=== PATIENT | female | born 1925 | race Caucasian/White ===

== ENCOUNTER 2017-03-23 17:15 | Inpatient (IN) | payer OTHER, MEDICARE ==
[~2017-03-23] VITALS: Ht 152.4 cm; Wt 45.0 kg
[~2017-03-23 17:15] MED LIST: Z.0.NO CURRENT MEDS
[2017-03-23 18:03] VITALS: BP 144/66; PULSE 97; RESP 24; TEMP 98.4; O2SAT 96
--- NOTE | 2017-03-23 18:41 | PD ---
HPI Chief Complaint: General Weakness Time Seen by Provider: 18:28 Travel History International Travel<30 days: No Contact w/Intl Traveler<30days: No Traveled to known affect area: No History of Present Illness HPI 89-year-old female that presents to the ED for evaluation of generalized weakness. Patient presents here for generalized weakness and inability to ambulate because of weakness. Per patient she has "no energy". Per patient she feels "empty" inside. From I can tell she states that she's been having multiple falls. Apparently she had a transfusion about a week ago with a different facility. She states that she will likely go to an ASSISTED. She states that she has hurt her legs multiple times. She states that today she could not get up. Per patient she feels very thirsty. She also has some shortness of breath and she was found to be hypoxic initially and was given oxygen which didn 't brought back her oxygenation. She denies any pain. No fevers chills or sweats. No urinary or bowel movement issues. No allergies to medication. She states she has bruises and contusions from multiple falls. PFSH Past Medical History Arthritis: No Asthma: No Autoimmune Disease: No Blood Disorders: No Heart Rhythm Problems: No Cancer: No Cardiovascular Problems: No High Cholesterol: No Chemotherapy: No Chest Pain: No Congestive Heart Failure: No COPD: No Cerebrovascular Accident: No Diabetes: No Endocrine: No GERD: No Glaucoma: No Genitourinary: No Headaches: No Hepatitis: No Hiatal Hernia: No Hypertension: No Immune Disorder: No Kidney Stones: No Musculoskeletal: No Neurologic: No Psychiatric: No Reproductive: No Respiratory: No Migraines: No Myocardial Infarction: No Radiation Therapy: No Renal Failure: No Seizures: No Sleep Apnea: No Thyroid Disease: No Ulcer: No Past Surgical History Abdominal Surgery: Yes () AICD: No Appendectomy: No Arteriovenous Shunt: No Cardiac Surgery: No Cholecystectomy: No Ear Surgery: No Endocrine Surgery: No Eye Surgery: No Genitourinary Surgery: No Gynecologic Surgery: No Hysterectomy: Yes Insulin Pump: No Joint Replacement: No Oral Surgery: No Pacemaker: No Thoracic Surgery: No Social History Alcohol Use: No Tobacco Use: No Substance Use: No Allergies-Medications (Allergen,Severity, Reaction): Coded Allergies: No Known Allergies (Verified , 03/23/17) Reported Meds & Prescriptions Reported Meds & Active Scripts Active Reported Levoxyl (Levothyroxine Sodium) 50 Mcg Tab 50 Mcg PO DAILY Metoprolol Tartrate 50 Mg Tab 50 Mg PO BID Review of Systems ROS Limitations: Poor Historian Except as stated in HPI: all other systems reviewed are Neg Physical Exam Narrative GENERAL: SKIN: Warm and dry. HEAD: Atraumatic. Normocephalic. EYES: Pupils equal and round. No scleral icterus. No injection or drainage. ENT: No nasal bleeding or discharge. Mucous membranes pink and moist. Tongue is midline. No uvula deviation. NECK: Trachea midline. No JVD. CARDIOVASCULAR: Regular rate and rhythm. No murmurs, S3, S4. RESPIRATORY: No accessory muscle use. Clear to auscultation. Breath sounds equal bilaterally. GASTROINTESTINAL: Abdomen soft, non-tender, nondistended. Hepatic and splenic margins not palpable. MUSCULOSKELETAL: Extremities without clubbing, cyanosis, or edema. No obvious deformities. Full range of motion of the upper and lower extremities bilaterally. 2+ pulses bilaterally. She has abrasions and bruising to her frontal legs bilaterally. Worst on right. NEUROLOGICAL: Awake and alert. No obvious cranial nerve deficits. Motor grossly within normal limits. Five out of 5 muscle strength in the arms and legs. Normal speech. PSYCHIATRIC: Appropriate mood and affect; insight and judgment normal. Data Data Last Documented VS Vital Signs Date Time Temp Pulse Resp B/P (MAP) Pulse Ox O2 Delivery O2 Flow Rate FiO2 03/23/17 18:47 110 18 100 Nasal Cannula 2.00 03/23/17 18:47 135/70 (91) 03/23/17 18:03 98.4 Orders Orders Electrocardiogram (03/23/17 18:28) Complete Blood Count With Diff (03/23/17 18:28) Comprehensive Metabolic Panel (03/23/17 18:28) Ckmb (Isoenzyme) Profile (03/23/17 18:28) Troponin I (03/23/17 18:28) B-Type Natriuretic Peptide (03/23/17 18:28) Prothrombin Time / Inr (Pt) (03/23/17 18:28) Act Partial Throm Time (Ptt) (03/23/17 18:28) Blood Culture (03/23/17 18:28) Urinalysis - C+S If Indicated (03/23/17 18:28) Magnesium (Mg) (03/23/17 18:28) Thyroid Stimulating Hormone (03/23/17 18:28) Chest, Single Ap (03/23/17 18:28) Ct Brain W/O Iv Contrast(Rout) (03/23/17 18:28) Iv Access Insert/Monitor (03/23/17 18:28) Ecg Monitoring (03/23/17 18:28) Oximetry (03/23/17 18:28) Spine, Lumbar Comp W/Obliq (03/23/17 ) Type And Screen (03/23/17 18:32) Sodium Chlor 0.9% 250 Ml Inj (Ns 250 Ml (03/23/17 18:45) Tibia/Fibula (Ap/Lat) (03/23/17 18:34) Tibia/Fibula (Ap/Lat) (03/23/17 ) Sodium Chloride 0.9... W/Pantoprazole In (03/23/17 20:10) Admit Order (Ed Use Only) (03/23/17 20:33) Place In Observation (03/23/17 ) Vital Signs (Adult) Q4H (03/23/17 20:34) Activity Oob With Assistance (03/23/17 20:34) Flight Operations Manager / Telemetry .CONTINUOUS (03/23/17 20:34) Intake + Output MARIA GUADALUPE.QSHIFT (03/23/17 20:34) Diet Heart Healthy (03/24/17 Breakfast) Sodium Chloride 0.9% Flush (Ns Flush) (03/23/17 20:45) Sodium Chloride 0.9% Flush (Ns Flush) (03/23/17 21:00) Basic Metabolic Panel (Bmp) (03/24/17 06:00) Complete Blood Count With Diff (03/24/17 06:00) Pt Request For Service (03/23/17 20:34) Case Management Consult (03/23/17 20:34) Naloxone Inj (Narcan Inj) (03/23/17 20:45) Echo 2d Comp With Doppler (03/23/17 ) Hgb & Hct (03/23/17 23:55) Consult Gastroenterology (03/23/17 ) Labs Laboratory Tests Test 03/23/17 18:15 03/23/17 18:45 White Blood Count 9.0 TH/MM3 Red Blood Count 3.17 MIL/MM3 Hemoglobin 8.0 GM/DL Hematocrit 24.9 % Mean Corpuscular Volume 78.4 FL Mean Corpuscular Hemoglobin 25.1 PG Mean Corpuscular Hemoglobin Concent 32.0 % Red Cell Distribution Width 19.1 % Platelet Count 434 TH/MM3 Mean Platelet Volume 6.9 FL Neutrophils (%) (Auto) 79.1 % Lymphocytes (%) (Auto) 6.4 % Monocytes (%) (Auto) 11.0 % Eosinophils (%) (Auto) 2.6 % Basophils (%) (Auto) 0.9 % Neutrophils # (Auto) 7.1 TH/MM3 Lymphocytes # (Auto) 0.6 TH/MM3 Monocytes # (Auto) 1.0 TH/MM3 Eosinophils # (Auto) 0.2 TH/MM3 Basophils # (Auto) 0.1 TH/MM3 CBC Comment DIFF FINAL Differential Comment Prothrombin Time 12.7 SEC Prothromb Time International Ratio 1.1 RATIO Activated Partial Thromboplast Time 34.1 SEC Blood Urea Nitrogen 13 MG/DL Creatinine 0.91 MG/DL Random Glucose 96 MG/DL Total Protein 6.6 GM/DL Albumin 1.4 GM/DL Calcium Level 7.7 MG/DL Magnesium Level 2.0 MG/DL Alkaline Phosphatase 357 U/L Aspartate Amino Transf (AST/SGOT) 30 U/L Alanine Aminotransferase (ALT/SGPT) 12 U/L Total Bilirubin 0.7 MG/DL Sodium Level 131 MEQ/L Potassium Level 3.8 MEQ/L Chloride Level 94 MEQ/L Carbon Dioxide Level 27.2 MEQ/L Anion Gap 10 MEQ/L Estimat Glomerular Filtration Rate 58 ML/MIN Total Creatine Kinase 8 U/L Troponin I LESS THAN 0.02 NG/ML B-Type Natriuretic Peptide 537 PG/ML Thyroid Stimulating Hormone 3rd Gen 1.320 uIU/ML Urine Color YELLOW Urine Turbidity CLEAR Urine pH 7.0 Urine Specific [place] 1.014 Urine Protein 30 mg/dL Urine Glucose (UA) NEG mg/dL Urine Ketones NEG mg/dL Urine Occult Blood NEG Urine Nitrite NEG Urine Bilirubin NEG Urine Urobilinogen GREATER THAN 12.0 MG/DL Urine Leukocyte Esterase NEG Urine RBC 1 /hpf Urine WBC 1 /hpf Urine Squamous Epithelial Cells 1 /hpf Microscopic Urinalysis Comment CULT NOT INDICATED MDM Medical Decision Making Medical Screen Exam Complete: Yes Emergency Medical Condition: Yes Medical Record Reviewed: Yes Interpretation(s) CBC & BMP Diagram 03/23/17 18:15 Total Protein 6.6, Albumin 1.4 L, Calcium Level 7.7 L, Magnesium Level 2.0, Alkaline Phosphatase 357 H, Aspartate Amino Transf (AST/SGOT) 30, Alanine Aminotransferase (ALT/SGPT) 12, Total Bilirubin 0.7 Troponin and CKMB negative BNP in the 500s CXR shows cardiomegaly with pulmonary edema CT head shows no acute disease Differential Diagnosis Generalized weakness versus anemia versus bleeding versus lower leg weakness versus UTI versus sepsis versus dementia versus multiple falls versus fractures Narrative Course 89-year-old female that presents to the ED for evaluation of generalized weakness. Patient was properly examined and was found to have signs and symptoms consistent with generalized weakness. Labs and imaging were ordered. Labs and imaging showed what appears to be anemia with positive Hemoccult. Patient also appears to have some degree of CHF. This was discussed with the patient. I recommend admission for further workup. I spoke with my attending who recommends against blood transfusion at this time. Patient will be worked about GI for this. Case discussed with Dr. Arevalo who agrees to admission. [facility] Point of Care Internal Pos. & Neg. Controls: Passed Fecal Specimen Occult Blood: Positive Diagnosis Primary Impression: GI bleed Qualified Codes: K92.2 - Gastrointestinal hemorrhage, unspecified Additional Impressions: Generalized weakness CHF (congestive heart failure) Qualified Codes: I50.9 - Heart failure, unspecified Admitting Information Admitting Physician Requests: Observation Roman Peraza Mar 23, 2017 18:41
[2017-03-23] MEDS ORDERED: METO50TA PO (18:45)
[2017-03-23] MEDS ORDERED: SODIUM CHLOR 0.9% 250 ML INJ 250 ML IV ONE (18:45)
[2017-03-23] MEDS ORDERED: LEVO50TA4 PO (18:45)
[2017-03-23] MEDS ORDERED: LEVO50TA53 PO (18:45)
[2017-03-23 18:47] VITALS: BP 135/70; PULSE 99; RESP 16; O2SAT 99
[2017-03-23 18:49] LABS: AUTOMATED NEUTROPHIL # 7.1 TH/MM3 (1.8-7.7); BASOPHIL # 0.1 TH/MM3 (0-0.2); BASOPHIL % 0.9 % (0.0-2.0); EOSINOPHIL # 0.2 TH/MM3 (0-0.4); EOSINOPHIL % 2.6 % (0.0-4.0); HEMATOCRIT 24.9 % (35.0-46.0); HEMO FLAGS DIFF FINAL; LYMPH % 6.4 % (9.0-44.0); LYMPHOCYTE # 0.6 TH/MM3 (1.0-4.8); MEAN CELL VOLUME 78.4 FL (80.0-100.0); MEAN CORPUSCULAR HEMOGLOBIN 25.1 PG (27.0-34.0); NEUT % 79.1 % (16.0-70.0); PLATELET COUNT 434 TH/MM3 (150-450); RED BLOOD COUNT 3.17 MIL/MM3 (4.00-5.30); RED CELL DISTRIBUTION WIDTH 19.1 % (11.6-17.2)
[2017-03-23 19:01] LABS: APTT (PATIENT) 34.1 SEC (24.3-30.1); INTERNATIONAL NORMALIZED RATIO 1.1 RATIO; PROTHROMBIN TIME - PATIENT 12.7 SEC (9.8-11.6)
[2017-03-23 19:07] LABS: BLOOD, URINE NEG (NEG); COMMENT (UR) CULT NOT INDICATED; CULTURE IF INDICATED CULT NOT INDICATED; GLUCOSE,URINE NEG (NEG); KETONE, URINE NEG (NEG); NITRITE,URINE NEG (NEG); SQUAMOUS EPITHELIAL CELL URINE 1 /hpf (0-5); URINE COLOR YELLOW (YELLW/STRAW)
[2017-03-23 19:11] LABS: ALT (GPT) 12 U/L (10-53); ANION GAP 10 MEQ/L (5-15); AST (GOT) 30 U/L (15-37); BICARBONATE 27.2 MEQ/L (21.0-32.0); BLOOD UREA NITROGEN 13 MG/DL (7-18); CHLORIDE 94 MEQ/L (98-107); GLOMERULAR FILTRATION RATE 58 ML/MIN (>89); POTASSIUM 3.8 MEQ/L (3.5-5.1); SODIUM (NA) 131 MEQ/L (136-145)
[2017-03-23 19:21] LABS: ALKALINE PHOSPHATASE 357 U/L (45-117); TOTAL BILIRUBIN ADULT 0.7 MG/DL (0.2-1.0)
[2017-03-23 19:22] LABS: CREATINE KINASE 8 U/L (26-192)
--- NOTE | 2017-03-23 20:44 | RADRPT ---
EXAM DATE/TIME: 03/23/2017 19:05 [facility] COMPARISON: No previous studies available for comparison. INDICATIONS : Syncope. Patient states she kept falling today. MEDICAL HISTORY : None. SURGICAL HISTORY : section. Hysterectomy. ENCOUNTER: Initial ACUITY: 1 day PAIN SCORE: 0/10 LOCATION: Bilateral chest FINDINGS: The heart size is mildly enlarged. The lungs demonstrate diffuse prominence in the interstitial jake ings. No alveolar consolidation is seen. No effusion is seen. The bony structures are grossly intac t. CONCLUSION: Cardiomegaly with prominence of the interstitial markings diffusely representing pulm onary venous hypertension or mild edema. Anand Cook MD on March 23, 2017 at 20:34 Board Certified Radiologist. This report was verified electronically.
[2017-03-23] MEDS ORDERED: SODIUM CHLORIDE 0.9% FLUSH 10 ML FLUSH IV FLUSH PRN (20:45)
[2017-03-23] MEDS ORDERED: NALOXONE HCL 0.4 MG/ML AMP IV PRN (20:45)
--- NOTE | 2017-03-23 20:47 | RADRPT ---
EXAM DATE/TIME: 03/23/2017 19:09 [facility] COMPARISON: No previous studies available for comparison. INDICATIONS : Lower back pain after fall today. MEDICAL HISTORY : None. SURGICAL HISTORY : Hysterectomy. section. ENCOUNTER: Initial ACUITY: 1 day PAIN SCORE: 5/10 LOCATION: Bilateral lower back. FINDINGS: The lumbar vertebral bodies are normal in height. The lumbar vertebral bodies are normally aligned i n the sagittal plane. There is a minimal levocurvature of the lumbar spine seen in the AP projection. The disc spaces are grossly preserved. Minimal marginal osteophytes are seen. There is facet hype rtrophy at the L2-L3 through L5-S1 levels. Vascular calcifications are seen. Clips are seen in the right upper quadrant. CONCLUSION: Mild degenerative change. Anand Cook MD on March 23, 2017 at 20:34 Board Certified Radiologist. This report was verified electronically.
--- NOTE | 2017-03-23 20:49 | RADRPT ---
EXAM DATE/TIME: 03/23/2017 19:16 [facility] COMPARISON: No previous studies available for comparison. INDICATIONS : Left lower leg pain after fall today. MEDICAL HISTORY : None. SURGICAL HISTORY : Hysterectomy. section. ENCOUNTER: Initial ACUITY: 1 day PAIN SCORE: 2/10 LOCATION: Left lower leg. FINDINGS: No fracture is seen. The knee and ankle joints appear aligned. There is minimal spurring at the media l knee joint. The bones are osteopenic. No foreign body is seen. CONCLUSION: No acute disease. Anand Cook MD on March 23, 2017 at 20:47 Board Certified Radiologist. This report was verified electronically.
--- NOTE | 2017-03-23 20:50 | RADRPT ---
EXAM DATE/TIME: 03/23/2017 19:18 [facility] COMPARISON: No previous studies available for comparison. INDICATIONS : Generalized weakness following a fall. RADIATION DOSE: 56.39 CTDIvol (mGy) MEDICAL HISTORY : None SURGICAL HISTORY : Hysterectomy. ENCOUNTER: Initial ACUITY: 1 day PAIN SCALE: 6/10 LOCATION: cranial TECHNIQUE: Multiple contiguous axial images were obtained of the head. Using automated exposure control and adj ustment of the mA and/or kV according to patient size, radiation dose was kept as low as reasonably a chievable to obtain optimal diagnostic quality images. DICOM format image data is available electro nically for review and comparison. FINDINGS: CEREBRUM: The ventricles and cortical sulci are widened. There is decreased density in the cerebral white ren er likely from small vessel ischemic demyelination. No evidence of midline shift, mass lesion, hemorr cachorro or acute infarction. No extra-axial fluid collections are seen. POSTERIOR FOSSA: The cerebellum and brainstem are intact. The 4th ventricle is midline. The cerebellopontine angle i s unremarkable. EXTRACRANIAL: The visualized portion of the orbits is intact. SKULL: The calvaria is intact. No evidence of skull fracture. CONCLUSION: 1. No acute abnormality is seen. 2. Atrophy. Anand Cook MD on March 23, 2017 at 20:48 Board Certified Radiologist. This report was verified electronically.
--- NOTE | 2017-03-23 20:53 | RADRPT ---
EXAM DATE/TIME: 03/23/2017 19:14 [facility] COMPARISON: No previous studies available for comparison. INDICATIONS : Right lower leg pain after fall today. MEDICAL HISTORY : None. SURGICAL HISTORY : Hysterectomy. section. ENCOUNTER: Initial ACUITY: 1 day PAIN SCORE: 2/10 LOCATION: Right lower leg. FINDINGS: An acute fracture is not clearly identified. The knee and ankle joints are grossly norm ally aligned. The bones appear osteopenic. There does appear to be some osteophyte formation seen at the medial aspect of the knee joint. There is also some osteophytes at the patellofemoral region. No foreign bodies are seen. CONCLUSION: No acute abnormality is seen. Anand Cook MD on March 23, 2017 at 20:46 Board Certified Radiologist. This report was verified electronically.
[2017-03-23] MEDS ORDERED: FUROSEMIDE 20 MG/2 ML VIAL IV PUSH ONE (22:00)
[2017-03-23] MEDS: PANTOPRAZOLE INJ 80 MG in SODIUM CHLORIDE 0.9% INJ 100 ML IV SCH (22:14)
[2017-03-23] MEDS: SODIUM CHLORIDE 0.9% FLUSH 10 ML FLUSH IV FLUSH SCH (22:15)
--- NOTE | 2017-03-23 23:17 | HHI.HP ---
[facility] Unknown Admission Diagnosis GI bleed, generalized weakness, CHF Diagnoses: Chief Complaint: weakness and fatigue Travel History International Travel<30 Days: No Contact w/Intl Traveler <30 Da: No Traveled to Known Affected Are: No History of Present Illness Written by CARIE Barillas acting as scribe for [Irina] on 03/23/17 at 23: 16. 89 y/o female with a history of hypothyroid, HTN, anemia, and questionable dementia presented to the ED with complaints of weakness. Patient states she has been very fatigued, and having increased weakness which is causing her to fall. She states yesterday she was falling all day intermittently. She denies any LOC or hitting her head. She denies any chest pain, sob, fever, chills, or dizziness. Also denies any blood in stool or urine. She states 2 weeks ago she [facility] for [facility], and was told her blood count was low. She denies ever having a colonoscopy or EGD in the past, but she is unable to remember the surgeries she has had in the past. She states for the last 3 years she has lost 50 lbs, and has no appetite. Her weight loss began when she was taking care of her who 3 years ago. PCP is [facility] Dr. Margaret Echeverria Review of Systems Except as stated in HPI: all other systems reviewed are Neg Past Family Social History Past Medical History Hypothyroid HTN Anemia Past Surgical History C Section Reported Medications Reported Meds & Active Scripts Active Reported Levoxyl (Levothyroxine Sodium) 50 Mcg Tab 50 Mcg PO DAILY Metoprolol Tartrate 50 Mg Tab 50 Mg PO BID Allergies: Coded Allergies: No Known Allergies (Verified , 03/23/17) Active Ordered Medications Current Medications Medications (Trade) Dose Ordered Sig/Jennifer Route Start Time Stop Time Status Last Admin Sodium Chloride 250 ml @ 15 mls/hr ONCE ONCE IV 03/23/17 18:45 03/24/17 11:24 Pantoprazole Sodium 80 mg/ Sodium Chloride 100 ml @ 10 mls/hr Q10H IV 03/23/17 20:10 03/23/17 22:14 (NS Flush) 2 ml UNSCH PRN IV FLUSH 03/23/17 20:45 (NS Flush) 2 ml BID IV FLUSH 03/23/17 21:00 03/23/17 22:15 (Narcan Inj) 0.4 mg UNSCH PRN IV 03/23/17 20:45 (Synthroid) 50 mcg DAILY@0600 PO 03/24/17 06:00 (Lopressor) 50 mg BID PO 03/24/17 09:00 (Pneumovax-23 Inj) 25 mcg ONCE ONCE IM 03/25/17 10:00 03/25/17 10:01 Family History Mom: at age 95 after a hip fx Patient denies any heart disease or cancer in family. Social History Tobacco use: Denies Alcohol use: Occasionally Illicit drug use: Denies Physical Exam Vital Signs Vital Signs Date Time Temp Pulse Resp B/P (MAP) Pulse Ox O2 Delivery O2 Flow Rate FiO2 03/23/17 18:47 110 18 100 Nasal Cannula 2.00 03/23/17 18:47 99 16 135/70 (91) 99 Nasal Cannula 2.00 03/23/17 18:03 98.4 97 24 144/66 (92) 96 Physical Exam GENERAL: This is a well-nourished, well-developed patient, in no apparent distress. SKIN: Multiple scattered ecchymotic areas HEAD: Atraumatic. Normocephalic. EYES: Pupils equal round and reactive. Extraocular motions intact. ENT: Nose without bleeding, purulent drainage or septal hematoma. Airway patent. NECK: Trachea midline. No JVD CARDIOVASCULAR: Regular rate and rhythm without murmurs, gallops, or rubs. RESPIRATORY: Clear to auscultation. Breath sounds equal bilaterally. No wheezes , rales, or rhonchi. GASTROINTESTINAL: Abdomen soft, non-tender, nondistended. No hepato-splenomegaly , or palpable masses. No guarding. MUSCULOSKELETAL: Extremities without clubbing, cyanosis, or edema. No joint tenderness, effusion, or edema noted. No calf tenderness. NEUROLOGICAL: Awake and alert. Motor and sensory grossly within normal limits. Normal speech. Laboratory Laboratory Tests Test 03/23/17 18:15 03/23/17 18:45 White Blood Count 9.0 Red Blood Count 3.17 Hemoglobin 8.0 Hematocrit 24.9 Mean Corpuscular Volume 78.4 Mean Corpuscular Hemoglobin 25.1 Mean Corpuscular Hemoglobin Concent 32.0 Red Cell Distribution Width 19.1 Platelet Count 434 Mean Platelet Volume 6.9 Neutrophils (%) (Auto) 79.1 Lymphocytes (%) (Auto) 6.4 Monocytes (%) (Auto) 11.0 Eosinophils (%) (Auto) 2.6 Basophils (%) (Auto) 0.9 Neutrophils # (Auto) 7.1 Lymphocytes # (Auto) 0.6 Monocytes # (Auto) 1.0 Eosinophils # (Auto) 0.2 Basophils # (Auto) 0.1 CBC Comment DIFF FINAL Differential Comment Prothrombin Time 12.7 Prothromb Time International Ratio 1.1 Activated Partial Thromboplast Time 34.1 Blood Urea Nitrogen 13 Creatinine 0.91 Random Glucose 96 Total Protein 6.6 Albumin 1.4 Calcium Level 7.7 Magnesium Level 2.0 Alkaline Phosphatase 357 Aspartate Amino Transf (AST/SGOT) 30 Alanine Aminotransferase (ALT/SGPT) 12 Total Bilirubin 0.7 Sodium Level 131 Potassium Level 3.8 Chloride Level 94 Carbon Dioxide Level 27.2 Anion Gap 10 Estimat Glomerular Filtration Rate 58 Total Creatine Kinase 8 Troponin I LESS THAN 0.02 B-Type Natriuretic Peptide 537 Thyroid Stimulating Hormone 3rd Gen 1.320 Urine Color YELLOW Urine Turbidity CLEAR Urine pH 7.0 Urine Specific [place] 1.014 Urine Protein 30 Urine Glucose (UA) NEG Urine Ketones NEG Urine Occult Blood NEG Urine Nitrite NEG Urine Bilirubin NEG Urine Urobilinogen GREATER THAN 12.0 Urine Leukocyte Esterase NEG Urine RBC 1 Urine WBC 1 Urine Squamous Epithelial Cells 1 Microscopic Urinalysis Comment CULT NOT INDICATED Date/Time Source Procedure Growth Status 03/23/17 18:40 Blood Peripheral Aerobic Blood Culture Pending Received 03/23/17 18:40 Blood Peripheral Anaerobic Blood Culture Pending Received Result Diagram: 03/23/17181403/23/171814 Caprini VTE Risk Assessment Caprini VTE Risk Assessment: Mod/High Risk (score >= 2) VTE Pharm Contraindication: Hemorrhage Caprini Risk Assessment Model Point Value = 1 Point Value = 2 Point Value = 3 Point Value = 5 Age 41-60 Minor surgery BMI > 25 kg/m2 Swollen legs Varicose veins or History of unexplained or recurrent spontaneous Oral contraceptives or hormone replacement Sepsis (< 1 month) Serious lung disease, including pneumonia (< 1 month) Abnormal pulmonary function Acute myocardial infarction Congestive heart failure (< 1 month) History of inflammatory bowel disease Medical patient at bed rest Age 61-74 Arthroscopic surgery Major open surgery (> 45 min) Laparoscopic surgery (> 45 min) Malignancy Confined to bed (> 72 hours) Immobilizing plaster cast Central venous access Age >= 75 History of VTE Family history of VTE Factor V Leiden Prothrombin [id number] Lupus anticoagulant Anticardiolipin antibodies Elevated serum homocysteine Heparin-induced thrombocytopenia Other congenital or acquired thrombophilia Stroke (< 1 month) Elective arthroplasty Hip, pelvis, or leg fracture Acute spinal cord injury (< 1 month) Prophylaxis Regimen Total Risk Factor Score Risk Level Prophylaxis Regimen 0-1 Low Early ambulation 2 Moderate Order ONE of the following: *Sequential Compression Device (SCD) *Heparin 5000 units SQ BID 3-4 Higher Order ONE of the following medications: *Heparin 5000 units SQ TID *Enoxaparin/Lovenox 40 mg SQ daily (WT < 150 kg, CrCl > 30 mL/min) *Enoxaparin/Lovenox 30 mg SQ daily (WT < 150 kg, CrCl > 10-29 mL/min) *Enoxaparin/Lovenox 30 mg SQ BID (WT < 150 kg, CrCl > 30 mL/min) AND/OR *Sequential Compression Device (SCD) 5 or more Highest Order ONE of the following medications: *Heparin 5000 units SQ TID (Preferred with Epidurals) *Enoxaparin/Lovenox 40 mg SQ daily (WT < 150 kg, CrCl > 30 mL/min) *Enoxaparin/Lovenox 30 mg SQ daily (WT < 150 kg, CrCl > 10-29 mL/min) *Enoxaparin/Lovenox 30 mg SQ BID (WT < 150 kg, CrCl > 30 mL/min) AND *Sequential Compression Device (SCD) Assessment and Plan Problem List: (1) GI bleed ICD Code: K92.2 - Gastrointestinal hemorrhage, unspecified Status: Acute (2) CHF (congestive heart failure) ICD Code: I50.9 - Heart failure, unspecified Status: Acute (3) Generalized weakness ICD Code: R53.1 - Weakness Status: Acute Assessment and Plan 89 y/o female with a history of hypothyroid, HTN, anemia, and questionable dementia presented to the ED with complaints of weakness. Patient states she has been very fatigued, and having increased weakness which is causing her to fall. GI bleed, Hgb 8.2-->7.2, guaiac positive -Serial H&H, 1 unit PRBCs ordered -Consult GI for recommendations -Protonix IV drip -Will request records from [facility] CHF, exacerbation, BNP 537 Chest xray reviewed and shows cardiomegaly with prominence of the interstitial markings diffusely representing pulmonary venous HTN or mild edema -Lasix 20 mg IV given x1 -2D echo ordered Physical deconditioning, suspected related to GI bleed -PT eval and treat -Case management consult, patient lives alone and wants to go to an [facility] once discharged Hypothyroid, chronic -Reorder home medications levothyroxine Hypertension, chronic -Reorder home medications metoprolol -Monitor vitals DVT prophylaxis: SCDs, hold chemical due to gi bleed GI prophylaxis: Protonix This note was transcribed by scribe [Ana Cunningham]. I, Dr. Cheo Arevalo personally performed the history, physical exam, and medical decision making; and confirmed the accuracy of the information in the transcribed note. Authenticated by Dr. Cheo Arevalo on 03/23/17 at 23:16. Discussed Condition With Patient and ED physician Problem Qualifiers (1) GI bleed: Qualified Codes: K92.2 - Gastrointestinal hemorrhage, unspecified (2) CHF (congestive heart failure): Qualified Codes: I50.9 - Heart failure, unspecified Ana Cunningham Mar 23, 2017 23:17 Cheo Arevalo MD Mar 24, 2017 08:13
[2017-03-24] VITALS (16 sets, daily range): BP systolic 100–156; BP diastolic 63–80; PULSE 60–89; RESP 16–18; TEMP 97–99; O2SAT 93–100
[2017-03-24 00:41] LABS: HEMATOCRIT 23.2 % (35.0-46.0); REVIEW FLAG FINAL
[2017-03-24] MEDS: LEVOTHYROXINE SODIUM 50 MCG TAB PO SCH (06:00)
[2017-03-24] MEDS: SODIUM CHLORIDE 0.9% FLUSH 10 ML FLUSH IV FLUSH SCH ×2 (08:13→22:12)
[2017-03-24] MEDS: METOPROLOL TARTRATE 50 MG TAB PO SCH ×2 (08:13→21:00)
[2017-03-24] MEDS: PANTOPRAZOLE INJ 80 MG in SODIUM CHLORIDE 0.9% INJ 100 ML IV SCH ×2 (08:14→16:17)
--- NOTE | 2017-03-24 11:06 | EKG ---
Date Performed: 03/23/2017 Time Performed: 18:32:24 PTAGE: 89 years EKG: Atrial fibrillation with controlled ventricular rate Poor R-wave progression, probably norm al variant Cannot exclude anteroseptal myocardial infarction ABNORMAL ECG PREVIOUS TRACING : 01/28/2006 03.02 Compared to the old tracing, the atrial fibrillation is new . DOCTOR: Carl Ku Interpretating Date/Time 03/24/2017 11:05:35
--- NOTE | 2017-03-24 11:38 | HHI.PR ---
Subjective Remarks Follow up for anemia, weakness. The patient reports feeling better today. She states her weakness has improved after receiving blood, almost completed 2nd unit. Denies any lightheadedness, dizziness, chest pain, or shortness of breath. She also denies any abdominal pain, nausea/vomiting. She has not had a BM however states she hasn't ate much over the past few days. She says her BMs are usually very regular and she has no problem with constipation. She declines any stool softener/laxative. She is agreeable to GI evaluation and work up with endoscopy if recommended. Objective Vitals Vital Signs Date Time Temp Pulse Resp B/P (MAP) Pulse Ox O2 Delivery O2 Flow Rate FiO2 03/24/17 10:34 146/78 (100) 03/24/17 09:36 148/68 (94) 03/24/17 07:49 97.0 89 18 156/76 (102) 100 03/24/17 05:48 98.6 76 16 126/80 95 03/24/17 05:12 98.2 70 16 122/68 96 03/24/17 04:33 98.6 72 16 128/72 96 03/24/17 04:21 98.5 74 16 130/70 96 03/24/17 04:20 98.5 60 18 144/63 (90) 93 03/24/17 04:02 98.2 68 18 128/68 96 03/24/17 04:01 98.2 03/24/17 03:59 98.4 80 16 100/68 96 03/24/17 00:45 98.1 86 16 147/67 (93) 96 03/23/17 18:47 110 18 100 Nasal Cannula 2.00 03/23/17 18:47 99 16 135/70 (91) 99 Nasal Cannula 2.00 03/23/17 18:03 98.4 97 24 144/66 (92) 96 I/O 03/23/17 03/23/17 03/23/17 03/24/17 03/24/17 03/24/17 07:00 15:00 23:00 07:00 15:00 23:00 Intake Total 360 ml 255 ml Output Total 300 ml Balance -300 ml 360 ml 255 ml Intake Oral 300 ml IV Total 60 ml Packed Cells 250 ml Blood Product IV Normal Saline Flush 5 ml Output Urine Total 300 ml Result Diagram: 03/24/17 0022 03/23/175 Imaging Last Impressions Tibia/Fibula X-Ray 03/23/17 1834 Signed Impressions: Service Date/Time: Thursday, March 23, 2017 19:14 - CONCLUSION: No acute abnormality is seen. Anand Cook MD Head CT 03/23/171827 Signed Impressions: Service Date/Time: Thursday, March 23, 2017 19:18 - CONCLUSION: 1. No acute abnormality is seen. 2. Atrophy. Anand Cook MD Chest X-Ray 03/23/171827 Signed Impressions: Service Date/Time: Thursday, March 23, 2017 19:05 - CONCLUSION: Cardiomegaly with prominence of the interstitial markings diffusely representing pulmonary venous hypertension or mild edema. Anand Cook MD Lumbar Spine X-Ray 03/23/17 0000 Signed Impressions: Service Date/Time: Thursday, March 23, 2017 19:09 - CONCLUSION: Mild degenerative change. Anand Cook MD Objective Remarks GENERAL: Well-nourished, well-developed very pleasant elderly female patient in [facility]. SKIN: Warm and dry. Scattered ecchymosis throughout chest and extremities. HEENT: Normocephalic. Atraumatic.Pupils equal and round. Mucous membranes pink and moist. CARDIOVASCULAR: Regular rate and rhythm. S1, S2 noted. No murmur appreciated. RESPIRATORY: No accessory muscle use. Clear to auscultation. Breath sounds equal bilaterally. GASTROINTESTINAL: Abdomen soft, non-tender, nondistended. Normoactive bowel sounds x4. MUSCULOSKELETAL: No obvious deformities. Extremities without clubbing, cyanosis , or edema. NEUROLOGICAL: Awake and alert. No obvious cranial nerve deficits. Motor grossly within normal limits. Normal speech. PSYCHIATRIC: Appropriate mood and affect; insight and judgment normal. Medications and IVs Current Medications Medications (Trade) Dose Ordered Sig/Jennifer Route Start Time Stop Time Status Last Admin Pantoprazole Sodium 80 mg/ Sodium Chloride 100 ml @ 10 mls/hr Q10H IV 03/23/17 20:10 03/24/17 08:14 (NS Flush) 2 ml UNSCH PRN IV FLUSH 03/23/17 20:45 (NS Flush) 2 ml BID IV FLUSH 03/23/17 21:00 03/24/17 08:13 (Narcan Inj) 0.4 mg UNSCH PRN IV 03/23/17 20:45 (Synthroid) 50 mcg DAILY@0600 PO 03/24/17 06:00 03/24/17 06:00 (Lopressor) 50 mg BID PO 03/24/17 09:00 03/24/17 08:13 (Pneumovax-23 Inj) 25 mcg ONCE ONCE IM 03/25/17 10:00 03/25/17 10:01 A/P Problem List: (1) GI bleed ICD Code: K92.2 - Gastrointestinal hemorrhage, unspecified Status: Acute (2) CHF (congestive heart failure) ICD Code: I50.9 - Heart failure, unspecified Status: Acute (3) Generalized weakness ICD Code: R53.1 - Weakness Status: Acute Assessment and Plan 89 y/o female with a history of hypothyroid, HTN, anemia, and questionable dementia presented to the ED with complaints of weakness. Patient states she has been very fatigued, and having increased weakness which is causing her to fall. GI bleed with Symptomatic Anemia: Hgb 8.2-->7.2, guaiac positive in the ED. Patient with weakness and shortness of breath. -Monitor Serial H&H, 2 unit PRBCs transfused (lasix given between units) -Consult GI for recommendations -Continue Protonix IV drip -Will request records from [facility] CHF Exacerbation: BNP elevated at 537. CXR images reviewed, shows cardiomegaly with prominence of the interstitial markings diffusely representing pulmonary venous HTN or mild edema. -Lasix 20 mg IV given x1, symptoms resolved after lasix and blood transfusion -2D echo ordered and pedning Physical deconditioning, suspected related to GI bleed -PT eval and treat -Case management consult, patient lives alone and wants to go to an [facility] once discharged Hypothyroid, chronic -Continued home medications levothyroxine Hypertension, chronic -Continued home medications metoprolol -Monitor vitals DVT prophylaxis: SCDs, hold chemical prophylaxis due to gi bleed GI prophylaxis: Protonix Discharge Planning Patient plans to go to [facility] after discharge. Case management assisting with discharge planning. GI evaluation and work up pending. Likely discharge in 2 days. Problem Qualifiers (1) GI bleed: Qualified Codes: K92.2 - Gastrointestinal hemorrhage, unspecified (2) CHF (congestive heart failure): Qualified Codes: I50.9 - Heart failure, unspecified Carina Rascon PA-C Mar 24, 2017 11:38 am
[2017-03-24 14:47] LABS: BASOPHIL # 0.1 TH/MM3 (0-0.2); BASOPHIL % 0.7 % (0.0-2.0); EOSINOPHIL # 0.2 TH/MM3 (0-0.4); EOSINOPHIL % 2.4 % (0.0-4.0); HEMATOCRIT 32.2 % (35.0-46.0); HEMO FLAGS DIFF FINAL; LYMPHOCYTE # 0.2 TH/MM3 (1.0-4.8); MEAN CELL VOLUME 80.3 FL (80.0-100.0); MEAN CORPUSCULAR HEMOGLOBIN 26.1 PG (27.0-34.0); MEAN CORPUSCULAR HGB CONC 32.5 % (32.0-36.0); MONO % 9.6 % (0.0-8.0); NEUT % 84.3 % (16.0-70.0); PLATELET COUNT 449 TH/MM3 (150-450); RED BLOOD COUNT 4.01 MIL/MM3 (4.00-5.30); RED CELL DISTRIBUTION WIDTH 17.6 % (11.6-17.2); WHITE BLOOD COUNT 8.3 TH/MM3 (4.0-11.0)
[2017-03-24 14:59] LABS: BICARBONATE 29.8 MEQ/L (21.0-32.0); POTASSIUM 3.4 MEQ/L (3.5-5.1)
--- NOTE | 2017-03-24 15:17 | ECHRPT ---
Indication: CHF CONCLUSIONS The left ventricular systolic function is hogpjvea-[id number] reduced with an estimated ejection fra ction in the range of 35-40%.normal left ventricular size. There is global left ventricular dysfunction. Mild concentric left ventricular hypertrophy. The left atrial size is moderately dilated. The right atrial size is moderately dilated. No atrial level shunt is demonstrated by color flow Doppler interrogation. Mild thickening of the mitral valve leaflets. Moderate mitral valve regurgitation. No mitral valve stenosis. Aortic valve sclerosis is present. Moderate aortic valve regurgitation with a central jet. No aortic valve stenosis. There is estimated mild pulmonary hypertension present (range 40-50 mmHg). There is moderate tricuspid regurgitation. There is estimated mild pulmonary hypertension present (range 40-50 mmHg). Trivial pulmonary valve regurgitation. No pulmonary stenosis. The inferior vena cava (IVC) is normal in size. There is less than 50% respiratory change in dimension of the inferior vena cava (abnormal). BP: 156 / 76 HR: 89 Rhythm: Sinus MEASUREMENTS (Male / Female) Normal Values Technical Quality:Fair 2D ECHO LV Diastolic Diameter PLAX 4.9 cm 4.2 - 5.9 / 3.9 - 5.3 cm LV Systolic Diameter PLAX 4.2 cm IVS Diastolic Thickness 1.0 cm 0.6 - 1.0 / 0.6 - 0.9 cm LVPW Diastolic Thickness 1.0 cm 0.6 - 1.0 / 0.6 - 0.9 cm LV Relative Wall Thickness 0.4 LVOT Diameter 2.1 cm Aortic Root Diameter 3.0 cm LA Systolic Diameter LX 3.1 cm 3.0 - 4.0 / 2.7 - 3.8 cm LA Volume Index 65.1 cm/m 16 - 28 cm/m M-MODE AV Cusp Separation MM 2.0 cm DOPPLER AV Peak Velocity 143.0 cm/s AV Peak Gradient 8.2 mmHg AV Mean Gradient 5.0 mmHg AV Velocity Time Integral 28.5 cm AI Peak Velocity 506.3 cm/s AI Peak Gradient 102.5 mmHg AI Pressure Half Time 498.3 ms LVOT Peak Velocity 88.8 cm/s LVOT Peak Gradient 3.2 mmHg LVOT Velocity Time Integral 15.9 cm LVOT Cardiac Index 3224.2 cm/minm AV Area Cont Eq vti 1.9 cm AV Area Cont Eq pk 2.2 cm LV E' Lateral Velocity 8.7 cm/s LV E' Septal Velocity 2.8 cm/s TR Peak Velocity 292.0 cm/s TR Peak Gradient 34.1 mmHg PV Peak Velocity 43.9 cm/s PV Peak Gradient 0.8 mmHg FINDINGS LEFT VENTRICLE The left ventricular systolic function is dmwcoblq-[id number] reduced with an estimated ejection fra ction in the range of 35-40%.normal left ventricular size. There is global left ventricular dysfunction. Mild concentric left ventricular hypertrophy. RIGHT VENTRICLE Normal right ventricular size and systolic function. LEFT ATRIUM The left atrial size is moderately dilated. RIGHT ATRIUM The right atrial size is moderately dilated. ATRIAL SEPTUM No atrial level shunt is demonstrated by color flow Doppler interrogation. AORTA The aortic root and proximal ascending aorta are normal in size on limited imaging. MITRAL VALVE Mild thickening of the mitral valve leaflets. Moderate mitral valve regurgitation. No mitral valve stenosis. AORTIC VALVE Trileaflet aortic valve. Aortic valve sclerosis is present. Moderate aortic valve regurgitation with a central jet. No aortic valve stenosis. TRICUSPID VALVE There is estimated mild pulmonary hypertension present (range 40-50 mmHg). Structurally normal tricuspid valve. There is moderate tricuspid regurgitation. There is estimated mild pulmonary hypertension present (range 40-50 mmHg). PULMONARY VALVE Trivial pulmonary valve regurgitation. No pulmonary stenosis. VESSELS The inferior vena cava (IVC) is normal in size. There is less than 50% respiratory change in dimension of the inferior vena cava (abnormal). PERICARDIUM No pericardial effusion. Carl Ku MD (Electronically Signed) Final Date:24 March 2017 15:17
--- NOTE | 2017-03-24 17:17 | PD.CONS ---
HPI History of Present Illness This is a 89 year old female who presented to the emergency room for evaluation of generalized weakness. She was recently noted to be anemic and was transfused at [facility] about 3 weeks ago. She was found to be anemic on this admission with a HH of 8.0/24.9. She was transfused 2 units of PRBC and her HH is now 10.5/32.2. She was also noted to have Hemoccult positive stool. She has not seen any GI blood loss and denies any nausea, vomiting, abdominal pain, changes in bowel habits, melena, or hematochezia. She has lost about 50 lbs over the past 3 years, but states she does not eat much. She has never had an EGD or colonoscopy and denies any known history of peptic ulcer disease or diverticulosis. (Jennifer Marc) PFSH Past Medical History Hypothyroid HTN Anemia Past Surgical History C Section (Jennifer Marc) Coded Allergies: No Known Allergies (Verified , 03/23/17) Medications Allergies Coded Allergies Type Severity Reaction Last Updated Verified No Known Allergies 03/23/17 Yes Active Scripts Medications Dose Route/Sig Max Daily Dose Days Date Category Levoxyl (Levothyroxine Sodium) 50 Mcg Tab 50 Mcg PO DAILY 03/23/17 Reported Metoprolol Tartrate 50 Mg Tab 50 Mg PO BID 03/23/17 Reported Family History Mom at age 95 after a hip fx Social History Tobacco use: Denies Alcohol use: Occasionally Illicit drug use: Denies (Jennifer Marc) Review of Systems Constitutional: COMPLAINS OF: Fatigue, Weight loss, DENIES: Fever, Chills Respiratory: DENIES: Cough Cardiovascular: DENIES: Chest pain Gastrointestinal: DENIES: Abdominal pain, Black stools, Bloody stools, Constipation, Diarrhea, Nausea, Vomiting, Anorexia, Odynophagia, Heartburn Hematologic/lymphatic: DENIES: Bruising Neurologic: DENIES: Headache Psychiatric: DENIES: Confusion (Jennifer Marc) GI Exam Vitals I&O Vital Signs Date Time Temp Pulse Resp B/P (MAP) Pulse Ox O2 Delivery O2 Flow Rate FiO2 03/24/17 16:38 99.0 75 18 139/69 (92) 96 03/24/17 11:31 98.7 75 18 156/77 (103) 100 03/24/17 10:34 146/78 (100) 03/24/17 09:36 148/68 (94) 03/24/17 07:49 97.0 89 18 156/76 (102) 100 03/24/17 05:48 98.6 76 16 126/80 95 03/24/17 05:12 98.2 70 16 122/68 96 03/24/17 04:33 98.6 72 16 128/72 96 03/24/17 04:21 98.5 74 16 130/70 96 03/24/17 04:20 98.5 60 18 144/63 (90) 93 03/24/17 04:02 98.2 68 18 128/68 96 03/24/17 04:01 98.2 03/24/17 03:59 98.4 80 16 100/68 96 03/24/17 00:45 98.1 86 16 147/67 (93) 96 03/23/17 18:47 110 18 100 Nasal Cannula 2.00 03/23/17 18:47 99 16 135/70 (91) 99 Nasal Cannula 2.00 03/23/17 18:03 98.4 97 24 144/66 (92) 96 I/O 03/23/17 03/23/17 03/23/17 03/24/17 03/24/17 03/24/17 07:00 15:00 23:00 07:00 15:00 23:00 Intake Total 360 ml 750 ml Output Total 300 ml Balance -300 ml 360 ml 750 ml Intake Oral 300 ml 240 ml IV Total 60 ml Packed Cells 500 ml Blood Product IV Normal Saline Flush 10 ml Output Urine Total 300 ml # Voids 2 Imaging Last Impressions Tibia/Fibula X-Ray 03/23/171833 Signed Impressions: Service Date/Time: Thursday, March 23, 2017 19:14 - CONCLUSION: No acute abnormality is seen. Anand Cook MD Head CT 03/23/171827 Signed Impressions: Service Date/Time: Thursday, March 23, 2017 19:18 - CONCLUSION: 1. No acute abnormality is seen. 2. Atrophy. Anand Cook MD Chest X-Ray 03/23/171827 Signed Impressions: Service Date/Time: Thursday, March 23, 2017 19:05 - CONCLUSION: Cardiomegaly with prominence of the interstitial markings diffusely representing pulmonary venous hypertension or mild edema. Anand Cook MD Lumbar Spine X-Ray 03/23/17 0000 Signed Impressions: Service Date/Time: Thursday, March 23, 2017 19:09 - CONCLUSION: Mild degenerative change. Anand Cook MD Laboratory Test 03/23/17 18:15 03/23/17 18:45 03/24/17 00:22 03/24/17 12:45 White Blood Count 9.0 TH/MM3 8.3 TH/MM3 Red Blood Count 3.17 MIL/MM3 4.01 MIL/MM3 Hemoglobin 8.0 GM/DL 7.2 GM/DL 10.5 GM/DL Hematocrit 24.9 % 23.2 % 32.2 % Mean Corpuscular Volume 78.4 FL 80.3 FL Mean Corpuscular Hemoglobin 25.1 PG 26.1 PG Mean Corpuscular Hemoglobin Concent 32.0 % 32.5 % Red Cell Distribution Width 19.1 % 17.6 % Platelet Count 434 TH/MM3 449 TH/MM3 Mean Platelet Volume 6.9 FL 6.9 FL Neutrophils (%) (Auto) 79.1 % 84.3 % Lymphocytes (%) (Auto) 6.4 % 3.0 % Monocytes (%) (Auto) 11.0 % 9.6 % Eosinophils (%) (Auto) 2.6 % 2.4 % Basophils (%) (Auto) 0.9 % 0.7 % Neutrophils # (Auto) 7.1 TH/MM3 7.0 TH/MM3 Lymphocytes # (Auto) 0.6 TH/MM3 0.2 TH/MM3 Monocytes # (Auto) 1.0 TH/MM3 0.8 TH/MM3 Eosinophils # (Auto) 0.2 TH/MM3 0.2 TH/MM3 Basophils # (Auto) 0.1 TH/MM3 0.1 TH/MM3 CBC Comment DIFF FINAL DIFF FINAL Differential Comment Prothrombin Time 12.7 SEC Prothromb Time International Ratio 1.1 RATIO Activated Partial Thromboplast Time 34.1 SEC Blood Urea Nitrogen 13 MG/DL 15 MG/DL Creatinine 0.91 MG/DL 0.94 MG/DL Random Glucose 96 MG/DL 155 MG/DL Total Protein 6.6 GM/DL Albumin 1.4 GM/DL Calcium Level 7.7 MG/DL 8.5 MG/DL Magnesium Level 2.0 MG/DL Alkaline Phosphatase 357 U/L Aspartate Amino Transf (AST/SGOT) 30 U/L Alanine Aminotransferase (ALT/SGPT) 12 U/L Total Bilirubin 0.7 MG/DL Sodium Level 131 MEQ/L 132 MEQ/L Potassium Level 3.8 MEQ/L 3.4 MEQ/L Chloride Level 94 MEQ/L 93 MEQ/L Carbon Dioxide Level 27.2 MEQ/L 29.8 MEQ/L Anion Gap 10 MEQ/L 9 MEQ/L Estimat Glomerular Filtration Rate 58 ML/MIN 56 ML/MIN Total Creatine Kinase 8 U/L Troponin I LESS THAN 0.02 NG/ML B-Type Natriuretic Peptide 537 PG/ML Thyroid Stimulating Hormone 3rd Gen 1.320 uIU/ML Urine Color YELLOW Urine Turbidity CLEAR Urine pH 7.0 Urine Specific [place] 1.014 Urine Protein 30 mg/dL Urine Glucose (UA) NEG mg/dL Urine Ketones NEG mg/dL Urine Occult Blood NEG Urine Nitrite NEG Urine Bilirubin NEG Urine Urobilinogen GREATER THAN 12.0 MG/DL Urine Leukocyte Esterase NEG Urine RBC 1 /hpf Urine WBC 1 /hpf Urine Squamous Epithelial Cells 1 /hpf Microscopic Urinalysis Comment CULT NOT INDICATED Date/Time Source Procedure Growth Status 03/23/17 18:40 Blood Peripheral Aerobic Blood Culture - Preliminary NO GROWTH IN 1 DAY Resulted 03/23/17 18:40 Blood Peripheral Anaerobic Blood Culture - Preliminary NO GROWTH IN 1 DAY Resulted Physical Examination HEENT: Normocephalic; atraumatic; no jaundice. CHEST: CTA CARDIAC: RRR. ABDOMEN: Soft, nondistended, nontender; no hepatosplenomegaly; bowel sounds are present in all four quadrants. EXTREMITIES: No clubbing, cyanosis, or edema. SKIN: Ecchymotic area SPECIALTY SALES REPRESENTATIVE: No focal deficits; alert and oriented times three. (Jennifer Marc) Assessment and Plan Plan ASSESSMENT: - Anemia with Hemoccult. She was noted to be anemic and transfused 3 weeks ago at [facility]. HH of 8.0/24.9. She was transfused 2 units of PRBC and her HH is now 10.5/32.2. She was also noted to have Hemoccult positive stool. No GI symptoms. Never had egd/colonoscopy. Denies any history of PUD. She would like to proceed with EGD/Colonoscopy. - Abn. Wt. Loss. 50 lb weight loss in past 3 years. EGD/Colonoscopy in am. - CHF, per attending. PLAN: - Plan for EGD/Colonoscopy in am - Obtain consents - Clear liquids - NPO after MN - Golytely prep - PPI - Monitor CBC - Transfuse as necessary - Supportive care - Further recommendations to follow based on results of above - Pt seen and examined by Dr. Brewer and myself and this note is written on his behalf Pt now states that she does not wish to proceed with egd/colonoscopy. States she wants to go to rehab for a week or two and then have as outpatient. (Jennifer Marc) Physician Comments Plan as above, further recommendations to follow. (Lillian Brewer MD) Jennifer Marc Mar 24, 2017 17:17 Lillian Brewer MD Mar 24, 2017 21:48
[2017-03-24] MEDS ORDERED: PEG (High)/E-LYTE SOLN 4000 ML BTL PO ONE (17:30)
[2017-03-25] VITALS (10 sets, daily range): BP systolic 133–163; BP diastolic 67–81; PULSE 75–88; RESP 16–18; TEMP 97.5–98.6; O2SAT 96–100
[2017-03-25] MEDS: LEVOTHYROXINE SODIUM 50 MCG TAB PO SCH (05:24)
[2017-03-25] MEDS: PANTOPRAZOLE INJ 80 MG in SODIUM CHLORIDE 0.9% INJ 100 ML IV SCH ×2 (05:27→08:08)
[2017-03-25] MEDS: SODIUM CHLORIDE 0.9% FLUSH 10 ML FLUSH IV FLUSH SCH ×2 (08:06→20:14)
[2017-03-25] MEDS: METOPROLOL TARTRATE 50 MG TAB PO SCH ×2 (08:08→20:14)
--- NOTE | 2017-03-25 09:20 | HHI.GIFU ---
Subjective Remarks Resting in bed. No obvious active GI bleeding. Denies any GI symptoms. Pt has decided not to have EGD/Colonoscopy. States she already has an appointment to see GI as outpatient and does not want to have this done until she has rehab for 5 days and is stronger. Explained to patient concern for GI bleeding, as she recently required transfusion 3 weeks ago and now has dropped her blood count again. She verbalizes understanding, but refusing GI workup. (Jennifer Marc) Objective Vitals I&O Vital Signs Date Time Temp Pulse Resp B/P (MAP) Pulse Ox O2 Delivery O2 Flow Rate FiO2 03/25/17 07:35 98.0 85 16 141/67 (91) 97 03/25/17 04:14 75 03/25/17 03:19 98.0 82 18 146/68 (94) 96 03/25/17 01:11 97.9 88 18 163/81 (108) 100 03/25/17 00:04 77 03/24/17 21:44 97.9 66 16 146/73 (97) 96 03/24/17 20:01 88 03/24/17 16:38 99.0 75 18 139/69 (92) 96 03/24/17 11:31 98.7 75 18 156/77 (103) 100 03/24/17 10:34 146/78 (100) 03/24/17 09:36 148/68 (94) I/O 03/24/17 03/24/17 03/24/17 03/25/17 03/25/17 03/25/17 07:00 15:00 23:00 07:00 15:00 23:00 Intake Total 360 ml 750 ml 500 ml Balance 360 ml 750 ml 500 ml Intake Oral 300 ml 240 ml 500 ml IV Total 60 ml Packed Cells 500 ml Blood Product IV Normal Saline Flush 10 ml # Voids 2 1 Laboratory Laboratory Tests Test 03/24/17 12:45 White Blood Count 8.3 Red Blood Count 4.01 Hemoglobin 10.5 Hematocrit 32.2 Mean Corpuscular Volume 80.3 Mean Corpuscular Hemoglobin 26.1 Mean Corpuscular Hemoglobin Concent 32.5 Red Cell Distribution Width 17.6 Platelet Count 449 Mean Platelet Volume 6.9 Neutrophils (%) (Auto) 84.3 Lymphocytes (%) (Auto) 3.0 Monocytes (%) (Auto) 9.6 Eosinophils (%) (Auto) 2.4 Basophils (%) (Auto) 0.7 Neutrophils # (Auto) 7.0 Lymphocytes # (Auto) 0.2 Monocytes # (Auto) 0.8 Eosinophils # (Auto) 0.2 Basophils # (Auto) 0.1 CBC Comment DIFF FINAL Differential Comment Blood Urea Nitrogen 15 Creatinine 0.94 Random Glucose 155 Calcium Level 8.5 Sodium Level 132 Potassium Level 3.4 Chloride Level 93 Carbon Dioxide Level 29.8 Anion Gap 9 Estimat Glomerular Filtration Rate 56 Date/Time Source Procedure Growth Status 03/23/17 18:40 Blood Peripheral Aerobic Blood Culture - Preliminary NO GROWTH IN 1 DAY Resulted 03/23/17 18:40 Blood Peripheral Anaerobic Blood Culture - Preliminary NO GROWTH IN 1 DAY Resulted Imaging Last Impressions Tibia/Fibula X-Ray 03/23/17 1834 Signed Impressions: Service Date/Time: Thursday, March 23, 2017 19:14 - CONCLUSION: No acute abnormality is seen. Anand Cook MD Head CT 03/23/171827 Signed Impressions: Service Date/Time: Thursday, March 23, 2017 19:18 - CONCLUSION: 1. No acute abnormality is seen. 2. Atrophy. Anand Cook MD Chest X-Ray 03/23/171827 Signed Impressions: Service Date/Time: Thursday, March 23, 2017 19:05 - CONCLUSION: Cardiomegaly with prominence of the interstitial markings diffusely representing pulmonary venous hypertension or mild edema. Anand Cook MD Lumbar Spine X-Ray 03/23/17 0000 Signed Impressions: Service Date/Time: Thursday, March 23, 2017 19:09 - CONCLUSION: Mild degenerative change. Anand Cook MD Physical Exam HEENT: Normocephalic; atraumatic; no jaundice. CHEST: CTA CARDIAC: RRR ABDOMEN: Soft, nondistended, nontender; no hepatosplenomegaly; bowel sounds are present in all four quadrants. EXTREMITIES: No clubbing, cyanosis, or edema. SKIN: Multiple ecchymotic areas BUE. DISTRIBUTION FIELD TECHNICIAN: No focal deficits; alert and oriented times three. (Jennifer Marc) Assessment and Plan Plan ASSESSMENT: - Anemia with Hemoccult. She was noted to be anemic and transfused 3 weeks ago at [facility]. HH of 8.0/24.9. She was transfused 2 units of PRBC and her HH is now 10.5/32.2. She was also noted to have Hemoccult positive stool. No GI symptoms. Never had egd/colonoscopy. Denies any history of PUD. Pt now refusing GI workup- states she has outpatient appointment for GI and Cardiology and is refusing to have procedure as inpatient. Reviewed records, she does not have any contrasted CTs of the abdomen and pelvis. She did have a CT abdomen and contrast without contrast (09/13/16) at [facility]----> no evidence of hydronephrosis, no renal or ureteral stone or obstruction seen. Appendix is not definitely visualized. No inflammatory changes noted in the region of the cecum. Multiple diverticuli involving the sigmoid and left colon with questionable surrounding inflammatory change, findings should be correlated for possible diverticulitis. Note is made of small amount of free flui in the pelvis. Today's labs pending. Will change Protonix Gtt to po dosing. - Abn. Wt. Loss. 50 lb weight loss in past 3 years. recommend EGD/Colonoscopy - pt refusing. - CHF, per attending. PLAN: - Refusing EGD/Colonoscopy - Heart healthy diet - D/C protonix Gtt - CT scan abdomen and pelvis with IV/PO contrast (anemia/abnormal weight loss/ refusing endoscopic eval) - Monitor labs - Transfuse as necessary - Supportive care - Further recommendations to follow based on results of above - Pt seen and examined by Dr. Brewer and myself and this note is written on his behalf (Jennifer Marc) Physician Comments Seen and examined, plan as above, will check CT results since patient still refusing endoscopic evaluation. Further recommendations to follow. (Lillian Brewer MD) Jennifer Marc Mar 25, 2017 09:19 Lillian Berwer MD Mar 25, 2017 09:55
[2017-03-25 09:51] LABS: AUTOMATED NEUTROPHIL # 6.7 TH/MM3 (1.8-7.7); BASOPHIL # 0.1 TH/MM3 (0-0.2); BASOPHIL % 0.7 % (0.0-2.0); EOSINOPHIL # 0.3 TH/MM3 (0-0.4); HEMATOCRIT 33.6 % (35.0-46.0); HEMO FLAGS DIFF FINAL; LYMPH % 4.2 % (9.0-44.0); LYMPHOCYTE # 0.4 TH/MM3 (1.0-4.8); MEAN CELL VOLUME 81.4 FL (80.0-100.0); MEAN CORPUSCULAR HEMOGLOBIN 26.7 PG (27.0-34.0); MEAN CORPUSCULAR HGB CONC 32.8 % (32.0-36.0); MONO % 11.8 % (0.0-8.0); NEUT % 79.3 % (16.0-70.0); PLATELET COUNT 386 TH/MM3 (150-450); RED BLOOD COUNT 4.13 MIL/MM3 (4.00-5.30); RED CELL DISTRIBUTION WIDTH 17.6 % (11.6-17.2); WHITE BLOOD COUNT 8.4 TH/MM3 (4.0-11.0)
[2017-03-25] MEDS ORDERED: INFLUENZA VIRUS VACCINE (QUADRIVALENT) 0.5 ML SYR IM ONE (10:00)
[2017-03-25] MEDS ORDERED: PNEUMOCOCCAL POLYVALENT INJ 25 MCG/0.5 ML SYR IM ONE (10:00)
[2017-03-25] MEDS: PANTOPRAZOLE SOD 40 MG DELAYED RELEASE TAB PO SCH (10:27)
[2017-03-25] MEDS ORDERED: DIATRIZOATE MEGLUM/DIATRIZOATE SOD 9 ML CUP PO ONE (10:30)
--- NOTE | 2017-03-25 11:05 | HHI.PR ---
Subjective Remarks Patient reports she is feeling much better. She is looking forward to being discharged to [facility] facility today. She does not want any further workup including EGD/colonoscopy. She also states she has an appointment coming up with a [facility] but does not know the name of the [facility]. She denies shortness of breath or abdominal pain. States she had a normal bowel movement yesterday. Objective Vitals Vital Signs Date Time Temp Pulse Resp B/P (MAP) Pulse Ox O2 Delivery O2 Flow Rate FiO2 03/25/17 07:35 98.0 85 16 141/67 (91) 97 03/25/17 04:14 75 03/25/17 03:19 98.0 82 18 146/68 (94) 96 03/25/17 01:11 97.9 88 18 163/81 (108) 100 03/25/17 00:04 77 03/24/17 21:44 97.9 66 16 146/73 (97) 96 03/24/17 20:01 88 03/24/17 16:38 99.0 75 18 139/69 (92) 96 03/24/17 11:31 98.7 75 18 156/77 (103) 100 I/O 03/24/17 03/24/17 03/24/17 03/25/17 03/25/17 03/25/17 07:00 15:00 23:00 07:00 15:00 23:00 Intake Total 360 ml 750 ml 500 ml Balance 360 ml 750 ml 500 ml Intake Oral 300 ml 240 ml 500 ml IV Total 60 ml Packed Cells 500 ml Blood Product IV Normal Saline Flush 10 ml # Voids 2 1 Result Diagram: 03/25/17 0833 03/24/17 1245 Imaging Last Impressions Tibia/Fibula X-Ray 03/23/171833 Signed Impressions: Service Date/Time: Thursday, March 23, 2017 19:14 - CONCLUSION: No acute abnormality is seen. Anand Cook MD Head CT 03/23/171827 Signed Impressions: Service Date/Time: Thursday, March 23, 2017 19:18 - CONCLUSION: 1. No acute abnormality is seen. 2. Atrophy. Anand Cook MD Chest X-Ray 03/23/171827 Signed Impressions: Service Date/Time: Thursday, March 23, 2017 19:05 - CONCLUSION: Cardiomegaly with prominence of the interstitial markings diffusely representing pulmonary venous hypertension or mild edema. Anand Cook MD Lumbar Spine X-Ray 03/23/17 0000 Signed Impressions: Service Date/Time: Thursday, March 23, 2017 19:09 - CONCLUSION: Mild degenerative change. Anand Cook MD Objective Remarks GENERAL: Elderly female in no apparent distress. CARDIOVASCULAR: Normal rate and regular rhythm without murmurs, gallops, or rubs. RESPIRATORY: Good respiratory efforts. Breath sounds equal and clear to auscultation bilaterally. GASTROINTESTINAL: Abdomen soft, non-tender, non-distended. Normal active bowel sounds MUSCULOSKELETAL: Extremities without cyanosis, or edema. NEURO: Alert & Oriented x4 to person, place, time, situation. Moves all ext x4 PSYCH: Appropriate mood and affect. A/P Problem List: (1) GI bleed ICD Code: K92.2 - Gastrointestinal hemorrhage, unspecified Status: Acute (2) CHF (congestive heart failure) ICD Code: I50.9 - Heart failure, unspecified Status: Acute (3) Generalized weakness ICD Code: R53.1 - Weakness Status: Acute (4) Acute systolic (congestive) heart failure ICD Code: I50.21 - Acute systolic (congestive) heart failure Assessment and Plan 89 y/o female with a history of hypothyroid, HTN, anemia presented to the ED with complaints of weakness. Patient states she has been very fatigued, and having increased weakness which is causing her to fall. GI bleed with Symptomatic Anemia: guaiac positive in the ED. Patient with weakness and shortness of breath. - Patient received 2 units of PRBC. She responded well. H&H currently .6 -GI following. Patient refused EGD/colonoscopy. She states she has an appointment with GI outpatient and does not want to do any other invasive test year. -Abdominal CT per GI ordered. Follow-up results. Acute systolic CHF Exacerbation: BNP elevated at 537. CXR images reviewed, shows cardiomegaly with prominence of the interstitial markings diffusely representing pulmonary venous HTN or mild edema. -Lasix 20 mg IV given x1, symptoms resolved after Lasix and blood transfusion -2D echo showed LVEF of 35-40%. - Cardiology consulted for recommendations. - We'll continue metoprolol, add low dose Lasix 20 mg daily for now pending recommendations from cardiology. - Monitor BP Physical deconditioning, suspected related to anemia and CHF -PT following. Patient is now too deconditioned to live by herself. Plan to DC to SNF. She believes she will eventually need [facility]. -Case management following. Hypothyroid, chronic -Continued home medications levothyroxine Hypertension, chronic -Continued home medications metoprolol -Monitor vitals DVT prophylaxis: SCDs, hold chemical prophylaxis due to gi bleed GI prophylaxis: Protonix Discharge Planning Plan to DC to SNF today pending Cardiology recommendations. Problem Qualifiers (1) GI bleed: Qualified Codes: K92.2 - Gastrointestinal hemorrhage, unspecified (2) CHF (congestive heart failure): Qualified Codes: I50.9 - Heart failure, unspecified Pushpa Botello MD Mar 25, 2017 11:05
[2017-03-25] MEDS ORDERED: POTASSIUM CHLORIDE 20 MEQ CONTROLLED RELEASE TAB PO ONE (11:15)
[2017-03-25] MEDS: FUROSEMIDE 20 MG TAB PO SCH (11:49)
[2017-03-25] MEDS ORDERED: IOHEXOL 350 MG/ML 10 ML VIAL (for RAD DIAG) IVCONTRAST ONE (13:06)
--- NOTE | 2017-03-25 14:38 | RADRPT ---
EXAM DATE/TIME: 03/25/2017 12:57 [facility] COMPARISON: No previous studies available for comparison. INDICATIONS : Anemia, weight loss, generalized weakness. IV CONTRAST: 95 cc Omnipaque 350 (iohexol) IV ORAL CONTRAST: No oral contrast ingested. RADIATION DOSE: 9.96 CTDIvol (mGy) MEDICAL HISTORY : Hypertension. SURGICAL HISTORY : Hysterectomy. ENCOUNTER: Initial ACUITY: 1 week PAIN SCALE: 0/10 LOCATION: lower quadrant TECHNIQUE: Volumetric scanning of the abdomen and pelvis was performed. Using automated exposure control and ad justment of the mA and/or kV according to patient size, radiation dose was kept as low as reasonably achievable to obtain optimal diagnostic quality images. DICOM format image data is available electro nically for review and comparison. FINDINGS: LOWER LUNGS: Minimal bibasilar parenchymal changes are evident with trace left pleural effusion. LIVER: Mild ductal dilatation with extensive alex hepatis and pericaval adenopathy suspicious for lymphoma. SPLEEN: Normal size without lesion. PANCREAS: Within normal limits. ADRENAL GLANDS: Within normal limits. RIGHT KIDNEY: Normal in size and shape. There is no mass, stone, or hydronephrosis. LEFT KIDNEY: Normal in size and shape. There is no mass, stone, or hydronephrosis.. VASCULAR: There is no aortic aneurysm. BOWEL/MESENTERY: Extensive retroperitoneal adenopathy without mesenteric adenopathy. Trace ascites is evident. RETROPERITONEUM: Extensive alex hepatis and pericaval adenopathy suspicious for lymphoma. Largest nodes measure upwa rds to 4 cm. PELVIC CONTENTS: Bladder, are unremarkable trace ascites ABDOMINAL WALL: Within normal limits. INGUINAL: There is no lymphadenopathy or hernia. MUSCULOSKELETAL: Within normal limits for patient age. CONCLUSION: Extensive alex hepatis and pericaval adenopathy that would be difficult to address percutaneously gi adonis its location without biopsy through the right lobe of the liver or vena cava. Mundo Fernando MD FACR on March 25, 2017 at 14:33 Board Certified Radiologist. This report was verified electronically.
[2017-03-26] VITALS (8 sets, daily range): BP systolic 115–160; BP diastolic 63–82; PULSE 73–87; RESP 16–20; TEMP 95.7–98.1; O2SAT 96–98
[2017-03-26] MEDS: LEVOTHYROXINE SODIUM 50 MCG TAB PO SCH (05:51)
--- NOTE | 2017-03-26 07:17 | PD.CARD.PN ---
Subjective Subjective Remarks no complaints Objective Medications Current Medications Medications (Trade) Dose Ordered Sig/Jennifer Route Start Time Stop Time Status Last Admin (NS Flush) 2 ml UNSCH PRN IV FLUSH 03/23/17 20:45 (NS Flush) 2 ml BID IV FLUSH 03/23/17 21:00 03/25/17 20:14 (Narcan Inj) 0.4 mg UNSCH PRN IV 03/23/17 20:45 (Synthroid) 50 mcg DAILY@0600 PO 03/24/17 06:00 03/26/17 05:51 (Lopressor) 50 mg BID PO 03/24/17 09:00 03/25/17 20:14 (Protonix) 40 mg DAILY PO 03/25/17 10:00 03/25/17 10:27 (Lasix) 20 mg DAILY PO 03/25/17 11:15 03/25/17 11:49 Vital Signs / I&O Vital Signs Date Time Temp Pulse Resp B/P (MAP) Pulse Ox O2 Delivery O2 Flow Rate FiO2 03/26/17 06:15 96.7 74 18 142/78 (99) 98 03/26/17 03:21 97.9 75 18 135/67 (89) 96 03/26/17 00:16 97.9 77 18 130/65 (86) 97 03/25/17 22:50 80 03/25/17 20:04 97.9 84 18 133/68 (89) 96 03/25/17 15:06 98.6 77 16 146/67 (93) 96 03/25/17 12:39 97.5 80 16 142/71 (94) 98 03/25/17 08:00 75 03/25/17 07:35 98.0 85 16 141/67 (91) 97 I/O 03/25/17 03/25/17 03/25/17 03/26/17 03/26/17 03/26/17 06:59 14:59 22:59 06:59 14:59 22:59 Intake Total 35 ml Balance 35 ml IV Total 35 ml Physical Exam GENERAL: Well developed, well nourished. No acute distress. HEENT: Jugular venous pressure is normal. CHEST: Lungs clear to auscultation bilaterally. Unlabored respiratory effort. CARDIAC: Regular rate and rhythm without S3, S4, or murmur. ABDOMEN: Soft, nontender, no hepatosplenomegaly. Bowel sounds present. EXTREMITIES: No clubbing, cyanosis, or edema. Laboratory Laboratory Tests Test 03/25/17 08:33 White Blood Count 8.4 TH/MM3 Red Blood Count 4.13 MIL/MM3 Hemoglobin 11.0 GM/DL Hematocrit 33.6 % Mean Corpuscular Volume 81.4 FL Mean Corpuscular Hemoglobin 26.7 PG Mean Corpuscular Hemoglobin Concent 32.8 % Red Cell Distribution Width 17.6 % Platelet Count 386 TH/MM3 Mean Platelet Volume 6.9 FL Neutrophils (%) (Auto) 79.3 % Lymphocytes (%) (Auto) 4.2 % Monocytes (%) (Auto) 11.8 % Eosinophils (%) (Auto) 4.0 % Basophils (%) (Auto) 0.7 % Neutrophils # (Auto) 6.7 TH/MM3 Lymphocytes # (Auto) 0.4 TH/MM3 Monocytes # (Auto) 1.0 TH/MM3 Eosinophils # (Auto) 0.3 TH/MM3 Basophils # (Auto) 0.1 TH/MM3 CBC Comment DIFF FINAL Differential Comment Imaging Last 72 hours Impressions Abdomen/Pelvis CT 03/25/17 0000 Signed Impressions: Service Date/Time: Saturday, March 25, 2017 12:57 - CONCLUSION: Extensive alex hepatis and pericaval adenopathy that would be difficult to address percutaneously given its location without biopsy through the right lobe of the liver or vena cava. Mundo Fernando MD FACR Tibia/Fibula X-Ray 03/23/17 1834 Signed Impressions: Service Date/Time: Thursday, March 23, 2017 19:14 - CONCLUSION: No acute abnormality is seen. Anand Cook MD Head CT 03/23/171827 Signed Impressions: Service Date/Time: Thursday, March 23, 2017 19:18 - CONCLUSION: 1. No acute abnormality is seen. 2. Atrophy. Anand Cook MD Chest X-Ray 03/23/171827 Signed Impressions: Service Date/Time: Thursday, March 23, 2017 19:05 - CONCLUSION: Cardiomegaly with prominence of the interstitial markings diffusely representing pulmonary venous hypertension or mild edema. Anand Cook MD Assessment and Plan Problem List: (1) Atrial fibrillation ICD Codes: I48.91 - Unspecified atrial fibrillation Plan: rate controlled; no anticoagulation secondary to GIB (2) Acute systolic (congestive) heart failure ICD Codes: I50.21 - Acute systolic (congestive) heart failure Plan: EF 35-40%, reasonable compensation on BB, add alexis PO diuretics fluid and sodium restrict 1.5 L/ 2000mg a day not a revascularization candidate secondary to comorbid conditions reasonable for d/c today (3) GI bleed ICD Codes: K92.2 - Gastrointestinal hemorrhage, unspecified Status: Acute (4) Generalized weakness ICD Codes: R53.1 - Weakness Status: Acute Problem Qualifiers (1) GI bleed: Qualified Codes: K92.2 - Gastrointestinal hemorrhage, unspecified Socorro Kumar MD Mar 26, 2017 07:17
--- NOTE | 2017-03-26 07:46 | MB ---
cc: STACEY CELAYA MD DATE OF CONSULTATION 03/25/2017 REASON FOR CONSULTATION Atrial fibrillation and cardiomyopathy. HISTORY OF PRESENT ILLNESS Ms. Santos is an 89-year-old female who does have a history of hypertension and dementia. The patient has had multiple recent falls. She presented with generalized weakness and was found to have a GI bleed in addition to CHF on 03/24. The patient is unable to give any history at this point as she is quite confused. PAST MEDICAL HISTORY Significant for: 1. Anemia 2. Hypertension 3. Hypothyroidism OUTPATIENT MEDICATIONS Include: 1. Levoxyl 50 mcg a day 2. Metoprolol 50 mg b.i.d. CURRENT MEDICATIONS Per the record. FAMILY HISTORY, SOCIAL HISTORY AND REVIEW OF SYSTEMS Unobtainable PHYSICAL EXAM In general, she is a well-appearing pleasantly confused lady who is in no apparent distress. NECK: Her neck is free from JVD. LUNGS: The lungs are decreased and clear to auscultation. CARDIOVASCULAR: On cardiovascular examination, she has an irregular rhythm. No runs or gallops are appreciated. There is a 2/6 systolic murmur. ABDOMEN: The abdomen is soft. EXTREMITIES: Free from edema. LABORATORY FINDINGS Significant for a hemoglobin of 11. Her sodium is 132 and creatinine is 0.94. EKG shows atrial fibrillation with controlled ventricular rate. Echocardiogram from 03/24/2017 shows an EF of 55-40%. IMPRESSION Atrial fibrillation - The patient does have an elevated CHADS-VASc score, however, she is not a candidate for anticoagulation secondary to her GI bleeding. The metoprolol has controlled her well. Cardiomyopathy - The patient had an EF of 35-40% here. She did have a recent echo at [facility] which was normal LV function. Her troponin is not elevated here. Etiologies include tachycardiac mediated versus ischemia versus other. At this point, she is not a revascularization candidate and we will continue conservative measures. GI bleeding - This is being managed by GI and the primary team. CHF - The patient does not have any overt CHF today. She has which especially to diuretics. We will use caution so as not to over diurese her particularly in the setting of GI bleed. Stacey Celaya M.D. TITUS/KENY /9:09 PM /7:32 AM
[2017-03-26] MEDS: FUROSEMIDE 20 MG TAB PO SCH (08:46)
[2017-03-26] MEDS: PANTOPRAZOLE SOD 40 MG DELAYED RELEASE TAB PO SCH (08:46)
[2017-03-26] MEDS: METOPROLOL TARTRATE 50 MG TAB PO SCH ×2 (08:46→20:32)
[2017-03-26] MEDS: LISINOPRIL 5 MG TAB PO SCH (08:46)
[2017-03-26] MEDS: SODIUM CHLORIDE 0.9% FLUSH 10 ML FLUSH IV FLUSH SCH ×2 (08:48→20:32)
--- NOTE | 2017-03-26 12:20 | HHI.PR ---
Subjective Remarks Patient reports she is feeling fatigued. Discussed with RN. She had confusion yesterday evening. I had an extensive discussion with her daughter. She does not have a formal diagnosis of dementia as far as she knows but has had some memory issues. No bowel movements per RN. Abdominal CT with extensive alex hepatis and pericaval lymphadenopathy concerning for lymphoma. Objective Vitals Vital Signs Date Time Temp Pulse Resp B/P (MAP) Pulse Ox O2 Delivery O2 Flow Rate FiO2 03/26/17 08:00 95.7 83 20 160/82 (108) 96 03/26/17 06:15 96.7 74 18 142/78 (99) 98 03/26/17 03:21 97.9 75 18 135/67 (89) 96 03/26/17 00:16 97.9 77 18 130/65 (86) 97 03/25/17 22:50 80 03/25/17 20:04 97.9 84 18 133/68 (89) 96 03/25/17 15:06 98.6 77 16 146/67 (93) 96 03/25/17 12:39 97.5 80 16 142/71 (94) 98 I/O 03/25/17 03/25/17 03/25/17 03/26/17 03/26/17 03/26/17 07:00 15:00 23:00 07:00 15:00 23:00 Intake Total 35 ml Balance 35 ml IV Total 35 ml Result Diagram: 03/25/17 0833 03/24/17 1245 Objective Remarks GENERAL: Elderly female in no apparent distress. CARDIOVASCULAR: Normal rate and regular rhythm without murmurs, gallops, or rubs. RESPIRATORY: Good respiratory efforts. Breath sounds equal and clear to auscultation bilaterally. GASTROINTESTINAL: Abdomen soft, non-tender, non-distended. Normal active bowel sounds MUSCULOSKELETAL: Extremities without cyanosis, or edema. NEURO: Alert & Oriented x4 to person, place, time, situation. Moves all ext x4. Occasionally confused about timing of recent events. PSYCH: Appropriate mood and affect. A/P Problem List: (1) GI bleed ICD Code: K92.2 - Gastrointestinal hemorrhage, unspecified Status: Acute (2) CHF (congestive heart failure) ICD Code: I50.9 - Heart failure, unspecified Status: Acute (3) Generalized weakness ICD Code: R53.1 - Weakness Status: Acute (4) Acute systolic (congestive) heart failure ICD Code: I50.21 - Acute systolic (congestive) heart failure Assessment and Plan 89 y/o female with a history of hypothyroid, HTN, anemia presented to the ED with complaints of weakness. Patient states she has been very fatigued, and having increased weakness which is causing her to fall at home. GI bleed with Symptomatic Anemia: guaiac positive in the ED. Patient with weakness and shortness of breath. - Patient received 2 units of PRBC. She responded well. H&H improved. No bowel movement yet today. Repeat H&H today. -GI following. Patient initially refused EGD/colonoscopy. Today agreed to colonoscopy. Will discuss with GI. Given the possible Lymphoma if that can be delayed as daughter is also concerned about putting the patient through this procedure. -Abdominal CT revealed alex hepatitis and pericaval lymphadenopathy concerning for lymphoma. Extensive alex hepatitis and pericaval lymphadenopathy concerning for lymphoma: - Consult Oncology. Per IR, very difficult to get biopsy percutaneously without going through the liver or vena cava. - Extensive discussion with the patient's daughter. They would like to know about prognosis. They are very concerned about putting the patient through surgery or invasive procedures - Palliative care following. I DW with them today. Patient will have daughter assist with medical decisions. Acute systolic CHF Exacerbation: BNP elevated at 537. CXR images reviewed, shows cardiomegaly with prominence of the interstitial markings diffusely representing pulmonary venous HTN or mild edema. -Lasix 20 mg IV given x1, symptoms resolved after Lasix and blood transfusion -2D echo showed LVEF of 35-40%. - Cardiology following. Continue medical management. Patient is a poor candidate for revascularization. From my conversation with her daughter. She refused stress test last year and did not want any invasive procedures. - continue metoprolol, low dose Lasix and JOHN inhibitor. - Monitor BP Possible early dementia: Patient appeared to still have capacity to designate a healthcare surrogate. She does get more confused in the evening. Appreciate palliative care following. She has agreed to have her daughter assist in medical decision making. Physical deconditioning, suspected related to anemia and CHF -PT following. Patient is now too deconditioned to live by herself. Patient will eventually need SNF. -Case management following. Hypothyroid, chronic -Continued home medications levothyroxine Hypertension, chronic -Continued home medications metoprolol -Monitor vitals DVT prophylaxis: SCDs, hold chemical prophylaxis due to gi bleed GI prophylaxis: Protonix Discharge Planning Plan to DC to SNF. Problem Qualifiers (1) GI bleed: Qualified Codes: K92.2 - Gastrointestinal hemorrhage, unspecified (2) CHF (congestive heart failure): Qualified Codes: I50.9 - Heart failure, unspecified Pushpa Botello MD Mar 26, 2017 12:20
[2017-03-26 12:29] LABS: HEMATOCRIT 30.9 % (35.0-46.0); MEAN CELL VOLUME 80.7 FL (80.0-100.0); MEAN CORPUSCULAR HEMOGLOBIN 27.1 PG (27.0-34.0); MEAN CORPUSCULAR HGB CONC 33.5 % (32.0-36.0); PLATELET COUNT 383 TH/MM3 (150-450); RED BLOOD COUNT 3.83 MIL/MM3 (4.00-5.30); RED CELL DISTRIBUTION WIDTH 18.2 % (11.6-17.2); REVIEW FLAG FINAL; WHITE BLOOD COUNT 9.4 TH/MM3 (4.0-11.0)
[2017-03-26 12:53] LABS: BICARBONATE 27.5 MEQ/L (21.0-32.0); POTASSIUM 4.1 MEQ/L (3.5-5.1)
--- NOTE | 2017-03-26 13:26 | PD.CONS ---
Consult Service Palliative Care Consult Requested By MD Ayan. Primary Care Physician Unknown Reason for Consultation a. To assist with evaluation and management of symptoms including: Debility. b. To assist medical decision maker(s) with: better understanding of current medical conditions; weighing benefits/burdens of medical treatment options; making medical treatment decisions. . HPI History of Present Illness Mrs. Santos dates an 89-year-old female with a medical history of hypertension, hypothyroidism and anemia percentage to the emergency room on 03/23/17 for evaluation of generalized weakness/fatigue. As per patient, she has been reporting worsening weakness/debility for the past few days to weeks. Frequent falls at home. Reports of recent treatment at [facility] secondary to anemia where she received blood transfusion. Laboratory workup and admission Hgb 8.0, repeat Hgb 7.2. Patient received 2 units of PRBC. X- ray tibia/fibula and lumbar spine negative for acute process. Head CT negative for acute process. UA negative for nitrates or leukocytes. Patient was admitted for further management. GI, Dr. Brewer consulted on 03/24/17. GI workup to include EGD/colonoscopy discussed with patient. Cardiology, Dr. Kumar consulted on 03/25/17 for evaluation of atrial fibrillation and cardiomyopathy. Patient was found confused during cardiology consultation. Patient not a candidate for anticoagulation secondary to her GI bleed. Echocardiogram revealing EF of 35-40 %, poor candidate for revascularization. On 03/25/17, patient declined GI workup -stating that she will follow up with GI as outpatient. Abdomen/pelvis CT revealing extensive alex hepatis and pericaval lymphadenopathy -concerning of lymphoma. Palliative care has been consulted for further clarifications of goals of care. Patient seen in her room. She was resting in bed in no acute distress. Alert and oriented x self, place and situation. Forgetful. Patient endorsing generalized weakness, reports that appetite has improved since admitted to the hospital. Denies shortness of breath, nausea/vomiting or abdominal discomfort. Scatter multiple areas of ecchymoses and bruises to all 4 extremities, patient with history of recent frequent falls while at home. Discussed events leading to these hospitalization, clinical course and current medical management. Patient verbalized considering GI bleed workup at this time. She would like to discuss further with her daughter and GI. Telephone conversation with patient's daughter Eve Santos who resides in [place]. Medical update provided. Shared concerns of patient's progressive physical decline an acute events to include GI bleed and results of abdomen/pelvis CT results concerning for lymphadenopathy. Discussed that oncology consultation is is still pending. However, even if malignancy is confirmed, share concerns of patient's eligibility for systemic treatment given her current debilitated condition. Daughter receptive to f/u goals of care discussion with palliative care. Case discussed with Dr. Botello and bedside RN. . Function/Cognitive Trajectory Patient residing independently prior to this hospitalization. Reports having a nurses aid visiting her on a daily basis. Ambulating with walker/cane. Reporting multiple recent frequent falls. Patient with intermittent periods of confusion/sundowning. As per daughter, no formal diagnosis of dementia. . Review of Systems Constitutional: COMPLAINS OF: Fatigue, Weight loss, Change in appetite, Generalized weakness Eyes: DENIES: Eye pain Ears, nose, mouth, throat: COMPLAINS OF: Hearing loss, DENIES: Hoarseness, Running Nose Respiratory: DENIES: Apneas, Sputum production, Shortness of breath Cardiovascular: DENIES: Dyspnea on Exertion, Lower Extremity Edema Gastrointestinal: DENIES: Diarrhea, Nausea, Vomiting, Difficulty Swallowing Genitourinary: DENIES: Urinary incontinence Musculoskeletal: DENIES: Back pain, Neck pain Integumentary: DENIES: Pruritus, Rash Hematologic/Lymphatics: COMPLAINS OF: Bruising Immunologic/Allergic: DENIES: Eczema Neurologic: COMPLAINS OF: Poor Balance, DENIES: Localized weakness, Tremor Psychiatric: COMPLAINS OF: Confusion, DENIES: Hallucinations, Agitation Past Family Social History Coded Allergies: No Known Allergies (Verified , 03/23/17) Past Medical History Hypothyroid HTN Anemia . Past Surgical History C Section . Reported Medications Levoxyl (Levothyroxine Sodium) 50 Mcg Tab 50 Mcg PO DAILY Metoprolol Tartrate 50 Mg Tab 50 Mg PO BID . Current Medications Medications (Trade) Dose Ordered Sig/Jennifer Route Start Time Stop Time Status Last Admin (NS Flush) 2 ml UNSCH PRN IV FLUSH 03/23/17 20:45 (NS Flush) 2 ml BID IV FLUSH 03/23/17 21:00 03/26/17 08:48 (Narcan Inj) 0.4 mg UNSCH PRN IV 03/23/17 20:45 (Synthroid) 50 mcg DAILY@0600 PO 03/24/17 06:00 03/26/17 05:51 (Lopressor) 50 mg BID PO 03/24/17 09:00 03/26/17 08:46 (Protonix) 40 mg DAILY PO 03/25/17 10:00 03/26/17 08:46 (Lasix) 20 mg DAILY PO 03/25/17 11:15 03/26/17 08:46 (Prinivil) 5 mg DAILY PO 03/26/17 09:00 03/26/17 08:46 Family History Mom at age 95 after a hip fx. patient has 2 children who are alive and well. . Substance Use Tobacco: None reported. Alcohol: None reported. Prescription med abuse: None reported. Illicits: None reported. . Psychosocial History Patient originally from the [place]. Moved to [place] 59 years ago. In [place] for the past 37 years. Patient is , her 4 years ago. Patient has one daughter who lives in [place] and one son who lives in [facility]. 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 . Spiritual/Cultural Factors No gnosticist affiliations reported. . Health Care Surrogate(s): In the absence of AD and as per [place] statute, healthcare proxy decision making falls to the majority of patient's children for which she has 2. Documented care wishes: Advance directives reported as completed many years ago. Patient nor daughter have any copies. Patient interested in completion AD while inpatient. Today's verbally stated goals: Continue current medical management. Patient to consider GI workup. . Family/friends goals: Patient's daughter supportive of patient's wishes. . Ethical and Legal Issues Patient participating in medical decision-making, periods of confusion. Palliative care recommends shared decision-making with daughter. . Physical Exam Vital Signs Date Time Temp Pulse Resp B/P (MAP) Pulse Ox O2 Delivery O2 Flow Rate FiO2 03/26/17 12:00 97.9 78 20 115/63 (80) 97 03/26/17 08:00 95.7 83 20 160/82 (108) 96 03/26/17 06:15 96.7 74 18 142/78 (99) 98 03/26/17 03:21 97.9 75 18 135/67 (89) 96 03/26/17 00:16 97.9 77 18 130/65 (86) 97 03/25/17 22:50 80 03/25/17 20:04 97.9 84 18 133/68 (89) 96 03/25/17 15:06 98.6 77 16 146/67 (93) 96 03/25/17 12:39 97.5 80 16 142/71 (94) 98 Exam CONSTITUTIONAL/GENERAL: This is a frail, elderly female resting in bed in no acute distress. TUBES/LINES/DRAINS: PIV. SKIN: No jaundice, rashes. Large areas of ecchymoses on all extremities. Scattered scabs on left upper arm and right lower leg. Skin temperature appropriate. Not diaphoretic. HEAD: Atraumatic. Normocephalic. Bilateral temporal wasting noted. EYES: Pupils equal and round and reactive. Extraocular motions intact. No scleral icterus. No injection or drainage. ENT: Hearing grossly normal. Nose without bleeding or purulent drainage. Moist oral mucosa. NECK: Trachea midline. Supple, nontender. CARDIOVASCULAR: Irregular rate and rhythm. No JVD. Peripheral pulses symmetric. RESPIRATORY/CHEST: Symmetric, unlabored respirations. Clear to auscultation. Breath sounds equal bilaterally. No wheezes, rales, or rhonchi. GASTROINTESTINAL: Abdomen soft, non-tender, nondistended. No guarding. Bowel sounds present. GENITOURINARY: Without palpable bladder distension. MUSCULOSKELETAL: Extremities without clubbing, cyanosis, or edema. Muscular atrophy to all 4 extremities. NEUROLOGICAL: Awake and alert x self, place and situation. Confused at times. Moves all extremities. Follows commands. PSYCHIATRIC: No obvious anxiety/depression. Pleasant and cooperative. . Diagnostic Tests Laboratory Laboratory Tests Test 03/23/17 18:15 03/23/17 18:45 03/24/17 00:22 03/24/17 12:45 White Blood Count 9.0 TH/MM3 (4.0-11.0) 8.3 TH/MM3 (4.0-11.0) Red Blood Count 3.17 MIL/MM3 (4.00-5.30) 4.01 MIL/MM3 (4.00-5.30) Hemoglobin 8.0 GM/DL (11.6-15.3) 7.2 GM/DL (11.6-15.3) 10.5 GM/DL (11.6-15.3) Hematocrit 24.9 % (35.0-46.0) 23.2 % (35.0-46.0) 32.2 % (35.0-46.0) Mean Corpuscular Volume 78.4 FL (80.0-100.0) 80.3 FL (80.0-100.0) Mean Corpuscular Hemoglobin 25.1 PG (27.0-34.0) 26.1 PG (27.0-34.0) Mean Corpuscular Hemoglobin Concent 32.0 % (32.0-36.0) 32.5 % (32.0-36.0) Red Cell Distribution Width 19.1 % (11.6-17.2) 17.6 % (11.6-17.2) Platelet Count 434 TH/MM3 (150-450) 449 TH/MM3 (150-450) Mean Platelet Volume 6.9 FL (7.0-11.0) 6.9 FL (7.0-11.0) Neutrophils (%) (Auto) 79.1 % (16.0-70.0) 84.3 % (16.0-70.0) Lymphocytes (%) (Auto) 6.4 % (9.0-44.0) 3.0 % (9.0-44.0) Monocytes (%) (Auto) 11.0 % (0.0-8.0) 9.6 % (0.0-8.0) Eosinophils (%) (Auto) 2.6 % (0.0-4.0) 2.4 % (0.0-4.0) Basophils (%) (Auto) 0.9 % (0.0-2.0) 0.7 % (0.0-2.0) Neutrophils # (Auto) 7.1 TH/MM3 (1.8-7.7) 7.0 TH/MM3 (1.8-7.7) Lymphocytes # (Auto) 0.6 TH/MM3 (1.0-4.8) 0.2 TH/MM3 (1.0-4.8) Monocytes # (Auto) 1.0 TH/MM3 (0-0.9) 0.8 TH/MM3 (0-0.9) Eosinophils # (Auto) 0.2 TH/MM3 (0-0.4) 0.2 TH/MM3 (0-0.4) Basophils # (Auto) 0.1 TH/MM3 (0-0.2) 0.1 TH/MM3 (0-0.2) CBC Comment DIFF FINAL DIFF FINAL Differential Comment Prothrombin Time 12.7 SEC (9.8-11.6) Prothromb Time International Ratio 1.1 RATIO Activated Partial Thromboplast Time 34.1 SEC (24.3-30.1) Blood Urea Nitrogen 13 MG/DL (7-18) 15 MG/DL (7-18) Creatinine 0.91 MG/DL (0.50-1.00) 0.94 MG/DL (0.50-1.00) Random Glucose 96 MG/DL (74-106) 155 MG/DL (74-106) Total Protein 6.6 GM/DL (6.4-8.2) Albumin 1.4 GM/DL (3.4-5.0) Calcium Level 7.7 MG/DL (8.5-10.1) 8.5 MG/DL (8.5-10.1) Magnesium Level 2.0 MG/DL (1.5-2.5) Alkaline Phosphatase 357 U/L (45-117) Aspartate Amino Transf (AST/SGOT) 30 U/L (15-37) Alanine Aminotransferase (ALT/SGPT) 12 U/L (10-53) Total Bilirubin 0.7 MG/DL (0.2-1.0) Sodium Level 131 MEQ/L (136-145) 132 MEQ/L (136-145) Potassium Level 3.8 MEQ/L (3.5-5.1) 3.4 MEQ/L (3.5-5.1) Chloride Level 94 MEQ/L (98-107) 93 MEQ/L (98-107) Carbon Dioxide Level 27.2 MEQ/L (21.0-32.0) 29.8 MEQ/L (21.0-32.0) Anion Gap 10 MEQ/L (5-15) 9 MEQ/L (5-15) Estimat Glomerular Filtration Rate 58 ML/MIN (>89) 56 ML/MIN (>89) Total Creatine Kinase 8 U/L (26-192) Troponin I LESS THAN 0.02 NG/ML B-Type Natriuretic Peptide 537 PG/ML (0-100) Thyroid Stimulating Hormone 3rd Gen 1.320 uIU/ML (0.358-3.740) Urine Color YELLOW (YELLW/STRAW) Urine Turbidity CLEAR (CLEAR) Urine pH 7.0 (5.0-8.5) Urine Specific [place] 1.014 (1.002-1.035) Urine Protein 30 mg/dL (NEG-TRACE) Urine Glucose (UA) NEG mg/dL (NEG) Urine Ketones NEG mg/dL (NEG) Urine Occult Blood NEG (NEG) Urine Nitrite NEG (NEG) Urine Bilirubin NEG (NEG) Urine Urobilinogen GREATER THAN 12.0 MG/DL Urine Leukocyte Esterase NEG (NEG) Urine RBC 1 /hpf (0-3) Urine WBC 1 /hpf (0-5) Urine Squamous Epithelial Cells 1 /hpf (0-5) Microscopic Urinalysis Comment CULT NOT INDICATED Test 03/25/17 08:33 03/26/17 12:11 White Blood Count 8.4 TH/MM3 (4.0-11.0) 9.4 TH/MM3 (4.0-11.0) Red Blood Count 4.13 MIL/MM3 (4.00-5.30) 3.83 MIL/MM3 (4.00-5.30) Hemoglobin 11.0 GM/DL (11.6-15.3) 10.4 GM/DL (11.6-15.3) Hematocrit 33.6 % (35.0-46.0) 30.9 % (35.0-46.0) Mean Corpuscular Volume 81.4 FL (80.0-100.0) 80.7 FL (80.0-100.0) Mean Corpuscular Hemoglobin 26.7 PG (27.0-34.0) 27.1 PG (27.0-34.0) Mean Corpuscular Hemoglobin Concent 32.8 % (32.0-36.0) 33.5 % (32.0-36.0) Red Cell Distribution Width 17.6 % (11.6-17.2) 18.2 % (11.6-17.2) Platelet Count 386 TH/MM3 (150-450) 383 TH/MM3 (150-450) Mean Platelet Volume 6.9 FL (7.0-11.0) 6.8 FL (7.0-11.0) Neutrophils (%) (Auto) 79.3 % (16.0-70.0) Lymphocytes (%) (Auto) 4.2 % (9.0-44.0) Monocytes (%) (Auto) 11.8 % (0.0-8.0) Eosinophils (%) (Auto) 4.0 % (0.0-4.0) Basophils (%) (Auto) 0.7 % (0.0-2.0) Neutrophils # (Auto) 6.7 TH/MM3 (1.8-7.7) Lymphocytes # (Auto) 0.4 TH/MM3 (1.0-4.8) Monocytes # (Auto) 1.0 TH/MM3 (0-0.9) Eosinophils # (Auto) 0.3 TH/MM3 (0-0.4) Basophils # (Auto) 0.1 TH/MM3 (0-0.2) CBC Comment DIFF FINAL Differential Comment Result Diagram: 03/26/17 1211 03/24/17 1245 Microbiology Microbiology Date/Time Source Procedure Growth Status 03/23/17 18:40 Blood Peripheral Aerobic Blood Culture - Preliminary NO GROWTH IN 3 DAYS Resulted 03/23/17 18:40 Blood Peripheral Anaerobic Blood Culture - Preliminary NO GROWTH IN 3 DAYS Resulted 03/23/17 18:40 Blood Peripheral Aerobic Blood Culture - Preliminary NO GROWTH IN 3 DAYS Resulted 03/23/17 18:40 Blood Peripheral Anaerobic Blood Culture - Preliminary NO GROWTH IN 3 DAYS Resulted Imaging Last Impressions Abdomen/Pelvis CT 03/25/17 0000 Signed Impressions: Service Date/Time: Saturday, March 25, 2017 12:57 - CONCLUSION: Extensive alex hepatis and pericaval adenopathy that would be difficult to address percutaneously given its location without biopsy through the right lobe of the liver or vena cava. Mundo Fernando MD FACR Tibia/Fibula X-Ray 03/23/17 1834 Signed Impressions: Service Date/Time: Thursday, March 23, 2017 19:14 - CONCLUSION: No acute abnormality is seen. Anand Cook MD Head CT 03/23/171827 Signed Impressions: Service Date/Time: Thursday, March 23, 2017 19:18 - CONCLUSION: 1. No acute abnormality is seen. 2. Atrophy. Anand Cook MD Chest X-Ray 03/23/171827 Signed Impressions: Service Date/Time: Thursday, March 23, 2017 19:05 - CONCLUSION: Cardiomegaly with prominence of the interstitial markings diffusely representing pulmonary venous hypertension or mild edema. Anand Cook MD Lumbar Spine X-Ray 03/23/17 0000 Signed Impressions: Service Date/Time: Thursday, March 23, 2017 19:09 - CONCLUSION: Mild degenerative change. Anand Cook MD Patient/Family Conference Present at Family Conference: Patient and daughter Eve. Family Conference Time (mins): 36 Family Conference Location: Bedside, Telephone Issues Discussed: * Palliative care role, purpose, approach * Additional medical, psychosocial, and spiritual history * Patients general health, functional status, and cognitive changes in the months leading up to the current hospitalization * Patient/family understanding of the current medical problems -GI bleed, lymphadenopathy concerning of malignancy, profound physical deconditioning. * Patient/family understanding of prognosis -guarded * Patients goals of care as best understood from advance directives and/or conversations and/or values * Current medical treatment options and benefits/burdens of those options * Questions answered to the best of my ability * Palliative care contact information provided . Assessment and Plan Disease Oriented Problem List: (1) GI bleed (2) CHF (congestive heart failure) (3) Atrial fibrillation (4) Confusion (5) Frequent falls (6) Physical deconditioning Symptom Scale: (1) Debility 0-10 Scale: Unable to quantify Comment: Progressive. Worsened during the past 3 months. . Pertinent Non-Medical Issues Psychosocial: Patient originally from the [place]. Moved to [place] 59 years ago. In [place] for the past 37 years. Patient is , her 4 years ago. Patient has one daughter who lives in [place] and one son who lives in [facility]. 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 Spiritual: Legal: Advance directives reported as completed many years ago. Patient nor daughter have any copies. Patient interested in completion AD while inpatient. Ethical issues impacting care: Patient participating in medical decision-making , periods of confusion. Palliative care recommends shared decision-making with daughter. . Important Contacts Daughter Eve Santos [phone] Son Jameson Santos & . . Prognosis Mrs. Santos dates an 89-year-old female with a medical history of hypertension, hypothyroidism and anemia percentage to the emergency room on 03/23/17 for evaluation of generalized weakness/fatigue. As per patient, she has been reporting worsening weakness/debility for the past few days to weeks. Frequent falls at home. Reports of recent treatment at [facility] secondary to anemia where she received blood transfusion. Abdomen/pelvis CT revealing lymphadenopathy, concerns of lymphoma. Patient very high risk for further complications, continue decline and given progressive physical decline, chronic comorbidities and acute events. . Code Status: Full Code Plan * CODE STATUS: Full code. Risks, benefits and limitations of CPR, intubation and mechanical ventilation had been discussed at length with patient. Code status will be readdressed with patient and daughter. * HEALTHCARE DECISION-MAKING: Patient participating in medical decision-making, periods of confusion. Concerns regarding patient's full understanding of her clinical condition and her ability to weight the risks and burdens of treatment options -questionable dementia. In the absence of AD and as per [place] statute , healthcare proxy decision making falls to the majority of patient's children for which she has 2. Patient verbalized wishing to designate her daughter Kedar Santos as HCS, referred completion of designation form to tomorrow. Palliative care recommends shared decision-making with daughter. * GOALS OF CARE: Patient verbalized wishing to continue current medical management. Patient to consider workup for GI bleed, she wishes to further discuss with her daughter. Pending oncology consult, concerns of malignancy given CT abd/pelvis results revealing lymphadenopathy. Shared concerns with daughter regarding patient's progressive physical decline and acute illness. Patient and daughter receptive to continue goals of care discussion. * SYMPTOMS: = Debility, progressive. Worsen for the past 3 months. Frequent recent falls at home. Patient verbalized not being able to return to independent living given generalized decline. SNF vs [facility] upon discharge. PT following. * Case discussed with Dr. Botello and bedside RN. * Palliative care contact information has been provided to patient and daughter. * Palliative care will continue to follow-up for further clarifications of goals of care as pt's clinical course continues to evolve. . Time Spent Total Floor Time (mins): 66 (Total time to include review and summarization of medical records, physical exam, bedside goals of care conversation with patient , telephone conversation with patient's daughter and case discussion with Dr. Botello and bedside RN.) >50% Counseling/Coord of Care: Yes Thank you for the opportunity to participate in the care of Ms. Santos. Attestation To help prompt me to consider important information that might be impacting today's encounter and assessment, information from prior notes written by myself or my colleagues may have been "brought forward" into today's note. My signature on this note, however, is an attestation that I personally performed the exam, history, and/or decision-making noted today, and, unless otherwise indicated, the interactions with patient, family, and staff as well as the review of records all occurred today. I also attest that the listed assessment and stated plan reflect my best clinical judgment today based on the combination of historical information, prior notes, and today's exam/ interactions. When time spent is documented, it refers only to time spent today by the signer, or if indicated, combined time spent today by collaborating physician/nurse practitioner. . Merle Tamayo Mar 26, 2017 13:26
[2017-03-26 14:37] LABS: TRANSFERRIN IRON PROFILE 102 MG/DL (200-360)
[2017-03-26 14:52] LABS: FERRITIN 2138 NG/ML (8-252)
--- NOTE | 2017-03-26 17:00 | HHI.GIFU ---
Subjective Remarks Pt resting in bed. No obvious bleeding. Pt considering endoscopy. (Shirley Ruelas) Objective Vitals I&O Vital Signs Date Time Temp Pulse Resp B/P (MAP) Pulse Ox O2 Delivery O2 Flow Rate FiO2 03/26/17 12:00 97.9 78 20 115/63 (80) 97 03/26/17 08:00 95.7 83 20 160/82 (108) 96 03/26/17 06:15 96.7 74 18 142/78 (99) 98 03/26/17 03:21 97.9 75 18 135/67 (89) 96 03/26/17 00:16 97.9 77 18 130/65 (86) 97 03/25/17 22:50 80 03/25/17 20:04 97.9 84 18 133/68 (89) 96 I/O 03/25/17 03/25/17 03/25/17 03/26/17 03/26/17 03/26/17 07:00 15:00 23:00 07:00 15:00 23:00 Intake Total 35 ml Balance 35 ml IV Total 35 ml Laboratory Laboratory Tests Test 03/26/17 12:11 White Blood Count 9.4 Red Blood Count 3.83 Hemoglobin 10.4 Hematocrit 30.9 Mean Corpuscular Volume 80.7 Mean Corpuscular Hemoglobin 27.1 Mean Corpuscular Hemoglobin Concent 33.5 Red Cell Distribution Width 18.2 Platelet Count 383 Mean Platelet Volume 6.8 Blood Urea Nitrogen 21 Creatinine 1.08 Random Glucose 118 Calcium Level 8.6 Sodium Level 128 Potassium Level 4.1 Chloride Level 92 Carbon Dioxide Level 27.5 Anion Gap 9 Estimat Glomerular Filtration Rate 48 Iron Level 26 Total Iron Binding Capacity 143 Percent Iron Saturation 18.2 Ferritin 2138 Date/Time Source Procedure Growth Status 03/23/17 18:40 Blood Peripheral Aerobic Blood Culture - Preliminary NO GROWTH IN 3 DAYS Resulted 03/23/17 18:40 Blood Peripheral Anaerobic Blood Culture - Preliminary NO GROWTH IN 3 DAYS Resulted Physical Exam HEENT: Normocephalic; atraumatic; no jaundice. CHEST: CTA CARDIAC: RRR ABDOMEN: Soft, nondistended, nontender; no hepatosplenomegaly; bowel sounds are present in all four quadrants. EXTREMITIES: No clubbing, cyanosis, or edema. SKIN: Multiple ecchymotic areas BUE. FINANCIAL MARKET DEALER: No focal deficits; alert and oriented times three. (Shirley Ruelas) Assessment and Plan Plan ASSESSMENT: - Anemia with Hemoccult. She was noted to be anemic and transfused 3 weeks ago at [facility]. HH of 8.0/24.9. She was transfused 2 units of PRBC and her Hgb 10.4 today. She was also noted to have Hemoccult positive stool. No GI symptoms. Never had egd/colonoscopy. Denies any history of PUD. Pt now refusing GI workup- states she has outpatient appointment for GI and Cardiology and is refusing to have procedure as inpatient. Reviewed records, she does not have any contrasted CTs of the abdomen and pelvis. She did have a CT abdomen and contrast without contrast (09/13/16) at [facility]----> no evidence of hydronephrosis, no renal or ureteral stone or obstruction seen. Appendix is not definitely visualized. No inflammatory changes noted in the region of the cecum. Multiple diverticuli involving the sigmoid and left colon with questionable surrounding inflammatory change, findings should be correlated for possible diverticulitis. Note is made of small amount of free flui in the pelvis. Will change Protonix Gtt to po dosing. CT showed alex hepatis and pericaval adenopathy suspicious for lymphoma. oncology consult pending Pt specifically requested that I not talk to her daughter. - Abn. Wt. Loss. 50 lb weight loss in past 3 years. recommend EGD/Colonoscopy - pt refusing. CT as above - CHF, per attending. PLAN: - await oncology consult - pt now considering EGD/colonoscopy - obtain cardiac clearance for endoscopy - Heart healthy diet - Monitor labs - Transfuse as necessary - Supportive care - Further recommendations to follow based on results of above - Pt seen and examined by Dr. Brewer and myself and this note is written on his behalf (Shirley Ruelas) Physician Comments As above assessment and plan, will schedule EGD/Colonoscopy once cleared by pipeline superintendent division. (Lillian Brewer MD) Shirley Ruelas Mar 26, 2017 17:00 Lillian Brewer MD Mar 26, 2017 19:03
--- NOTE | 2017-03-26 18:04 | MB ---
cc: MIN BOTELLO MD, RUBY ANNE E. M.D. DATE OF CONSULTATION 03/26/17 [address] Min Botello CHIEF COMPLAINT Dr. Botello requests a consultation for Mrs. Santos regarding abdominal adenopathy. HISTORY OF PRESENT ILLNESS Mrs. Santos is an 89-year-old woman originally from [facility]. She is pleasant, able to give history, talks very slowly. She apparently lives in the [place], [place] area and [place] during the summer and comes down to her home in the [place] area in the winter time. She says lives alone. She complained of some pain and diarrhea. She had dark stools. She had significant anemia. Hemoglobin of 8.0. Previous hemoglobin is 14.3 from 2005. She was transfused two units of packed red cells and achieved a hemoglobin of 11.0 and has trended down to 10.4 at the time of the consultation. Her MCV was low suggestive of iron deficiency. Her platelet count is normal. PT/PTT appears to be mildly prolonged. Her renal function is mildly decreased with a GFR around 50%. She was seen by gastroenterology and at one point had declined workup. She reports however that she has [facility] as a primary physician. She does not have a facility technician in the community. I suspect she misunderstood the nature of her refusal. Part of the workup includes CT scan of the abdomen that showed extensive alex hepatis and pericaval adenopathy suspicious for lymphoma. The largest node measures 4 cm. There was extensive retroperitoneal adenopathy but no mesenteric adenopathy. There is slight ascites. None of these lymph nodes were amenable to percutaneous biopsy safely. We do not have a CT of the chest. No clinical adenopathy evident. Mrs. Santos is unaware of any problems. Hematology/Oncology is consulted for the adenopathy and concern for underlying lymphoma. PAST MEDICAL HISTORY 1. New anemia secondary to GI bleed. 2. Heme positive stool. 3. Mild renal insufficiency. 4. Hypothyroidism. 5. Hypertension. PAST SURGICAL HISTORY Hysterectomy. SOCIAL HISTORY She denies any tobacco, alcohol or illicit drug use. She lives part of the year in the [facility] and part of the year with her son in [place], [place] and daughter in [place]. FAMILY HISTORY Father was a coal equipment operator. Denies any cancer or blood disorder in the family. ALLERGIES NO KNOWN DRUG ALLERGIES MEDICATIONS Current, 1. Lisinopril 2. Lasix. 3. Protonix. 4. Lopressor 5. Synthroid ASSESSMENT/PLAN Mrs. Santos is an 89-year-old woman with probably history of hypertension, hypothyroidism diagnosed with symptomatic anemia associated with heme positive stools concerning for GI bleed. I had a lengthy discussion with Mrs. Santos workup for her GI bleeding. I explained that upper endoscopy and colonoscopy are intended to identify the source of bleed and possibly correct it. She is eager to proceed with procedure with the chance of correcting the underlying problem that causes her to have anemia. Although she tolerated transfusion of red blood cells, we would like to avoid additional transfusion by correcting the underlying problem. We discussed the adenopathy. We discussed proceeding with endoscopic evaluation to see if there is a primary in the upper GI tract that may account for the adenopathy seen. There is no other adenopathy identified. CT scan of the chest will review if further adenopathy could be identified. A small amount of effusion, we will see if there is any lesion in the left lung. I defer from biopsy of any of these lesions depending on the CT of the chest. Further recommendations and workup as planned. I discussed in general terms with Ms. Santos workup and diagnosis being contemplated. She would be better off to be near her family. To this end, she is very interested in being discharged from the hospital not directly home but to rehab. She is quite fearful of being by herself in her home in her weakened state. We will consult with telephonic nurse case manager to see if she could be transferred to a rehab facility to improve her performance status prior to going home independently and maybe changing plans for her to move back with her family up [place]. Her questions were answered to her satisfaction. MD TOBI Burkett/ /1:45 PM /5:44 PM
--- NOTE | 2017-03-26 18:30 | RADRPT ---
EXAM DATE/TIME: 03/26/2017 17:06 [facility] COMPARISON: CT ABDOMEN & PELVIS W CONTRAST, March 25, 2017, 12:57. INDICATIONS : Patient with anemia, weight loss and weakness with extensive periportal adenopathy seen on abdomen CT . Evaluate left pleural effusion seen on abdomen CT. RADIATION DOSE: 3.30 CTDIvol (mGy) MEDICAL HISTORY : Hypertension. SURGICAL HISTORY : Hysterectomy. ENCOUNTER: Initial ACUITY: 1 day PAIN SCALE: 0/10 LOCATION: chest TECHNIQUE: Volumetric scanning of the chest was performed. Using automated exposure control and adjustment of t he mA and/or kV according to patient size, radiation dose was kept as low as reasonably achievable to obtain optimal diagnostic quality images. DICOM format image data is available electronically for r eview and comparison. Follow-up recommendations for detected pulmonary nodules are based at a minimum on nodule size and pa tient risk factors according to Fleischner Society Guidelines. FINDINGS: LUNGS: There is no consolidation or pneumothorax. No concerning pulmonary nodule is visualized. PLEURAE: There is a small left pleural effusion. MEDIASTINUM: The heart and great vessels demonstrate no acute abnormality. There is no mediastinal or hilar lymph adenopathy. The heart size is moderately enlarged. Atherosclerotic changes are noted in the aorta. Th ere are coronary artery calcifications. AXILLAE: Within normal limits. No lymphadenopathy. MUSCULOSKELETAL: Within normal limits for patient age. MISCELLANEOUS: The visualized upper abdominal organs demonstrate no acute abnormality. CONCLUSION: 1. Small left pleural effusion. 2. Moderate cardiomegaly with no perihilar edema. 3. No evidence of mediastinal or hilar adenopathy. Jonathan Whittaker MD on March 26, 2017 at 18:25 Board Certified Radiologist. This report was verified electronically.
[2017-03-27] VITALS (7 sets, daily range): BP systolic 95–138; BP diastolic 60–77; PULSE 73–85; RESP 16–18; TEMP 96.9–98.3; O2SAT 96–99
[2017-03-27] MEDS: LEVOTHYROXINE SODIUM 50 MCG TAB PO SCH (05:37)
[2017-03-27 07:25] LABS: AUTOMATED NEUTROPHIL # 6.4 TH/MM3 (1.8-7.7); BASOPHIL # 0.1 TH/MM3 (0-0.2); BASOPHIL % 1.2 % (0.0-2.0); EOSINOPHIL # 0.4 TH/MM3 (0-0.4); EOSINOPHIL % 5.3 % (0.0-4.0); HEMATOCRIT 32.8 % (35.0-46.0); HEMO FLAGS DIFF FINAL; LYMPH % 4.3 % (9.0-44.0); LYMPHOCYTE # 0.4 TH/MM3 (1.0-4.8); MEAN CELL VOLUME 81.4 FL (80.0-100.0); MEAN CORPUSCULAR HEMOGLOBIN 25.8 PG (27.0-34.0); MEAN CORPUSCULAR HGB CONC 31.8 % (32.0-36.0); MONO % 11.2 % (0.0-8.0); PLATELET COUNT 432 TH/MM3 (150-450); RED BLOOD COUNT 4.03 MIL/MM3 (4.00-5.30); RED CELL DISTRIBUTION WIDTH 18.4 % (11.6-17.2); RETIC % 1.8 % (0.4-3.0); REVIEW FLAG FINAL; WHITE BLOOD COUNT 8.2 TH/MM3 (4.0-11.0)
[2017-03-27 07:43] LABS: BICARBONATE 28.1 MEQ/L (21.0-32.0); POTASSIUM 3.7 MEQ/L (3.5-5.1)
[2017-03-27] MEDS: METOPROLOL TARTRATE 50 MG TAB PO SCH ×2 (08:20→23:33)
[2017-03-27] MEDS: PANTOPRAZOLE SOD 40 MG DELAYED RELEASE TAB PO SCH (08:20)
[2017-03-27] MEDS: FUROSEMIDE 20 MG TAB PO SCH (08:21)
[2017-03-27] MEDS: LISINOPRIL 5 MG TAB PO SCH (08:21)
[2017-03-27] MEDS: SODIUM CHLORIDE 0.9% FLUSH 10 ML FLUSH IV FLUSH SCH ×2 (08:25→23:33)
--- NOTE | 2017-03-27 09:08 | PD.CARD.PN ---
Subjective Subjective Remarks Pt without complaints Objective Medications Current Medications Medications (Trade) Dose Ordered Sig/Jennifer Route Start Time Stop Time Status Last Admin (NS Flush) 2 ml UNSCH PRN IV FLUSH 03/23/17 20:45 (NS Flush) 2 ml BID IV FLUSH 03/23/17 21:00 03/27/17 08:25 (Narcan Inj) 0.4 mg UNSCH PRN IV 03/23/17 20:45 (Synthroid) 50 mcg DAILY@0600 PO 03/24/17 06:00 03/27/17 05:37 (Lopressor) 50 mg BID PO 03/24/17 09:00 03/27/17 08:20 (Protonix) 40 mg DAILY PO 03/25/17 10:00 03/27/17 08:20 (Lasix) 20 mg DAILY PO 03/25/17 11:15 03/27/17 08:21 (Prinivil) 5 mg DAILY PO 03/26/17 09:00 03/27/17 08:21 Vital Signs / I&O Vital Signs Date Time Temp Pulse Resp B/P (MAP) Pulse Ox O2 Delivery O2 Flow Rate FiO2 03/27/17 08:00 96.9 83 18 121/62 (81) 96 03/27/17 04:00 97.7 75 16 128/62 (84) 97 03/26/17 20:00 98.1 77 16 130/64 (86) 97 03/26/17 17:32 73 03/26/17 16:00 98.1 87 20 146/68 (94) 97 03/26/17 12:00 97.9 78 20 115/63 (80) 97 I/O 03/26/17 03/26/17 03/26/17 03/27/17 03/27/17 03/27/17 06:59 14:59 22:59 06:59 14:59 22:59 Intake Total 600 ml 720 ml 240 ml Balance 600 ml 720 ml 240 ml Intake Oral 600 ml 720 ml 240 ml # Voids 4 4 3 # Bowel Movements 0 Physical Exam GENERAL: Well developed, well nourished. No acute distress. HEENT: Jugular venous pressure is normal. CHEST: Lungs clear to auscultation bilaterally. Unlabored respiratory effort. CARDIAC: Regular rate and rhythm without S3, S4, or murmur. ABDOMEN: Soft, nontender, no hepatosplenomegaly. Bowel sounds present. EXTREMITIES: No clubbing, cyanosis, or edema. Laboratory Laboratory Tests Test 03/26/17 12:11 03/27/17 06:53 White Blood Count 9.4 TH/MM3 8.2 TH/MM3 Red Blood Count 3.83 MIL/MM3 4.03 MIL/MM3 Hemoglobin 10.4 GM/DL 10.4 GM/DL Hematocrit 30.9 % 32.8 % Mean Corpuscular Volume 80.7 FL 81.4 FL Mean Corpuscular Hemoglobin 27.1 PG 25.8 PG Mean Corpuscular Hemoglobin Concent 33.5 % 31.8 % Red Cell Distribution Width 18.2 % 18.4 % Platelet Count 383 TH/MM3 432 TH/MM3 Mean Platelet Volume 6.8 FL 6.6 FL Blood Urea Nitrogen 21 MG/DL 22 MG/DL Creatinine 1.08 MG/DL 1.11 MG/DL Random Glucose 118 MG/DL 88 MG/DL Calcium Level 8.6 MG/DL 8.7 MG/DL Sodium Level 128 MEQ/L 130 MEQ/L Potassium Level 4.1 MEQ/L 3.7 MEQ/L Chloride Level 92 MEQ/L 92 MEQ/L Carbon Dioxide Level 27.5 MEQ/L 28.1 MEQ/L Anion Gap 9 MEQ/L 10 MEQ/L Estimat Glomerular Filtration Rate 48 ML/MIN 46 ML/MIN Iron Level 26 MCG/DL Total Iron Binding Capacity 143 MCG/DL Percent Iron Saturation 18.2 % Ferritin 2138 NG/ML Neutrophils (%) (Auto) 78.0 % Lymphocytes (%) (Auto) 4.3 % Monocytes (%) (Auto) 11.2 % Eosinophils (%) (Auto) 5.3 % Basophils (%) (Auto) 1.2 % Neutrophils # (Auto) 6.4 TH/MM3 Lymphocytes # (Auto) 0.4 TH/MM3 Monocytes # (Auto) 0.9 TH/MM3 Eosinophils # (Auto) 0.4 TH/MM3 Basophils # (Auto) 0.1 TH/MM3 CBC Comment DIFF FINAL Differential Comment Reticulocyte Count 1.8 % Absolute Reticulocyte Count 72.3 MIL/L Lactate Dehydrogenase 145 U/L Imaging Last [address] 03/26/17 0000 Signed Impressions: Service Date/Time: February 17:06 - CONCLUSION: 1. Small left pleural effusion. 2. Moderate cardiomegaly with no perihilar edema. 3. No evidence of mediastinal or hilar adenopathy. Jonathan Whittaker MD Abdomen/Pelvis CT 03/25/17 0000 Signed Impressions: Service Date/Time: Saturday, March 25, 2017 12:57 - CONCLUSION: Extensive alex hepatis and pericaval adenopathy that would be difficult to address percutaneously given its location without biopsy through the right lobe of the liver or vena cava. Mundo Fernando MD FACR Assessment and Plan Problem List: (1) Atrial fibrillation ICD Codes: I48.91 - Unspecified atrial fibrillation Plan: rate controlled; no change 03/27 no anticoagulation secondary to GIB (2) Acute systolic (congestive) heart failure ICD Codes: I50.21 - Acute systolic (congestive) heart failure Plan: EF 35-40%, reasonable compensation on BB, add alexis PO diuretics fluid and sodium restrict 1.5 L/ 2000mg a day not a revascularization candidate secondary to comorbid conditions => Pt has decline stress testing and procedures in past stable 03/27 (3) GI bleed ICD Codes: K92.2 - Gastrointestinal hemorrhage, unspecified Status: Acute (4) Generalized weakness ICD Codes: R53.1 - Weakness Status: Acute Problem Qualifiers (1) GI bleed: Qualified Codes: K92.2 - Gastrointestinal hemorrhage, unspecified Socorro Kumar MD Mar 27, 2017 09:07
--- NOTE | 2017-03-27 09:09 | PD.ONC.PN ---
Subjective Subjective Remarks Afebrile overnight. Patient anxious that she might be discharged from the hospital soon. She is eager to have workup completed. Objective Data Date Time Temp Pulse Resp B/P (MAP) Pulse Ox O2 Delivery O2 Flow Rate FiO2 03/27/17 08:00 96.9 83 18 121/62 (81) 96 03/27/17 04:00 97.7 75 16 128/62 (84) 97 03/26/17 20:00 98.1 77 16 130/64 (86) 97 03/26/17 17:32 73 03/26/17 16:00 98.1 87 20 146/68 (94) 97 03/26/17 12:00 97.9 78 20 115/63 (80) 97 03/27/17 03/27/17 03/27/17 07:00 15:00 23:00 Intake Total 240 ml Balance 240 ml Result Diagram: 03/27/17 0653 03/27/17 0653 Laboratory Results Laboratory Tests Test 03/26/17 12:11 03/27/17 06:53 White Blood Count 9.4 TH/MM3 8.2 TH/MM3 Red Blood Count 3.83 MIL/MM3 4.03 MIL/MM3 Hemoglobin 10.4 GM/DL 10.4 GM/DL Hematocrit 30.9 % 32.8 % Mean Corpuscular Volume 80.7 FL 81.4 FL Mean Corpuscular Hemoglobin 27.1 PG 25.8 PG Mean Corpuscular Hemoglobin Concent 33.5 % 31.8 % Red Cell Distribution Width 18.2 % 18.4 % Platelet Count 383 TH/MM3 432 TH/MM3 Mean Platelet Volume 6.8 FL 6.6 FL Blood Urea Nitrogen 21 MG/DL 22 MG/DL Creatinine 1.08 MG/DL 1.11 MG/DL Random Glucose 118 MG/DL 88 MG/DL Calcium Level 8.6 MG/DL 8.7 MG/DL Sodium Level 128 MEQ/L 130 MEQ/L Potassium Level 4.1 MEQ/L 3.7 MEQ/L Chloride Level 92 MEQ/L 92 MEQ/L Carbon Dioxide Level 27.5 MEQ/L 28.1 MEQ/L Anion Gap 9 MEQ/L 10 MEQ/L Estimat Glomerular Filtration Rate 48 ML/MIN 46 ML/MIN Iron Level 26 MCG/DL Total Iron Binding Capacity 143 MCG/DL Percent Iron Saturation 18.2 % Ferritin 2138 NG/ML Neutrophils (%) (Auto) 78.0 % Lymphocytes (%) (Auto) 4.3 % Monocytes (%) (Auto) 11.2 % Eosinophils (%) (Auto) 5.3 % Basophils (%) (Auto) 1.2 % Neutrophils # (Auto) 6.4 TH/MM3 Lymphocytes # (Auto) 0.4 TH/MM3 Monocytes # (Auto) 0.9 TH/MM3 Eosinophils # (Auto) 0.4 TH/MM3 Basophils # (Auto) 0.1 TH/MM3 CBC Comment DIFF FINAL Differential Comment Reticulocyte Count 1.8 % Absolute Reticulocyte Count 72.3 MIL/L Lactate Dehydrogenase 145 U/L Administered Medications Medications (Trade) Dose Ordered Sig/Jennifer Route PRN Reason Start Time Stop Time Status Last Admin Dose Admin Sodium Chloride (NS Flush) 2 ml BID IV FLUSH 03/23/17 21:00 03/27/17 08:25 Levothyroxine Sodium (Synthroid) 50 mcg DAILY@0600 PO 03/24/17 06:00 03/27/17 05:37 Metoprolol Tartrate (Lopressor) 50 mg BID PO 03/24/17 09:00 03/27/17 08:20 Pantoprazole Sodium (Protonix) 40 mg DAILY PO 03/25/17 10:00 03/27/17 08:20 Furosemide (Lasix) 20 mg DAILY PO 03/25/17 11:15 03/27/17 08:21 Lisinopril (Prinivil) 5 mg DAILY PO 03/26/17 09:00 03/27/17 08:21 Objective Remarks GENERAL: Elderly pale female upright in bed. SKIN: Warm and dry. +pallor HEAD: Normocephalic. EYES: No injection or drainage. NECK: Supple, trachea midline CARDIOVASCULAR: Regular rate and rhythm RESPIRATORY: Breath sounds equal bilaterally. No accessory muscle use. GASTROINTESTINAL: Abdomen soft, non-tender, nondistended. EXTREMITIES: No cyanosis NEUROLOGICAL: No obvious focal deficit. Awake, alert, and oriented x3. Assessment/Plan Problem List: (1) Abdominal lymphadenopathy ICD Codes: R59.0 - Localized enlarged lymph nodes Plan: --await endoscopic evaluation re: ?primary in upper GI tract causing adenopathy --CT chest shows small pleural effusion, no adenopathy (2) Anemia due to GI blood loss ICD Codes: D50.0 - Iron deficiency anemia secondary to blood loss (chronic) Plan: --symptomatic anemia associated with heme positive stools concerning for GI bleed. --upper endoscopy and colonoscopy per GI once cleared by cardiology Assessment 89y/o female admitted with anemia. Hematology consulted for abdominal adenopathy. h/o New anemia secondary to GI bleed. Heme positive stool. Mild renal insufficiency. hypothyroidism. Hypertension. Plan 1. await GI workup 2. continue to monitor CBC 3. supportive care Attending Statement The exam, history, and the medical decision-making described in the above note were completed with the assistance of the mid-level provider. I reviewed and agree with the findings presented. I attest that I had a [id number] encounter with the patient on the same day, and personally performed and documented my assessment and findings in the medical record. CT chest noted, no lesion to biopsy, no adenopathy which suggest adenopathy from localized disease. Candido with EGD/colonoscopy, pt may need EUS to determine if these LN maybe amenable to biopsy or if lesion in Upper GI could explain the adenopathy and blood loss. Noted creatinine increased, consider hydration, liberalize fluid to treat dye nephropathy. Franny Rm Mar 27, 2017 09:09 Vesta Clements MD Mar 27, 2017 20:09
--- NOTE | 2017-03-27 11:56 | HHI.PR ---
Subjective Remarks Patient reports she is feeling okay. Agreeable to have endoscopy. Objective Vitals Vital Signs Date Time Temp Pulse Resp B/P (MAP) Pulse Ox O2 Delivery O2 Flow Rate FiO2 03/27/17 08:00 96.9 83 18 121/62 (81) 96 03/27/17 04:00 97.7 75 16 128/62 (84) 97 03/26/17 20:00 98.1 77 16 130/64 (86) 97 03/26/17 17:32 73 03/26/17 16:00 98.1 87 20 146/68 (94) 97 03/26/17 12:00 97.9 78 20 115/63 (80) 97 I/O 03/26/17 03/26/17 03/26/17 03/27/17 03/27/17 03/27/17 07:00 15:00 23:00 07:00 15:00 23:00 Intake Total 600 ml 720 ml 240 ml Balance 600 ml 720 ml 240 ml Intake Oral 600 ml 720 ml 240 ml # Voids 4 4 3 # Bowel Movements 0 Result Diagram: 03/27/17 0653 03/27/17 0653 Objective Remarks GENERAL: Elderly female in no apparent distress. CARDIOVASCULAR: Normal rate and regular rhythm without murmurs, gallops, or rubs. RESPIRATORY: Good respiratory efforts. Breath sounds equal and clear to auscultation bilaterally. GASTROINTESTINAL: Abdomen soft, non-tender, non-distended. Normal active bowel sounds MUSCULOSKELETAL: Extremities without cyanosis, or edema. NEURO: Alert & Oriented x4 to person, place, time, situation. Moves all ext x4. Occasionally confused about timing of recent events. PSYCH: Appropriate mood and affect. A/P Problem List: (1) GI bleed ICD Code: K92.2 - Gastrointestinal hemorrhage, unspecified Status: Acute (2) CHF (congestive heart failure) ICD Code: I50.9 - Heart failure, unspecified Status: Acute (3) Generalized weakness ICD Code: R53.1 - Weakness Status: Acute (4) Acute systolic (congestive) heart failure ICD Code: I50.21 - Acute systolic (congestive) heart failure Assessment and Plan 89 y/o female with a history of hypothyroid, HTN, anemia presented to the ED with complaints of weakness. Patient states she has been very fatigued, and having increased weakness which is causing her to fall at home. GI bleed with Symptomatic Anemia: guaiac positive in the ED. Patient with weakness and shortness of breath. - Patient received 2 units of PRBC. She responded well. H&H improved and remained stable. -GI following. Patient initially refused EGD/colonoscopy. Now agreed to colonoscopy. GI planning for endoscopy once cleared by cardiology -Abdominal CT revealed alex hepatitis and pericaval lymphadenopathy concerning for lymphoma. Extensive alex hepatitis and pericaval lymphadenopathy concerning for lymphoma: -Oncology following. Recommends further evaluation by GI to see if GI primary source. - Palliative care following. Acute systolic CHF Exacerbation: BNP elevated at 537. CXR images reviewed, shows cardiomegaly with prominence of the interstitial markings diffusely representing pulmonary venous HTN or mild edema. -Lasix 20 mg IV given x1, symptoms resolved after Lasix and blood transfusion -2D echo showed LVEF of 35-40%. - Cardiology following. Continue medical management. Patient is a poor candidate for revascularization. From my conversation with her daughter. She refused stress test last year and did not want any invasive procedures. - continue metoprolol, low dose Lasix and JOHN inhibitor. - Monitor BP Possible early dementia: Patient appeared to still have capacity to designate a healthcare surrogate. She does get more confused in the evening. Appreciate palliative care following. She has agreed to have her daughter assist in medical decision making. Physical deconditioning, suspected related to anemia and CHF -PT following. Patient is now too deconditioned to live by herself. Patient will eventually need SNF. -Case management following. Hypothyroid, chronic -Continued home medications levothyroxine Hypertension, chronic -Continued home medications metoprolol -Monitor vitals DVT prophylaxis: SCDs, hold chemical prophylaxis due to gi bleed GI prophylaxis: Protonix Discharge Planning After completion of GI workup Plan to DC to SNF. Problem Qualifiers (1) GI bleed: Qualified Codes: K92.2 - Gastrointestinal hemorrhage, unspecified (2) CHF (congestive heart failure): Qualified Codes: I50.9 - Heart failure, unspecified Pushpa Botello MD Mar 27, 2017 11:56
--- NOTE | 2017-03-27 13:09 | HHI.HCPN ---
Reason for visit a. To assist with evaluation and management of symptoms including: Debility. b. To assist medical decision maker(s) with: better understanding of current medical conditions; weighing benefits/burdens of medical treatment options; making medical treatment decisions. . Subjective/Interval History Mrs. Santos dates an 89-year-old female with a medical history of hypertension, hypothyroidism and anemia percentage to the emergency room on 03/23/17 for evaluation of generalized weakness/fatigue. As per patient, she has been reporting worsening weakness/debility for the past few days to weeks. Frequent falls at home. Reports of recent blood transfusion at [facility]. On admission Hgb 8.0, repeat Hgb 7.2. Patient received 2 units of PRBC. Patient was admitted for further management. Palliative care has been consulted for further clarifications of goals of care. Oncology, Dr. Clements consulted on 03/26/17. Abdomen/pelvis CT revealing extensive alex hepatis and pericaval lymphadenopathy -concerning of lymphoma. GI following. Patient considering EGD/colonoscopy at this time. Patient seen in medical floor, she was sitting up in chair in no acute distress. Alert and oriented x self, place and situation, forgetful at times. Patient continue endorsing generalized weakness. Appetite and oral intake has improved. Patient working with physical therapy. Denying shortness of breath, nausea vomiting or abdominal discomfort. Laboratory workup revealing WBC 8.4, Hgb 10.4 , platelet count 432. BUN/creatinine 22/1.11. Assisted patient with completion of living will and designation of healthcare surrogate. Discussed risks, benefits and limitations of CPR given her ongoing chronic multiple comorbidities and advanced age. Patient electing to remain full code at this time. Patient was encouraged to discuss with family. Telephone conversation with patient's daughter Eve. Medical update provided. Discussed oncology recommendations. Daughter hesitant to proceeding with EGD/ colonoscopy at this time. Daughter was encouraged to continue goals of care conversation with patient. . Family/friend interactions See interval note. . Advance Directives Living Will: Copy in medical record Health Care Surrogate: Copy in medical record Advance Directive Specifics Date completed: 03/27/17. Health Care Surrogate(s): Patient designated her daughter Eve Santos as healthcare surrogate decision- maker, alternate son Jameson Santos. . Documented care wishes: Living will with standard verbiage as it pertains to artificial means of life support. . Significant change in goals: Full code. Continue aggressive management. . Objective Vital Signs Date Time Temp Pulse Resp B/P (MAP) Pulse Ox O2 Delivery O2 Flow Rate FiO2 03/27/17 08:00 96.9 83 18 121/62 (81) 96 03/27/17 04:00 97.7 75 16 128/62 (84) 97 03/26/17 20:00 98.1 77 16 130/64 (86) 97 03/26/17 17:32 73 03/26/17 16:00 98.1 87 20 146/68 (94) 97 Intake & Output 03/27/17 03/27/17 07:00 19:00 Intake Total 960 ml Balance 960 ml Intake Oral 960 ml # Voids 7 Physical Exam CONSTITUTIONAL/GENERAL: This is a frail, elderly female sitting up in chair in no acute distress. TUBES/LINES/DRAINS: PIV. SKIN: No jaundice, rashes. Large areas of ecchymoses on all extremities. Scattered scabs on left upper arm and right lower leg. Skin temperature appropriate. Not diaphoretic. HEAD: Atraumatic. Normocephalic. Bilateral temporal wasting noted. EYES: Pupils equal and round and reactive. Extraocular motions intact. No scleral icterus. No injection or drainage. ENT: Hearing grossly normal. Nose without bleeding or purulent drainage. Moist oral mucosa. NECK: Trachea midline. Supple, nontender. CARDIOVASCULAR: Irregular rate and rhythm. No JVD. Peripheral pulses symmetric. RESPIRATORY/CHEST: Symmetric, unlabored respirations. Clear to auscultation. Breath sounds equal bilaterally. No wheezes, rales, or rhonchi. GASTROINTESTINAL: Abdomen soft, non-tender, nondistended. No guarding. Bowel sounds present. GENITOURINARY: Without palpable bladder distension. MUSCULOSKELETAL: Extremities without clubbing, cyanosis, or edema. Muscular atrophy to all 4 extremities. NEUROLOGICAL: Awake and alert x self, place and situation. Confused at times. Moves all extremities. Follows commands. PSYCHIATRIC: No obvious anxiety/depression. Pleasant and cooperative. . Diagnostic Tests Laboratory Laboratory Tests Test 03/25/17 08:33 03/26/17 12:11 03/27/17 06:53 White Blood Count 8.4 TH/MM3 (4.0-11.0) 9.4 TH/MM3 (4.0-11.0) 8.2 TH/MM3 (4.0-11.0) Red Blood Count 4.13 MIL/MM3 (4.00-5.30) 3.83 MIL/MM3 (4.00-5.30) 4.03 MIL/MM3 (4.00-5.30) Hemoglobin 11.0 GM/DL (11.6-15.3) 10.4 GM/DL (11.6-15.3) 10.4 GM/DL (11.6-15.3) Hematocrit 33.6 % (35.0-46.0) 30.9 % (35.0-46.0) 32.8 % (35.0-46.0) Mean Corpuscular Volume 81.4 FL (80.0-100.0) 80.7 FL (80.0-100.0) 81.4 FL (80.0-100.0) Mean Corpuscular Hemoglobin 26.7 PG (27.0-34.0) 27.1 PG (27.0-34.0) 25.8 PG (27.0-34.0) Mean Corpuscular Hemoglobin Concent 32.8 % (32.0-36.0) 33.5 % (32.0-36.0) 31.8 % (32.0-36.0) Red Cell Distribution Width 17.6 % (11.6-17.2) 18.2 % (11.6-17.2) 18.4 % (11.6-17.2) Platelet Count 386 TH/MM3 (150-450) 383 TH/MM3 (150-450) 432 TH/MM3 (150-450) Mean Platelet Volume 6.9 FL (7.0-11.0) 6.8 FL (7.0-11.0) 6.6 FL (7.0-11.0) Neutrophils (%) (Auto) 79.3 % (16.0-70.0) 78.0 % (16.0-70.0) Lymphocytes (%) (Auto) 4.2 % (9.0-44.0) 4.3 % (9.0-44.0) Monocytes (%) (Auto) 11.8 % (0.0-8.0) 11.2 % (0.0-8.0) Eosinophils (%) (Auto) 4.0 % (0.0-4.0) 5.3 % (0.0-4.0) Basophils (%) (Auto) 0.7 % (0.0-2.0) 1.2 % (0.0-2.0) Neutrophils # (Auto) 6.7 TH/MM3 (1.8-7.7) 6.4 TH/MM3 (1.8-7.7) Lymphocytes # (Auto) 0.4 TH/MM3 (1.0-4.8) 0.4 TH/MM3 (1.0-4.8) Monocytes # (Auto) 1.0 TH/MM3 (0-0.9) 0.9 TH/MM3 (0-0.9) Eosinophils # (Auto) 0.3 TH/MM3 (0-0.4) 0.4 TH/MM3 (0-0.4) Basophils # (Auto) 0.1 TH/MM3 (0-0.2) 0.1 TH/MM3 (0-0.2) CBC Comment DIFF FINAL DIFF FINAL Differential Comment Blood Urea Nitrogen 21 MG/DL (7-18) 22 MG/DL (7-18) Creatinine 1.08 MG/DL (0.50-1.00) 1.11 MG/DL (0.50-1.00) Random Glucose 118 MG/DL (74-106) 88 MG/DL (74-106) Calcium Level 8.6 MG/DL (8.5-10.1) 8.7 MG/DL (8.5-10.1) Sodium Level 128 MEQ/L (136-145) 130 MEQ/L (136-145) Potassium Level 4.1 MEQ/L (3.5-5.1) 3.7 MEQ/L (3.5-5.1) Chloride Level 92 MEQ/L (98-107) 92 MEQ/L (98-107) Carbon Dioxide Level 27.5 MEQ/L (21.0-32.0) 28.1 MEQ/L (21.0-32.0) Anion Gap 9 MEQ/L (5-15) 10 MEQ/L (5-15) Estimat Glomerular Filtration Rate 48 ML/MIN (>89) 46 ML/MIN (>89) Iron Level 26 MCG/DL (50-170) Total Iron Binding Capacity 143 MCG/DL (250-450) Percent Iron Saturation 18.2 % (20-50) Ferritin 2138 NG/ML (8-252) Reticulocyte Count 1.8 % (0.4-3.0) Absolute Reticulocyte Count 72.3 MIL/L (20.0-150.0) Lactate Dehydrogenase 145 U/L (84-246) Result Diagram: 03/27/17 0653 03/27/17 0653 Microbiology Microbiology Date/Time Source Procedure Growth Status 03/23/17 18:40 Blood Peripheral Aerobic Blood Culture - Preliminary NO GROWTH IN 4 DAYS Resulted 03/23/17 18:40 Blood Peripheral Anaerobic Blood Culture - Preliminary NO GROWTH IN 4 DAYS Resulted Assessment and Plan Disease Oriented Problem List: (1) GI bleed (2) CHF (congestive heart failure) (3) Atrial fibrillation (4) Confusion (5) Frequent falls (6) Physical deconditioning Symptom Scale: (1) Debility 0-10 Scale: Unable to quantify Comment: Progressive. Worsened during the past 3 months. . Pertinent Non-Medical Issues Psychosocial: Patient originally from the [place]. Moved to [place] 59 years ago. In [place] for the past 37 years. Patient is , her 4 years ago. Patient has one daughter who lives in [place] and one son who lives in [facility]. 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 Spiritual: Legal: Advance directives reported as completed many years ago. Patient nor daughter have any copies. Patient interested in completion AD while inpatient. Ethical issues impacting care: Patient participating in medical decision-making , periods of confusion. Palliative care recommends shared decision-making with daughter. . Important Contacts Daughter Eve Santos [phone] Son Jameson Santos & . . Prognosis Mrs. Santos dates an 89-year-old female with a medical history of hypertension, hypothyroidism and anemia percentage to the emergency room on 03/23/17 for evaluation of generalized weakness/fatigue. As per patient, she has been reporting worsening weakness/debility for the past few days to weeks. Frequent falls at home. Reports of recent treatment at [facility] secondary to anemia where she received blood transfusion. Abdomen/pelvis CT revealing lymphadenopathy, concerns of lymphoma. Patient very high risk for further complications, continue decline and given progressive physical decline, chronic comorbidities and acute events. . Code Status: Full Code Plan * CODE STATUS: Full code. Risks, benefits and limitations of CPR, intubation and mechanical ventilation had been discussed at length with patient and daughter Eve. * HEALTHCARE DECISION-MAKING: Patient participating in medical decision-making, periods of confusion. Concerns regarding patient's full understanding of her clinical condition and her ability to weight the risks and burdens of treatment options -questionable dementia. Patient designated her daughter Eve Santos as healthcare surrogate decision-maker, alternate son Jameson Santos. * Palliative care recommends shared decision-making with daughter Eve/DANIAL. * GOALS OF CARE: Patient verbalized wishing to continue current medical management to include FULL code and GI workup. Patient's daughter is supportive of patient's wishes. Patient wishing to discharge to rehabilitation for physical straightening, [facility] placement thereafter. Patient and daughter were encouraged to continue goals of care/CODE STATUS conversation. * SYMPTOMS: = Debility, progressive. Worsen for the past 3 months. Frequent recent falls at home. Patient verbalized not being able to return to independent living given generalized decline. SNF vs [facility] upon discharge. PT following. * Palliative care assisted patient with completion of living will and designation of healthcare surrogate decision maker. Copies in file. * Palliative care contact information has been provided to patient and daughter. * Palliative care will continue to follow-up for further clarifications of goals of care as pt's clinical course continues to evolve. . Time Spent Total Floor Time (mins): 46 (Total time to include review of medical records, physical exam, goals of care conversation with patient, telephone conversation with patient's daughter. 22 minutes for assistance with completion of living will and designation of healthcare surrogate decision maker/advance directives.) >50% Counseling/Coord of Care: Yes Attestation To help prompt me to consider important information that might be impacting today's encounter and assessment, information from prior notes written by myself or my colleagues may have been "brought forward" into today's note. My signature on this note, however, is an attestation that I personally performed the exam, history, and/or decision-making noted today, and, unless otherwise indicated, the interactions with patient, family, and staff as well as the review of records all occurred today. I also attest that the listed assessment and stated plan reflect my best clinical judgment today based on the combination of historical information, prior notes, and today's exam/ interactions. When time spent is documented, it refers only to time spent today by the signer, or if indicated, combined time spent today by collaborating physician/nurse practitioner. Merle Tamayo Mar 27, 2017 13:08
--- NOTE | 2017-03-27 17:43 | HHI.GIFU ---
Subjective Remarks Resting in bed. No obvious active bleeding. Asking about information regarding rehab placements- deferred to case management. Pt has thought about egd/colonoscopy and is now agreeable. Objective Vitals I&O Vital Signs Date Time Temp Pulse Resp B/P (MAP) Pulse Ox O2 Delivery O2 Flow Rate FiO2 03/27/17 12:00 97.6 85 18 95/60 (72) 99 03/27/17 08:00 96.9 83 18 121/62 (81) 96 03/27/17 04:00 97.7 75 16 128/62 (84) 97 03/26/17 20:00 98.1 77 16 130/64 (86) 97 I/O 03/26/17 03/26/17 03/26/17 03/27/17 03/27/17 03/27/17 07:00 15:00 23:00 07:00 15:00 23:00 Intake Total 600 ml 720 ml 240 ml Balance 600 ml 720 ml 240 ml Intake Oral 600 ml 720 ml 240 ml # Voids 4 4 3 # Bowel Movements 0 Laboratory Laboratory Tests Test 03/27/17 06:53 White Blood Count 8.2 Red Blood Count 4.03 Hemoglobin 10.4 Hematocrit 32.8 Mean Corpuscular Volume 81.4 Mean Corpuscular Hemoglobin 25.8 Mean Corpuscular Hemoglobin Concent 31.8 Red Cell Distribution Width 18.4 Platelet Count 432 Mean Platelet Volume 6.6 Neutrophils (%) (Auto) 78.0 Lymphocytes (%) (Auto) 4.3 Monocytes (%) (Auto) 11.2 Eosinophils (%) (Auto) 5.3 Basophils (%) (Auto) 1.2 Neutrophils # (Auto) 6.4 Lymphocytes # (Auto) 0.4 Monocytes # (Auto) 0.9 Eosinophils # (Auto) 0.4 Basophils # (Auto) 0.1 CBC Comment DIFF FINAL Differential Comment Reticulocyte Count 1.8 Absolute Reticulocyte Count 72.3 Blood Urea Nitrogen 22 Creatinine 1.11 Random Glucose 88 Calcium Level 8.7 Lactate Dehydrogenase 145 Sodium Level 130 Potassium Level 3.7 Chloride Level 92 Carbon Dioxide Level 28.1 Anion Gap 10 Estimat Glomerular Filtration Rate 46 Date/Time Source Procedure Growth Status 03/23/17 18:40 Blood Peripheral Aerobic Blood Culture - Preliminary NO GROWTH IN 4 DAYS Resulted 03/23/17 18:40 Blood Peripheral Anaerobic Blood Culture - Preliminary NO GROWTH IN 4 DAYS Resulted Imaging Last Impressions Chest CT 03/26/17 0000 Signed Impressions: Service Date/Time: February 17:06 - CONCLUSION: 1. Small left pleural effusion. 2. Moderate cardiomegaly with no perihilar edema. 3. No evidence of mediastinal or hilar adenopathy. Jonathan Whittaker MD Abdomen/Pelvis CT 03/25/17 0000 Signed Impressions: Service Date/Time: Saturday, March 25, 2017 12:57 - CONCLUSION: Extensive alex hepatis and pericaval adenopathy that would be difficult to address percutaneously given its location without biopsy through the right lobe of the liver or vena cava. Mundo Fernando MD FACR Tibia/Fibula X-Ray 03/23/17 1834 Signed Impressions: Service Date/Time: Thursday, March 23, 2017 19:14 - CONCLUSION: No acute abnormality is seen. Anand Cook MD Head CT [id number]/[id number] Signed Impressions: Service Date/Time: Thursday, March 23, 2017 19:18 - CONCLUSION: 1. No acute abnormality is seen. 2. Atrophy. Anand Cook MD Chest X-Ray [id number] Signed Impressions: Service Date/Time: Thursday, March 23, 2017 19:05 - CONCLUSION: Cardiomegaly with prominence of the interstitial markings diffusely representing pulmonary venous hypertension or mild edema. Anand Cook MD Lumbar Spine X-Ray 03/23/17 0000 Signed Impressions: Service Date/Time: Thursday, March 23, 2017 19:09 - CONCLUSION: Mild degenerative change. Anand Cook MD Physical Exam HEENT: Normocephalic; atraumatic; no jaundice. CHEST: CTA CARDIAC: RRR ABDOMEN: Soft, nondistended, nontender; no hepatosplenomegaly; bowel sounds are present in all four quadrants. EXTREMITIES: No clubbing, cyanosis, or edema. SKIN: Multiple ecchymotic areas BUE. INTERIOR WIRER: No focal deficits; alert and oriented times three. Assessment and Plan Plan ASSESSMENT: - Anemia with Hemoccult. She was noted to be anemic and transfused 3 weeks ago at [facility]. No GI symptoms. Never had egd/colonoscopy. Denies any history of PUD. CT Abdomen and pelvis with iv contrast (03/25/17)---> Extensive alex hepatis and percaval adenopathy that would be difficult to address percutaneously given its location without biopsy through the right lobe of the liver or vena cava. Oncology following. S/P 2 units PRBC. HH 10.4/32.8. Pt was initially refusing egd/colonoscopy, now agreeable. - Abn. Wt. Loss. 50 lb weight loss in past [address] with extensive alex hepatis and pericaval adenopathy. Oncology following Needs egd/colon once cleared by cardiology - CHF, per attending. PLAN: - Pt now agreeable to egd/colonoscopy. Will schedule once cleared by cardiology - Heart healthy diet - Monitor labs - Transfuse as necessary - Supportive care - Further recommendations to follow based on results of above - Pt seen and examined by Dr. Barber and myself and this note is written on his behalf Jennifer Marc Mar 27, 2017 17:43
[2017-03-27] MEDS ORDERED: SODIUM CHLORID 0.9% 500 ML INJ 500 ML IV SCH (20:15)
[2017-03-28] VITALS (7 sets, daily range): BP systolic 103–143; BP diastolic 59–81; PULSE 70–96; RESP 16–18; TEMP 95.8–98.1; O2SAT 95–100
[2017-03-28] MEDS: LEVOTHYROXINE SODIUM 50 MCG TAB PO SCH (05:57)
[2017-03-28] MEDS: SODIUM CHLORIDE 0.9% FLUSH 10 ML FLUSH IV FLUSH SCH ×2 (08:03→21:39)
[2017-03-28] MEDS: METOPROLOL TARTRATE 50 MG TAB PO SCH ×2 (08:03→21:39)
[2017-03-28] MEDS: PANTOPRAZOLE SOD 40 MG DELAYED RELEASE TAB PO SCH (08:03)
[2017-03-28] MEDS: LISINOPRIL 5 MG TAB PO SCH (08:03)
[2017-03-28] MEDS: FUROSEMIDE 20 MG TAB PO SCH (08:03)
--- NOTE | 2017-03-28 09:48 | HHI.PR ---
Subjective Remarks No acute events overnight. Afebrile, vital signs stable. Patient with no complaints this morning. Objective Vitals Vital Signs Date Time Temp Pulse Resp B/P (MAP) Pulse Ox O2 Delivery O2 Flow Rate FiO2 03/28/17 08:07 81 03/28/17 08:00 97.1 90 18 103/63 (76) 96 03/28/17 04:00 97.7 90 17 130/80 (97) 98 03/28/17 00:00 98.1 96 16 143/81 (101) 97 03/27/17 20:04 97.7 84 16 138/77 (97) 97 03/27/17 17:03 73 03/27/17 16:00 98.3 80 18 127/67 (87) 97 03/27/17 12:00 97.6 85 18 95/60 (72) 99 I/O 03/27/17 03/27/17 03/27/17 03/28/17 03/28/17 03/28/17 07:00 15:00 23:00 07:00 15:00 23:00 Intake Total 240 ml 840 ml 240 ml Balance 240 ml 840 ml 240 ml Intake Oral 240 ml 840 ml 240 ml # Voids 3 10 3 # Bowel Movements 1 Result Diagram: 03/27/17 0653 03/27/17 0653 Objective Remarks GENERAL: Elderly female in no apparent distress. CARDIOVASCULAR: Normal rate and regular rhythm without murmurs, gallops, or rubs. RESPIRATORY: Good respiratory efforts. Breath sounds equal and clear to auscultation bilaterally. GASTROINTESTINAL: Abdomen soft, non-tender, non-distended. Normal active bowel sounds MUSCULOSKELETAL: Extremities without cyanosis, or edema. NEURO: Alert & Oriented x4 to person, place, time, situation. Moves all ext x4. Occasionally confused about timing of recent events. PSYCH: Appropriate mood and affect. A/P Problem List: (1) GI bleed ICD Code: K92.2 - Gastrointestinal hemorrhage, unspecified Status: Acute (2) CHF (congestive heart failure) ICD Code: I50.9 - Heart failure, unspecified Status: Acute (3) Generalized weakness ICD Code: R53.1 - Weakness Status: Acute (4) Acute systolic (congestive) heart failure ICD Code: I50.21 - Acute systolic (congestive) heart failure Assessment and Plan 89 y/o female with a history of hypothyroid, HTN, anemia presented to the ED with complaints of weakness. Patient states she has been very fatigued, and having increased weakness which is causing her to fall at home. GI bleed with Symptomatic Anemia: guaiac positive in the ED. Patient with weakness and shortness of breath. - Patient received 2 units of PRBC. She responded well. H&H improved and remained stable. Labs pending today. We'll continue to trend CBC for acute blood loss anemia. -GI following. Patient initially refused EGD/colonoscopy. Now agreed to colonoscopy. GI planning for endoscopy once cleared by cardiology -Abdominal CT revealed alex hepatitis and pericaval lymphadenopathy concerning for lymphoma. Extensive alex hepatitis and pericaval lymphadenopathy concerning for lymphoma: -Oncology following. Recommends further evaluation by GI to see if GI primary source. - Palliative care following. Acute systolic CHF Exacerbation: BNP elevated at 537. CXR images reviewed, shows cardiomegaly with prominence of the interstitial markings diffusely representing pulmonary venous HTN or mild edema. -Lasix 20 mg IV given x1, symptoms resolved after Lasix and blood transfusion -2D echo showed LVEF of 35-40%. - Cardiology following. Continue medical management. Patient is a poor candidate for revascularization. From my conversation with her daughter. She refused stress test last year and did not want any invasive procedures. - continue metoprolol, low dose Lasix and JOHN inhibitor. - Monitor BP Possible early dementia: Patient appeared to still have capacity to designate a healthcare surrogate. She does get more confused in the evening. Appreciate palliative care following. She has agreed to have her daughter assist in medical decision making. Physical deconditioning, suspected related to anemia and CHF -PT following. Patient is now too deconditioned to live by herself. Patient will eventually need SNF. -Case management following. Hypothyroid, chronic -Continued home medications levothyroxine Hypertension, chronic -Continued home medications metoprolol -Monitor vitals DVT prophylaxis: SCDs, hold chemical prophylaxis due to gi bleed GI prophylaxis: Protonix Discharge Planning After completion of GI workup Plan to DC to SNF. Problem Qualifiers (1) GI bleed: Qualified Codes: K92.2 - Gastrointestinal hemorrhage, unspecified (2) CHF (congestive heart failure): Qualified Codes: I50.9 - Heart failure, unspecified Milady Singh MD R3 Mar 28, 2017 09:48
--- NOTE | 2017-03-28 09:54 | HHI.GIFU ---
Subjective Remarks Patient is sleeping, wakes up to me calling her name. Breakfast tray next to her , not touched, states she is going to try and eat. States her daughter is coming today from [place] and going to discuss treatment plan. She is now declining having EGD/colonoscopy, stating this is going to be too much on her. She denies any signs of bleeding Objective Vitals I&O Vital Signs Date Time Temp Pulse Resp B/P (MAP) Pulse Ox O2 Delivery O2 Flow Rate FiO2 03/28/17 08:07 81 03/28/17 08:00 97.1 90 18 103/63 (76) 96 03/28/17 04:00 97.7 90 17 130/80 (97) 98 03/28/17 00:00 98.1 96 16 143/81 (101) 97 03/27/17 20:04 97.7 84 16 138/77 (97) 97 03/27/17 17:03 73 03/27/17 16:00 98.3 80 18 127/67 (87) 97 03/27/17 12:00 97.6 85 18 95/60 (72) 99 I/O 03/27/17 03/27/17 03/27/17 03/28/17 03/28/17 03/28/17 07:00 15:00 23:00 07:00 15:00 23:00 Intake Total 240 ml 840 ml 240 ml Balance 240 ml 840 ml 240 ml Intake Oral 240 ml 840 ml 240 ml # Voids 3 10 3 # Bowel Movements 1 Laboratory Date/Time Source Procedure Growth Status 03/23/17 18:40 Blood Peripheral Aerobic Blood Culture - Preliminary NO GROWTH IN 4 DAYS Resulted 03/23/17 18:40 Blood Peripheral Anaerobic Blood Culture - Preliminary NO GROWTH IN 4 DAYS Resulted Imaging Last Impressions Chest CT 03/26/17 0000 Signed Impressions: Service Date/Time: February 17:06 - CONCLUSION: 1. Small left pleural effusion. 2. Moderate cardiomegaly with no perihilar edema. 3. No evidence of mediastinal or hilar adenopathy. Jonathan Whittaker MD Abdomen/Pelvis CT 03/25/17 0000 Signed Impressions: Service Date/Time: Saturday, March 25, 2017 12:57 - CONCLUSION: Extensive alex hepatis and pericaval adenopathy that would be difficult to address percutaneously given its location without biopsy through the right lobe of the liver or vena cava. Mundo Fernando MD FACR Tibia/Fibula X-Ray 03/23/17 1834 Signed Impressions: Service Date/Time: Thursday, March 23, 2017 19:14 - CONCLUSION: No acute abnormality is seen. Anand Cook MD Head CT 03/23/178 Signed Impressions: Service Date/Time: Thursday, March 23, 2017 19:18 - CONCLUSION: 1. No acute abnormality is seen. 2. Atrophy. Anand Cook MD Chest X-Ray 03/23/171827 Signed Impressions: Service Date/Time: Thursday, March 23, 2017 19:05 - CONCLUSION: Cardiomegaly with prominence of the interstitial markings diffusely representing pulmonary venous hypertension or mild edema. Anand Cook MD Lumbar Spine X-Ray 03/23/17 0000 Signed Impressions: Service Date/Time: Thursday, March 23, 2017 19:09 - CONCLUSION: Mild degenerative change. Anand Cook MD Physical Exam HEENT: Normocephalic; atraumatic; no jaundice. CHEST: CTA CARDIAC: RRR ABDOMEN: Soft, nondistended, nontender; no hepatosplenomegaly; bowel sounds are present in all four quadrants. EXTREMITIES: No clubbing, cyanosis, or edema. SKIN: Multiple ecchymotic areas BUE. SALES ENABLEMENT CONSULTANT: No focal deficits; alert and oriented times three. Assessment and Plan Plan ASSESSMENT: - Anemia with Hemoccult. No bleeding reported. HH stable 10.4/32.8. She was noted to be anemic and transfused 3 weeks ago at [facility]. No GI symptoms. Never had egd/colonoscopy. Denies any history of PUD. CT Abdomen and pelvis with iv contrast (03/25/17)---> Extensive alex hepatis and percaval adenopathy that would be difficult to address percutaneously given its location without biopsy through the right lobe of the liver or vena cava. Oncology following. S/P 2 units PRBC. Pt is refusing egd/colonoscopy now stating this is going to be too much on her. Her daughter is coming today from [place] who is going to decide on treatment plan. - Abn. Wt. Loss. 50 lb weight loss in past [address] with extensive alex hepatis and pericaval adenopathy. Oncology following Refusing egd/colon today - CHF, Cardiology following, refusing stress test PLAN: - Pt refusing egd/colonoscopy today, although yesterday she was agreeable, stating her daughter is coming today from [place] and will discuss treatment plan. - Heart healthy diet - Monitor labs - Transfuse as necessary - Supportive care - Further recommendations to follow based on results of above - Pt seen and examined by Dr. Barber and myself and this note is written on his behalf Alex Valdez Mar 28, 2017 09:54
[2017-03-28 19:45] LABS: AUTOMATED NEUTROPHIL # 6.6 TH/MM3 (1.8-7.7); BASOPHIL # 0.1 TH/MM3 (0-0.2); EOSINOPHIL # 0.3 TH/MM3 (0-0.4); EOSINOPHIL % 4.1 % (0.0-4.0); HEMATOCRIT 31.7 % (35.0-46.0); HEMO FLAGS DIFF FINAL; LYMPH % 5.4 % (9.0-44.0); LYMPHOCYTE # 0.5 TH/MM3 (1.0-4.8); MEAN CELL VOLUME 82.3 FL (80.0-100.0); MEAN CORPUSCULAR HEMOGLOBIN 27.1 PG (27.0-34.0); MEAN CORPUSCULAR HGB CONC 32.9 % (32.0-36.0); MONO % 11.3 % (0.0-8.0); NEUT % 78.2 % (16.0-70.0); PLATELET COUNT 354 TH/MM3 (150-450); RED BLOOD COUNT 3.85 MIL/MM3 (4.00-5.30); RED CELL DISTRIBUTION WIDTH 18.2 % (11.6-17.2); WHITE BLOOD COUNT 8.4 TH/MM3 (4.0-11.0)
[2017-03-29] VITALS (7 sets, daily range): BP systolic 99–147; BP diastolic 56–75; PULSE 75–105; RESP 16–18; TEMP 97.2–98.5; O2SAT 94–99
[2017-03-29] MEDS: LEVOTHYROXINE SODIUM 50 MCG TAB PO SCH (05:59)
[2017-03-29 07:00] LABS: AUTOMATED NEUTROPHIL # 6.2 TH/MM3 (1.8-7.7); BASOPHIL # 0.1 TH/MM3 (0-0.2); BASOPHIL % 1.4 % (0.0-2.0); EOSINOPHIL # 0.5 TH/MM3 (0-0.4); EOSINOPHIL % 6.3 % (0.0-4.0); HEMATOCRIT 31.5 % (35.0-46.0); HEMO FLAGS DIFF FINAL; LYMPH % 4.8 % (9.0-44.0); LYMPHOCYTE # 0.4 TH/MM3 (1.0-4.8); MEAN CELL VOLUME 81.8 FL (80.0-100.0); MEAN CORPUSCULAR HEMOGLOBIN 27.1 PG (27.0-34.0); MEAN CORPUSCULAR HGB CONC 33.1 % (32.0-36.0); MONO % 12.3 % (0.0-8.0); NEUT % 75.2 % (16.0-70.0); PLATELET COUNT 397 TH/MM3 (150-450); RED BLOOD COUNT 3.85 MIL/MM3 (4.00-5.30); RED CELL DISTRIBUTION WIDTH 18.1 % (11.6-17.2); WHITE BLOOD COUNT 8.2 TH/MM3 (4.0-11.0)
[2017-03-29] MEDS: METOPROLOL TARTRATE 50 MG TAB PO SCH ×2 (07:22→21:00)
[2017-03-29] MEDS: LISINOPRIL 5 MG TAB PO SCH (07:22)
[2017-03-29] MEDS: FUROSEMIDE 20 MG TAB PO SCH (07:22)
[2017-03-29] MEDS: PANTOPRAZOLE SOD 40 MG DELAYED RELEASE TAB PO SCH (07:22)
[2017-03-29] MEDS: SODIUM CHLORIDE 0.9% FLUSH 10 ML FLUSH IV FLUSH SCH ×2 (07:22→21:00)
--- NOTE | 2017-03-29 09:38 | HHI.PR ---
Subjective Remarks No acute events overnight. Afebrile, vital signs stable. Patient awake and alert this morning, more lucid than yesterday. Daughter sitting bedside. Daughter is concerned as her mother has not been out of bed on her own since she was last cleared by PT on Thursday. Patient with no complaints at this time. Objective Vitals Vital Signs Date Time Temp Pulse Resp B/P (MAP) Pulse Ox O2 Delivery O2 Flow Rate FiO2 03/29/17 07:23 97.2 82 131/69 (89) 96 03/29/17 06:54 75 03/29/17 00:01 97.6 76 18 105/59 (74) 96 03/28/17 18:00 97.7 88 16 122/62 (82) 98 03/28/17 15:27 96.9 75 16 134/70 (91) 100 03/28/17 11:39 95.8 70 18 108/59 (75) 95 I/O 03/28/17 03/28/17 03/28/17 03/29/17 03/29/17 03/29/17 07:00 15:00 23:00 07:00 15:00 23:00 Intake Total 240 ml 720 ml Output Total 5 ml Balance 240 ml 715 ml Intake Oral 240 ml 720 ml Output Urine Total 5 ml # Voids 3 2 2 # Bowel Movements 3 Result Diagram: 03/29/17 0538 03/27/17 0653 Objective Remarks GENERAL: Elderly female in no apparent distress. CARDIOVASCULAR: Normal rate and regular rhythm without murmurs, gallops, or rubs. RESPIRATORY: Good respiratory efforts. Breath sounds equal and clear to auscultation bilaterally. GASTROINTESTINAL: Abdomen soft, non-tender, non-distended. Normal active bowel sounds MUSCULOSKELETAL: Extremities without cyanosis, or edema. NEURO: Alert & Oriented x4 to person, place, time, situation. Moves all ext x4. Occasionally confused about timing of recent events. PSYCH: Appropriate mood and affect. A/P Problem List: (1) GI bleed ICD Code: K92.2 - Gastrointestinal hemorrhage, unspecified Status: Acute (2) CHF (congestive heart failure) ICD Code: I50.9 - Heart failure, unspecified Status: Acute (3) Generalized weakness ICD Code: R53.1 - Weakness Status: Acute (4) Acute systolic (congestive) heart failure ICD Code: I50.21 - Acute systolic (congestive) heart failure Assessment and Plan 89 y/o female with a history of hypothyroid, HTN, anemia presented to the ED with complaints of weakness. Patient states she has been very fatigued, and having increased weakness which is causing her to fall at home. GI bleed with Symptomatic Anemia: guaiac positive in the ED. Patient with weakness and shortness of breath. - Patient received 2 units of PRBC. She responded well. H&H improved and remained stable. -GI following. Patient and her daughter very concerned about the possibility of a colonoscopy being too stressful for the patient to tolerate. Daughter and patient are both agreeable to EGD. Patient and her daughter will discuss the risks/benefits of the procedure with gastroenterology today. -Abdominal CT revealed alex hepatitis and pericaval lymphadenopathy concerning for lymphoma. Extensive alex hepatitis and pericaval lymphadenopathy concerning for lymphoma: - Oncology following. Recommends further evaluation by GI to see if GI primary source. Both patient and her daughter do not wish to have aggressive treatment. The daughter is unsure at this time if she wishes to have a lymph node biopsy done. She will discuss with gastroenterology today. - Palliative care following. Acute systolic CHF Exacerbation: BNP elevated at 537. CXR images reviewed, shows cardiomegaly with prominence of the interstitial markings diffusely representing pulmonary venous HTN or mild edema. -Lasix 20 mg IV given x1, symptoms resolved after Lasix and blood transfusion -2D echo showed LVEF of 35-40%. - Cardiology following. Continue medical management. Patient is a poor candidate for revascularization. From my conversation with her daughter. She refused stress test last year and did not want any invasive procedures. - continue metoprolol, low dose Lasix and JOHN inhibitor. - Monitor BP Possible early dementia: Patient appeared to still have capacity to designate a healthcare surrogate. She does get more confused in the evening. Appreciate palliative care following. She has agreed to have her daughter assist in medical decision making. Physical deconditioning, suspected related to anemia and CHF -PT following. Per her last physical therapy note, patient would be an excellent candidate for assisted living facility. However patient has not been out of bed since Thursday. We'll consult physical therapy for reevaluation for possible discharge with PT. -Case management following. Hypothyroid, chronic -Continued home medications levothyroxine Hypertension, chronic -Continued home medications metoprolol -Monitor vitals DVT prophylaxis: SCDs, hold chemical prophylaxis due to gi bleed GI prophylaxis: Protonix Discharge Planning After completion of GI workup Plan to DC to SNF. Problem Qualifiers (1) GI bleed: Qualified Codes: K92.2 - Gastrointestinal hemorrhage, unspecified (2) CHF (congestive heart failure): Qualified Codes: I50.9 - Heart failure, unspecified Milady Singh MD R3 Mar 29, 2017 09:38
--- NOTE | 2017-03-29 10:45 | PD.CARD.PN ---
Subjective Subjective Remarks Pt without complaints Objective Medications Current Medications Medications (Trade) Dose Ordered Sig/Jennifer Route Start Time Stop Time Status Last Admin (NS Flush) 2 ml UNSCH PRN IV FLUSH 03/23/17 20:45 (NS Flush) 2 ml BID IV FLUSH 03/23/17 21:00 03/29/17 07:22 (Narcan Inj) 0.4 mg UNSCH PRN IV 03/23/17 20:45 (Synthroid) 50 mcg DAILY@0600 PO 03/24/17 06:00 03/29/17 05:59 (Lopressor) 50 mg BID PO 03/24/17 09:00 03/29/17 07:22 (Protonix) 40 mg DAILY PO 03/25/17 10:00 03/29/17 07:22 (Lasix) 20 mg DAILY PO 03/25/17 11:15 03/29/17 07:22 (Prinivil) 5 mg DAILY PO 03/26/17 09:00 03/29/17 07:22 Vital Signs / I&O Vital Signs Date Time Temp Pulse Resp B/P (MAP) Pulse Ox O2 Delivery O2 Flow Rate FiO2 03/29/17 07:23 97.2 82 131/69 (89) 96 03/29/17 06:54 75 03/29/17 00:01 97.6 76 18 105/59 (74) 96 03/28/17 18:00 97.7 88 16 122/62 (82) 98 03/28/17 15:27 96.9 75 16 134/70 (91) 100 03/28/17 11:39 95.8 70 18 108/59 (75) 95 I/O 03/28/17 03/28/17 03/28/17 03/29/17 03/29/17 03/29/17 07:00 15:00 23:00 07:00 15:00 23:00 Intake Total 240 ml 720 ml Output Total 5 ml Balance 240 ml 715 ml Intake Oral 240 ml 720 ml Output Urine Total 5 ml # Voids 3 2 2 # Bowel Movements 3 Physical Exam GENERAL: Well developed, well nourished. No acute distress. HEENT: Jugular venous pressure is normal. CHEST: Lungs clear to auscultation bilaterally. Unlabored respiratory effort. CARDIAC: irregular rate and rhythm without S3, S4, or murmur. ABDOMEN: Soft, nontender, no hepatosplenomegaly. Bowel sounds present. EXTREMITIES: No clubbing, cyanosis, or edema. Laboratory Laboratory Tests Test 03/28/17 19:19 03/29/17 05:38 White Blood Count 8.4 TH/MM3 8.2 TH/MM3 Red Blood Count 3.85 MIL/MM3 3.85 MIL/MM3 Hemoglobin 10.4 GM/DL 10.4 GM/DL Hematocrit 31.7 % 31.5 % Mean Corpuscular Volume 82.3 FL 81.8 FL Mean Corpuscular Hemoglobin 27.1 PG 27.1 PG Mean Corpuscular Hemoglobin Concent 32.9 % 33.1 % Red Cell Distribution Width 18.2 % 18.1 % Platelet Count 354 TH/MM3 397 TH/MM3 Mean Platelet Volume 7.2 FL 7.3 FL Neutrophils (%) (Auto) 78.2 % 75.2 % Lymphocytes (%) (Auto) 5.4 % 4.8 % Monocytes (%) (Auto) 11.3 % 12.3 % Eosinophils (%) (Auto) 4.1 % 6.3 % Basophils (%) (Auto) 1.0 % 1.4 % Neutrophils # (Auto) 6.6 TH/MM3 6.2 TH/MM3 Lymphocytes # (Auto) 0.5 TH/MM3 0.4 TH/MM3 Monocytes # (Auto) 1.0 TH/MM3 1.0 TH/MM3 Eosinophils # (Auto) 0.3 TH/MM3 0.5 TH/MM3 Basophils # (Auto) 0.1 TH/MM3 0.1 TH/MM3 CBC Comment DIFF FINAL DIFF FINAL Differential Comment Assessment and Plan Problem List: (1) Atrial fibrillation ICD Codes: I48.91 - Unspecified atrial fibrillation Plan: rate controlled; no change 03/29 no anticoagulation secondary to GIB (2) Acute systolic (congestive) heart failure ICD Codes: I50.21 - Acute systolic (congestive) heart failure Plan: EF 35-40%, reasonable compensation on BB, alexis PO diuretics fluid and sodium restrict 1.5 L/ 2000mg a day not a revascularization candidate secondary to comorbid conditions => Pt has decline stress testing and procedures in past stable 03/29 (3) GI bleed ICD Codes: K92.2 - Gastrointestinal hemorrhage, unspecified Status: Acute (4) Generalized weakness ICD Codes: R53.1 - Weakness Status: Acute Problem Qualifiers (1) GI bleed: Qualified Codes: K92.2 - Gastrointestinal hemorrhage, unspecified Socorro Kumar MD Mar 29, 2017 10:45
--- NOTE | 2017-03-29 11:29 | HHI.GIFU ---
Subjective Remarks Patient reports feeling better today. I spoke with her at bedside with her daughter who has arrived from [place]. After offering EGD and Colonoscopy to evaluate blood in stool, anemia and lymphadenopathy and explaining the procedures the patient and daughter decline the procedures. They understand we may find cancer and patient is adamant she does not want chemotherapy or anything else for cancer if she has it. We discussed possibility of PUD or H Pylori as cause for her symptoms and findings. Perhaps even a MALT tumor of stomach that would be treatable with antibiotics. Patient and daughter want to approach that way for now. Objective Vitals I&O Vital Signs Date Time Temp Pulse Resp B/P (MAP) Pulse Ox O2 Delivery O2 Flow Rate FiO2 03/29/17 11:07 97.4 75 16 99/63 (75) 99 03/29/17 07:23 97.2 82 131/69 (89) 96 03/29/17 06:54 75 03/29/17 00:01 97.6 76 18 105/59 (74) 96 03/28/17 18:00 97.7 88 16 122/62 (82) 98 03/28/17 15:27 96.9 75 16 134/70 (91) 100 03/28/17 11:39 95.8 70 18 108/59 (75) 95 I/O 03/28/17 03/28/17 03/28/17 03/29/17 03/29/17 03/29/17 07:00 15:00 23:00 07:00 15:00 23:00 Intake Total 240 ml 720 ml Output Total 5 ml Balance 240 ml 715 ml Intake Oral 240 ml 720 ml Output Urine Total 5 ml # Voids 3 2 2 # Bowel Movements 3 Laboratory Laboratory Tests Test 03/28/17 19:19 03/29/17 05:38 White Blood Count 8.4 8.2 Red Blood Count 3.85 3.85 Hemoglobin 10.4 10.4 Hematocrit 31.7 31.5 Mean Corpuscular Volume 82.3 81.8 Mean Corpuscular Hemoglobin 27.1 27.1 Mean Corpuscular Hemoglobin Concent 32.9 33.1 Red Cell Distribution Width 18.2 18.1 Platelet Count 354 397 Mean Platelet Volume 7.2 7.3 Neutrophils (%) (Auto) 78.2 75.2 Lymphocytes (%) (Auto) 5.4 4.8 Monocytes (%) (Auto) 11.3 12.3 Eosinophils (%) (Auto) 4.1 6.3 Basophils (%) (Auto) 1.0 1.4 Neutrophils # (Auto) 6.6 6.2 Lymphocytes # (Auto) 0.5 0.4 Monocytes # (Auto) 1.0 1.0 Eosinophils # (Auto) 0.3 0.5 Basophils # (Auto) 0.1 0.1 CBC Comment DIFF FINAL DIFF FINAL Differential Comment Date/Time Source Procedure Growth Status 03/23/17 18:40 Blood Peripheral Aerobic Blood Culture - Final NO GROWTH IN 5 DAYS Complete 03/23/17 18:40 Blood Peripheral Anaerobic Blood Culture - Final NO GROWTH IN 5 DAYS Complete Physical Exam HEENT: Normocephalic; atraumatic; no jaundice. CHEST: CTA CARDIAC: RRR ABDOMEN: Soft, nondistended, nontender; no hepatosplenomegaly; bowel sounds are present in all four quadrants. EXTREMITIES: No clubbing, cyanosis, or edema. SKIN: Multiple ecchymotic areas BUE. SURVEILLANCE MONITOR: No focal deficits; alert and oriented times three. Assessment and Plan Plan ASSESSMENT: - Anemia with Hemoccult. No bleeding reported. HH stable 10.4/32.8. She was noted to be anemic and transfused 3 weeks ago at [facility]. No GI symptoms. Never had egd/colonoscopy. Denies any history of PUD. CT Abdomen and pelvis with iv contrast (03/25/17)---> Extensive alex hepatis and percaval adenopathy that would be difficult to address percutaneously given its location without biopsy through the right lobe of the liver or vena cava. Oncology following. S/P 2 units PRBC. Pt is refusing egd/colonoscopy now stating this is going to be too much on her. Her daughter is coming today from [place] who is going to decide on treatment plan. - Abn. Wt. Loss. 50 lb weight loss in past [address] with extensive alex hepatis and pericaval adenopathy. Oncology following Refusing egd/colon today - CHF, Cardiology following, refusing stress test - Rule out benign causes for heme in stool and wt loss. PUD, H pylori. Patient and daughter are refusing EGD and colonososcopy as well as biopsy to make diagnosis of possible cancer PLAN: - Breath test or stool test for H Pylori, if positive, will treat for two weeks with triple therapy. - Heart healthy diet - Monitor labs - Transfuse as necessary - Supportive care - Further recommendations to follow based on results of above Raffy Barber MD Mar 29, 2017 11:29
[2017-03-29] MEDS ORDERED: POLYETHYLENE GLYCOL 17 GM PKG PO ONE (12:00)
[2017-03-30] VITALS (7 sets, daily range): BP systolic 99–124; BP diastolic 52–68; PULSE 78–99; RESP 17–21; TEMP 96.2–97.1; O2SAT 96–99
[2017-03-30] MEDS: LEVOTHYROXINE SODIUM 50 MCG TAB PO SCH (05:03)
[2017-03-30 07:48] LABS: AUTOMATED NEUTROPHIL # 6.3 TH/MM3 (1.8-7.7); BASOPHIL # 0.1 TH/MM3 (0-0.2); BASOPHIL % 0.8 % (0.0-2.0); EOSINOPHIL # 0.5 TH/MM3 (0-0.4); EOSINOPHIL % 5.7 % (0.0-4.0); HEMATOCRIT 32.2 % (35.0-46.0); HEMO FLAGS DIFF FINAL; LYMPH % 5.3 % (9.0-44.0); LYMPHOCYTE # 0.4 TH/MM3 (1.0-4.8); MEAN CELL VOLUME 82.4 FL (80.0-100.0); MEAN CORPUSCULAR HEMOGLOBIN 27.2 PG (27.0-34.0); NEUT % 76.2 % (16.0-70.0); PLATELET COUNT 384 TH/MM3 (150-450); RED BLOOD COUNT 3.91 MIL/MM3 (4.00-5.30); WHITE BLOOD COUNT 8.2 TH/MM3 (4.0-11.0)
[2017-03-30 08:08] LABS: BICARBONATE 26.1 MEQ/L (21.0-32.0); MAGNESIUM 2.4 MG/DL (1.5-2.5); POTASSIUM 3.9 MEQ/L (3.5-5.1)
[2017-03-30] MEDS: PANTOPRAZOLE SOD 40 MG DELAYED RELEASE TAB PO SCH (08:19)
[2017-03-30] MEDS: LISINOPRIL 5 MG TAB PO SCH (08:19)
[2017-03-30] MEDS: FUROSEMIDE 20 MG TAB PO SCH (08:19)
[2017-03-30] MEDS: METOPROLOL TARTRATE 50 MG TAB PO SCH ×2 (08:19→21:00)
[2017-03-30] MEDS: SODIUM CHLORIDE 0.9% FLUSH 10 ML FLUSH IV FLUSH SCH ×2 (08:28→20:56)
[2017-03-30] MEDS ORDERED: ONDANSETRON HCL 4 MG/2 ML VIAL IV PRN (12:15)
--- NOTE | 2017-03-30 12:29 | PD.ONC.PN ---
Subjective Subjective Remarks Daughter at bedside, discussed at lenght finding and consequences of her refusal for intervention. Objective Data Date Time Temp Pulse Resp B/P (MAP) Pulse Ox O2 Delivery O2 Flow Rate FiO2 03/30/17 08:00 97.0 95 21 104/58 (73) 96 03/30/17 04:05 97.0 98 18 124/65 (84) 96 03/29/17 23:20 98.5 105 18 147/75 (99) 97 03/29/17 20:00 98.5 87 18 106/56 (73) 96 03/29/17 14:57 97.9 80 16 130/67 (88) 94 03/30/17 03/30/17 03/30/17 06:59 14:59 22:59 Intake Total 220 ml Balance 220 ml Result Diagram: 03/30/1762503/30/17625 Laboratory Results Laboratory Tests Test 03/29/17 16:00 03/30/17 06:26 White Blood Count 8.2 TH/MM3 Red Blood Count 3.91 MIL/MM3 Hemoglobin 10.6 GM/DL Hematocrit 32.2 % Mean Corpuscular Volume 82.4 FL Mean Corpuscular Hemoglobin 27.2 PG Mean Corpuscular Hemoglobin Concent 33.0 % Red Cell Distribution Width 18.0 % Platelet Count 384 TH/MM3 Mean Platelet Volume 7.5 FL Neutrophils (%) (Auto) 76.2 % Lymphocytes (%) (Auto) 5.3 % Monocytes (%) (Auto) 12.0 % Eosinophils (%) (Auto) 5.7 % Basophils (%) (Auto) 0.8 % Neutrophils # (Auto) 6.3 TH/MM3 Lymphocytes # (Auto) 0.4 TH/MM3 Monocytes # (Auto) 1.0 TH/MM3 Eosinophils # (Auto) 0.5 TH/MM3 Basophils # (Auto) 0.1 TH/MM3 CBC Comment DIFF FINAL Differential Comment Blood Urea Nitrogen 19 MG/DL Creatinine 1.28 MG/DL Random Glucose 90 MG/DL Calcium Level 8.8 MG/DL Magnesium Level 2.4 MG/DL Sodium Level 130 MEQ/L Potassium Level 3.9 MEQ/L Chloride Level 94 MEQ/L Carbon Dioxide Level 26.1 MEQ/L Anion Gap 10 MEQ/L Estimat Glomerular Filtration Rate 39 ML/MIN Administered Medications Medications (Trade) Dose Ordered Sig/Jennifer Route PRN Reason Start Time Stop Time Status Last Admin Dose Admin Sodium Chloride (NS Flush) 2 ml BID IV FLUSH 03/23/17 21:00 03/30/17 08:28 Levothyroxine Sodium (Synthroid) 50 mcg DAILY@0600 PO 03/24/17 06:00 03/30/17 05:03 Metoprolol Tartrate (Lopressor) 50 mg BID PO 03/24/17 09:00 03/30/17 08:19 Pantoprazole Sodium (Protonix) 40 mg DAILY PO 03/25/17 10:00 03/30/17 08:19 Furosemide (Lasix) 20 mg DAILY PO 03/25/17 11:15 03/30/17 08:19 Lisinopril (Prinivil) 5 mg DAILY PO 03/26/17 09:00 03/30/17 08:19 Objective Remarks GENERAL: Elderly pale female upright in bed. SKIN: Warm and dry. +pallor HEAD: Normocephalic. EYES: No injection or drainage. NECK: Supple, trachea midline CARDIOVASCULAR: Regular rate and rhythm RESPIRATORY: Breath sounds equal bilaterally. No accessory muscle use. GASTROINTESTINAL: Abdomen soft, non-tender, nondistended. EXTREMITIES: No cyanosis NEUROLOGICAL: No obvious focal deficit. Awake, alert, and oriented x3. Assessment/Plan Problem List: (1) Abdominal lymphadenopathy ICD Codes: R59.0 - Localized enlarged lymph nodes Plan: 03/30/17. Pt refusing endoscopy, unable to confirm diagnosis of malignancy vs. source of GI bleed. Pt does not want procedures, agree to transfusion, does not want treatment if cancer. Discussed the cachexia, decrease energy, hyponatremia could be paraneoplastic, treatment should ideally be addressing underlying malignancy, advised that these symptoms if due to untreated cancer would progress. Philosophy cw with hospice care. Consider placement to SNF associated w/ hospice should she progress. Decline consult with psychiatry for depression. Palliative care following. Support pt and daughter in decision. 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 Willing to receive transfusion. Discussed difficulty with anticoagulation for A fib, competing needs. Likely need to stop A fib anticoagulation. --symptomatic anemia associated with heme positive stools concerning for GI bleed. --upper endoscopy and colonoscopy per GI once cleared by cardiology Assessment 89y/o female admitted with anemia. Hematology consulted for abdominal adenopathy. h/o New anemia secondary to GI bleed. Heme positive stool. Mild renal insufficiency. hypothyroidism. Hypertension. Plan 1. Decline GI workup and accept consequences of refusal 2. agreed to continue to monitor CBC and receive transfusion as needed 3. support patient in her decision, daughter is in agreement 4. Advised to consider hospice care. 5. Discussed with primary team 6. Oncology will sign off. Vesta Clements MD Mar 30, 2017 12:29
--- NOTE | 2017-03-30 13:43 | HHI.HCPN ---
Reason for visit a. To assist with evaluation and management of symptoms including: Debility. b. To assist medical decision maker(s) with: better understanding of current medical conditions; weighing benefits/burdens of medical treatment options; making medical treatment decisions. . Subjective/Interval History Mrs. Santos dates an 89-year-old female with a medical history of hypertension, hypothyroidism and anemia percentage to the emergency room on 03/23/17 for evaluation of generalized weakness/fatigue. As per patient, she has been reporting worsening weakness/debility for the past few days to weeks. Frequent falls at home. Reports of recent blood transfusion at [facility]. On admission Hgb 8.0, repeat Hgb 7.2. Patient received 2 units of PRBC. Patient was admitted for further management. Palliative care has been consulted for further clarifications of goals of care. Patient seen in her room. She was resting in bed in no acute distress. Denies pain, shortness of breath, nausea/vomiting or abdominal discomfort. Endorsing feeling much better than last week. Verbalized looking forward to being discharged from the hospital. Patient afebrile, stable hemodynamically. Tolerated room air with oxygen saturation in the mid to high 90s. Laboratory workup today revealing WBC 8.4, Hgb 10.6, platelet count 384. BUN/creatinine 19 /1.28. Patient participating in physical therapy, [facility] recommended for discharge. Patient being followed by oncology Dr. Clements. Patient declining endoscopy, agrees with blood transfusions if clinically needed. Declines any treatment if cancer is discovered. Hospice discussed with oncology. Met with patient and her daughter Eve at bedside. Medical update provided. Shared concerns of patient overall poor prognosis given her persistent GI bleed , multiple acute comorbidities, advanced age and physical deconditioning. Discussed continuation of current medical management versus comfort-directed care with hospice. Discussed risks, benefits and limitations of CPR, intubation and mechanical ventilation given the above. Patient not engaging much in goals of care discussion, however has previously discussed with daughter and attending/consulting physicians. Daughter reports that patient has elected comfort-directed care,. Family fully supportive of this. Reviewed hospice philosophy and benefits, all questions were answered in great detail. Goal of therapy at this time is for patient to be discharged to [facility] vs long- term placement with hospice services. . Family/friend interactions See interval note. . Advance Directives Living Will: Copy in medical record Health Care Surrogate: Copy in medical record Advance Directive Specifics Date completed: 03/27/17. Health Care Surrogate(s): Patient designated her daughter Eve Santos as healthcare surrogate decision- maker, alternate son Jameson Santos. . Documented care wishes: Living will with standard verbiage as it pertains to artificial means of life support. . Significant change in goals: DNR/DNI. Comfort directed care. Considering hospice. . Objective Vital Signs Date Time Temp Pulse Resp B/P (MAP) Pulse Ox O2 Delivery O2 Flow Rate FiO2 03/30/17 12:00 96.2 78 20 105/52 (69) 97 03/30/17 08:00 97.0 95 21 104/58 (73) 96 03/30/17 04:05 97.0 98 18 124/65 (84) 96 03/29/17 23:20 98.5 105 18 147/75 (99) 97 03/29/17 20:00 98.5 87 18 106/56 (73) 96 03/29/17 14:57 97.9 80 16 130/67 (88) 94 Intake & Output 03/30/17 03/30/17 06:59 18:59 Intake Total 340 ml Balance 340 ml Intake Oral 340 ml # Voids 5 # Bowel Movements 0 Physical Exam CONSTITUTIONAL/GENERAL: This is a frail, elderly female sitting up in chair in no acute distress. TUBES/LINES/DRAINS: PIV. SKIN: No jaundice, rashes. Large areas of ecchymoses on all extremities. Scattered scabs on left upper arm and right lower leg. Skin temperature appropriate. Not diaphoretic. HEAD: Atraumatic. Normocephalic. Bilateral temporal wasting noted. EYES: Pupils equal and round and reactive. Extraocular motions intact. No scleral icterus. No injection or drainage. ENT: Hearing grossly normal. Nose without bleeding or purulent drainage. Moist oral mucosa. NECK: Trachea midline. Supple, nontender. CARDIOVASCULAR: Irregular rate and rhythm. No JVD. Peripheral pulses symmetric. RESPIRATORY/CHEST: Symmetric, unlabored respirations. Clear to auscultation. Breath sounds equal bilaterally. No wheezes, rales, or rhonchi. GASTROINTESTINAL: Abdomen soft, non-tender, nondistended. No guarding. Bowel sounds present. GENITOURINARY: Without palpable bladder distension. MUSCULOSKELETAL: Extremities without clubbing, cyanosis, or edema. Muscular atrophy to all 4 extremities. NEUROLOGICAL: Awake and alert x self, place and situation. Confused at times. Moves all extremities. Follows commands. PSYCHIATRIC: No obvious anxiety/depression. Pleasant and cooperative. . Diagnostic Tests Laboratory Laboratory Tests Test 03/28/17 19:19 03/29/17 05:38 03/29/17 16:00 03/30/17 06:26 White Blood Count 8.4 TH/MM3 (4.0-11.0) 8.2 TH/MM3 (4.0-11.0) 8.2 TH/MM3 (4.0-11.0) Red Blood Count 3.85 MIL/MM3 (4.00-5.30) 3.85 MIL/MM3 (4.00-5.30) 3.91 MIL/MM3 (4.00-5.30) Hemoglobin 10.4 GM/DL (11.6-15.3) 10.4 GM/DL (11.6-15.3) 10.6 GM/DL (11.6-15.3) Hematocrit 31.7 % (35.0-46.0) 31.5 % (35.0-46.0) 32.2 % (35.0-46.0) Mean Corpuscular Volume 82.3 FL (80.0-100.0) 81.8 FL (80.0-100.0) 82.4 FL (80.0-100.0) Mean Corpuscular Hemoglobin 27.1 PG (27.0-34.0) 27.1 PG (27.0-34.0) 27.2 PG (27.0-34.0) Mean Corpuscular Hemoglobin Concent 32.9 % (32.0-36.0) 33.1 % (32.0-36.0) 33.0 % (32.0-36.0) Red Cell Distribution Width 18.2 % (11.6-17.2) 18.1 % (11.6-17.2) 18.0 % (11.6-17.2) Platelet Count 354 TH/MM3 (150-450) 397 TH/MM3 (150-450) 384 TH/MM3 (150-450) Mean Platelet Volume 7.2 FL (7.0-11.0) 7.3 FL (7.0-11.0) 7.5 FL (7.0-11.0) Neutrophils (%) (Auto) 78.2 % (16.0-70.0) 75.2 % (16.0-70.0) 76.2 % (16.0-70.0) Lymphocytes (%) (Auto) 5.4 % (9.0-44.0) 4.8 % (9.0-44.0) 5.3 % (9.0-44.0) Monocytes (%) (Auto) 11.3 % (0.0-8.0) 12.3 % (0.0-8.0) 12.0 % (0.0-8.0) Eosinophils (%) (Auto) 4.1 % (0.0-4.0) 6.3 % (0.0-4.0) 5.7 % (0.0-4.0) Basophils (%) (Auto) 1.0 % (0.0-2.0) 1.4 % (0.0-2.0) 0.8 % (0.0-2.0) Neutrophils # (Auto) 6.6 TH/MM3 (1.8-7.7) 6.2 TH/MM3 (1.8-7.7) 6.3 TH/MM3 (1.8-7.7) Lymphocytes # (Auto) 0.5 TH/MM3 (1.0-4.8) 0.4 TH/MM3 (1.0-4.8) 0.4 TH/MM3 (1.0-4.8) Monocytes # (Auto) 1.0 TH/MM3 (0-0.9) 1.0 TH/MM3 (0-0.9) 1.0 TH/MM3 (0-0.9) Eosinophils # (Auto) 0.3 TH/MM3 (0-0.4) 0.5 TH/MM3 (0-0.4) 0.5 TH/MM3 (0-0.4) Basophils # (Auto) 0.1 TH/MM3 (0-0.2) 0.1 TH/MM3 (0-0.2) 0.1 TH/MM3 (0-0.2) CBC Comment DIFF FINAL DIFF FINAL DIFF FINAL Differential Comment Blood Urea Nitrogen 19 MG/DL (7-18) Creatinine 1.28 MG/DL (0.50-1.00) Random Glucose 90 MG/DL (74-106) Calcium Level 8.8 MG/DL (8.5-10.1) Magnesium Level 2.4 MG/DL (1.5-2.5) Sodium Level 130 MEQ/L (136-145) Potassium Level 3.9 MEQ/L (3.5-5.1) Chloride Level 94 MEQ/L (98-107) Carbon Dioxide Level 26.1 MEQ/L (21.0-32.0) Anion Gap 10 MEQ/L (5-15) Estimat Glomerular Filtration Rate 39 ML/MIN (>89) Result Diagram: 03/30/1762503/30/17625 Assessment and Plan Disease Oriented Problem List: (1) GI bleed (2) CHF (congestive heart failure) (3) Atrial fibrillation (4) Confusion (5) Frequent falls (6) Physical deconditioning Symptom Scale: (1) Debility 0-10 Scale: Unable to quantify Comment: Progressive. Worsened during the past 3 months. . Pertinent Non-Medical Issues Psychosocial: Patient originally from the [place]. Moved to [place] 59 years ago. In [place] for the past 37 years. Patient is , her 4 years ago. Patient has one daughter who lives in [place] [employer] and one son who lives in [facility]. 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 Spiritual: Legal: Advance directives reported as completed many years ago. Patient nor daughter have any copies. Patient interested in completion AD while inpatient. Ethical issues impacting care: Patient participating in medical decision-making , periods of confusion. Palliative care recommends shared decision-making with daughter. . Important Contacts Daughter Eve Santos [phone] Son Jameson Santos & . . Prognosis Mrs. Santos dates an 89-year-old female with a medical history of hypertension, hypothyroidism and anemia percentage to the emergency room on 03/23/17 for evaluation of generalized weakness/fatigue. As per patient, she has been reporting worsening weakness/debility for the past few days to weeks. Frequent falls at home. Reports of recent treatment at [facility] secondary to anemia where she received blood transfusion. Abdomen/pelvis CT revealing lymphadenopathy, concerns of lymphoma. Patient very high risk for further complications, continue decline and given progressive physical decline, chronic comorbidities and acute events. . Code Status: No Code Plan * CODE STATUS: Patient and daughter electing DNR/DNI. Community DNR introduced , patient to complete prior to discharge. * HEALTHCARE DECISION-MAKING: Patient participating in medical decision-making, periods of confusion. Concerns regarding patient's full understanding of her clinical condition and her ability to weight the risks and burdens of treatment options -questionable dementia. Patient designated her daughter Eve Santos as healthcare surrogate decision-maker, alternate son Jameson Santos. * Palliative care recommends shared decision-making with daughter Eve/DANIAL. * GOALS OF CARE: Patient and family electing conservative management short of no code. Patient declining GI bleed workup at this time. Goal of therapy is to be discharge to [facility] vs long-term facility with hospice services. Hospice referral has been made. Patient's 2 children fully supportive of patient's wishes. * SYMPTOMS: = Debility, progressive. Worsen for the past 3 months. Frequent recent falls at home. Patient verbalized not being able to return to independent living given generalized decline. SNF vs [facility] upon discharge. PT following. * Hospice referral made. Case discussed with admissions nurse Viky. * Palliative care contact information has been provided to patient and daughter. * Palliative care will continue to follow-up for further clarifications of goals of care as pt's clinical course continues to evolve. . Time Spent Total Floor Time (mins): 38 (Total time to include review of medical records, physical exam, goals of care conversation with patient and daughter.) >50% Counseling/Coord of Care: Yes Attestation To help prompt me to consider important information that might be impacting today's encounter and assessment, information from prior notes written by myself or my colleagues may have been "brought forward" into today's note. My signature on this note, however, is an attestation that I personally performed the exam, history, and/or decision-making noted today, and, unless otherwise indicated, the interactions with patient, family, and staff as well as the review of records all occurred today. I also attest that the listed assessment and stated plan reflect my best clinical judgment today based on the combination of historical information, prior notes, and today's exam/ interactions. When time spent is documented, it refers only to time spent today by the signer, or if indicated, combined time spent today by collaborating physician/nurse practitioner. Merle Tamayo Mar 30, 2017 13:43
--- NOTE | 2017-03-30 13:50 | HHI.PR ---
Subjective Remarks Follow-up atrial fibrillation/systolic CHF exacerbation/GI bleed/questionable early dementia 03/30/17-patient seen and examined him alert and oriented. Patient still reported GI bleed however does not want any procedure to be performed. Her nurse report, overnight patient went to [facility] but did refuse her medications, however she took her medicines this morning. She denies any heart palpitation, chest pain or shortness of breath. Case was discussed with hematology Objective Vitals Vital Signs Date Time Temp Pulse Resp B/P (MAP) Pulse Ox O2 Delivery O2 Flow Rate FiO2 03/30/17 12:00 96.2 78 20 105/52 (69) 97 03/30/17 08:00 97.0 95 21 104/58 (73) 96 03/30/17 04:05 97.0 98 18 124/65 (84) 96 03/29/17 23:20 98.5 105 18 147/75 (99) 97 03/29/17 20:00 98.5 87 18 106/56 (73) 96 03/29/17 14:57 97.9 80 16 130/67 (88) 94 I/O 03/29/17 03/29/17 03/29/17 03/30/17 03/30/17 03/30/17 07:00 15:00 23:00 07:00 15:00 23:00 Intake Total 720 ml 220 ml Output Total 6 ml Balance 714 ml 220 ml Intake Oral 720 ml 220 ml Output Urine Total 6 ml # Voids 2 2 3 # Bowel Movements 1 0 Result Diagram: 03/30/17 0603/30/17 0626 Imaging Last Impressions Chest CT 03/26/17 0000 Signed Impressions: Service Date/Time: February 17:06 - CONCLUSION: 1. Small left pleural effusion. 2. Moderate cardiomegaly with no perihilar edema. 3. No evidence of mediastinal or hilar adenopathy. Jonathan Whittaker MD Abdomen/Pelvis CT 03/25/17 0000 Signed Impressions: Service Date/Time: Saturday, March 25, 2017 12:57 - CONCLUSION: Extensive alex hepatis and pericaval adenopathy that would be difficult to address percutaneously given its location without biopsy through the right lobe of the liver or vena cava. Mundo Fernando MD FACR Tibia/Fibula X-Ray 03/23/17 1834 Signed Impressions: Service Date/Time: Thursday, March 23, 2017 19:14 - CONCLUSION: No acute abnormality is seen. Anand Cook MD Head CT 03/23/178 Signed Impressions: Service Date/Time: Thursday, March 23, 2017 19:18 - CONCLUSION: 1. No acute abnormality is seen. 2. Atrophy. Anand Cook MD Chest X-Ray 03/23/171827 Signed Impressions: Service Date/Time: Thursday, March 23, 2017 19:05 - CONCLUSION: Cardiomegaly with prominence of the interstitial markings diffusely representing pulmonary venous hypertension or mild edema. Anand Cook MD Lumbar Spine X-Ray 03/23/17 0000 Signed Impressions: Service Date/Time: Thursday, March 23, 2017 19:09 - CONCLUSION: Mild degenerative change. Anand Cook MD Objective Remarks GENERAL: NAD SKIN: Warm and dry. HEAD: Normocephalic. EYES: No scleral icterus. No injection or drainage. NECK: Supple, trachea midline. No JVD or lymphadenopathy. CARDIOVASCULAR: Irregular Regular rate and rhythm without murmurs, gallops, or rubs. RESPIRATORY: Breath sounds equal bilaterally. No accessory muscle use. GASTROINTESTINAL: Abdomen soft, non-tender, nondistended. MUSCULOSKELETAL: No cyanosis, or edema. BACK: Nontender without obvious deformity. No CVA tenderness. A/P Problem List: (1) GI bleed ICD Code: K92.2 - Gastrointestinal hemorrhage, unspecified Status: Acute (2) CHF (congestive heart failure) ICD Code: I50.9 - Heart failure, unspecified Status: Acute (3) Generalized weakness ICD Code: R53.1 - Weakness Status: Acute (4) Acute systolic (congestive) heart failure ICD Code: I50.21 - Acute systolic (congestive) heart failure Assessment and Plan 89-year-old female with GI bleed with Symptomatic Anemia - Patient received 2 units of PRBC. H&H improved and remained stable. -patient and her daughter have refused any procedure including panendoscopy -Abdominal CT revealed alex hepatitis and pericaval lymphadenopathy concerning for lymphoma. Extensive alex hepatitis and pericaval lymphadenopathy concerning for lymphoma: Appreciate input from Oncology Vomiting and patient have refused any biopsy of adenopathy. Palliative care medicine follow-up Consult hospice Acute systolic CHF Exacerbation Appreciate input from cardiology however patient is a poor candidate for revascularization, and they have refused any studies including Lexiscan 2D echo showed LVEF of 35-40%. Continue metoprolol, low dose Lasix and JOHN inhibitor. Possible early dementia: Patient appeared to still have capacity to designate a healthcare surrogate. Physical deconditioning, suspected related to anemia and CHF -PT following. -Case management following Hypothyroidism -Continued home medications levothyroxine Hypertension, chronic -Continued home medications metoprolol DVT prophylaxis: SCDs, hold chemical prophylaxis due to gi bleed GI prophylaxis: Protonix Problem Qualifiers (1) GI bleed: Qualified Codes: K92.2 - Gastrointestinal hemorrhage, unspecified (2) CHF (congestive heart failure): Qualified Codes: I50.9 - Heart failure, unspecified Alex Voss MD Mar 30, 2017 13:50
[2017-03-31 04:00] VITALS: BP 111/69; PULSE 91; RESP 15; TEMP 97; O2SAT 98
[2017-03-31] MEDS: LEVOTHYROXINE SODIUM 50 MCG TAB PO SCH (05:44)
[2017-03-31 07:47] VITALS: BP 113/62; PULSE 100; RESP 16; TEMP 95.6; O2SAT 99
[2017-03-31] MEDS: METOPROLOL TARTRATE 50 MG TAB PO SCH ×2 (08:19→20:34)
[2017-03-31] MEDS: LISINOPRIL 5 MG TAB PO SCH (08:19)
[2017-03-31] MEDS: PANTOPRAZOLE SOD 40 MG DELAYED RELEASE TAB PO SCH (08:19)
[2017-03-31] MEDS: FUROSEMIDE 20 MG TAB PO SCH (08:19)
[2017-03-31] MEDS: ACETAMINOPHEN 325 MG TAB PO PRN (08:21)
--- NOTE | 2017-03-31 10:55 | HHI.GIFU ---
Subjective Remarks Resting in bed. No active bleeding. No complaints. Decided that she does not want any GI workup for anemia. Objective Vitals I&O Vital Signs Date Time Temp Pulse Resp B/P (MAP) Pulse Ox O2 Delivery O2 Flow Rate FiO2 03/31/17 07:47 95.6 100 16 113/62 (79) 99 03/31/17 04:00 97.0 91 15 111/69 (83) 98 03/30/17 23:41 96.7 99 17 108/56 (73) 96 03/30/17 20:00 96 03/30/17 19:00 96.6 96 17 99/68 (78) 99 03/30/17 16:00 97.1 86 19 109/64 (79) 96 03/30/17 12:00 96.2 78 20 105/52 (69) 97 I/O 03/30/17 03/30/17 03/30/17 03/31/17 03/31/17 03/31/17 07:00 15:00 23:00 07:00 15:00 23:00 Intake Total 220 ml 431 ml 480 ml 480 ml Output Total 625 ml Balance 220 ml -194 ml 480 ml 480 ml Intake Oral 220 ml 431 ml 480 ml 480 ml Output Urine Total 625 ml # Voids 3 4 3 2 # Bowel Movements 0 0 0 Laboratory Date/Time Source Procedure Growth Status 03/23/17 18:40 Blood Peripheral Aerobic Blood Culture - Final NO GROWTH IN 5 DAYS Complete 03/23/17 18:40 Blood Peripheral Anaerobic Blood Culture - Final NO GROWTH IN 5 DAYS Complete Imaging Last Impressions Chest CT 03/26/17 0000 Signed Impressions: Service Date/Time: February 17:06 - CONCLUSION: 1. Small left pleural effusion. 2. Moderate cardiomegaly with no perihilar edema. 3. No evidence of mediastinal or hilar adenopathy. Jonathan Whittaker MD Abdomen/Pelvis CT 03/25/17 0000 Signed Impressions: Service Date/Time: Saturday, March 25, 2017 12:57 - CONCLUSION: Extensive alex hepatis and pericaval adenopathy that would be difficult to address percutaneously given its location without biopsy through the right lobe of the liver or vena cava. Mundo Fernando MD FACR Tibia/Fibula X-Ray 03/23/17 5530 Signed Impressions: Service Date/Time: Thursday, March 23, 2017 19:14 - CONCLUSION: No acute abnormality is seen. nAand Cook MD Head CT 03/23/17 1828 Signed Impressions: Service Date/Time: Thursday, March 23, 2017 19:18 - CONCLUSION: 1. No acute abnormality is seen. 2. Atrophy. Anand Cook MD Chest X-Ray 03/23/17 1828 Signed Impressions: Service Date/Time: Thursday, March 23, 2017 19:05 - CONCLUSION: Cardiomegaly with prominence of the interstitial markings diffusely representing pulmonary venous hypertension or mild edema. Anand Cook MD Lumbar Spine X-Ray 03/23/17 0000 Signed Impressions: Service Date/Time: Thursday, March 23, 2017 19:09 - CONCLUSION: Mild degenerative change. Anand Cook MD Physical Exam HEENT: Normocephalic; atraumatic; no jaundice. CHEST: CTA CARDIAC: RRR ABDOMEN: Soft, nondistended, nontender; no hepatosplenomegaly; bowel sounds are present in all four quadrants. EXTREMITIES: No clubbing, cyanosis, or edema. SKIN: Multiple ecchymotic areas BUE. MOLD ENGRAVER: No focal deficits; alert and oriented times three. Assessment and Plan Plan ASSESSMENT: - Anemia with Hemoccult. She was noted to be anemic and transfused 3 weeks ago at [facility]. No GI symptoms. Never had egd/colonoscopy. Denies any history of PUD. CT Abdomen and pelvis with iv contrast (03/25/17)- --> Extensive alex hepatis and percaval adenopathy that would be difficult to address percutaneously given its location without biopsy through the right lobe of the liver or vena cava. Oncology following. S/P 2 units PRBC. HH stable at 10.6/32.2. Decided against GI workup for anemia. - Abn. Wt. Loss. 50 lb weight loss in past [address] with extensive alex hepatis and pericaval adenopathy. Oncology following Refusing egd/colon today - CHF, Cardiology following, refusing stress test PLAN: - Heart healthy diet - Monitor labs - Transfuse as necessary - Stool test for H Pylori, if positive, will treat for two weeks with triple therapy. - Supportive care - Further recommendations to follow based on results of above Jennifer Marc Mar 31, 2017 10:55
[2017-03-31 11:51] VITALS: BP 99/57; PULSE 78; RESP 17; TEMP 95.9; O2SAT 98
--- NOTE | 2017-03-31 14:04 | HHI.PR ---
Subjective Remarks Follow-up atrial fibrillation/systolic CHF exacerbation/GI bleed/questionable early dementia 03/30/17-patient seen and examined him alert and oriented. Patient still reported GI bleed however does not want any procedure to be performed. Her nurse report, overnight patient went to [facility] but did refuse her medications, however she took her medicines this morning. She denies any heart palpitation, chest pain or shortness of breath. Case was discussed with hematology 03/31/17-delay entry. Patient was seen and examined earlier this morning, no acute event overnight Objective Vitals Vital Signs Date Time Temp Pulse Resp B/P (MAP) Pulse Ox O2 Delivery O2 Flow Rate FiO2 03/31/17 11:51 95.9 78 17 99/57 (71) 98 03/31/17 07:47 95.6 100 16 113/62 (79) 99 03/31/17 04:00 97.0 91 15 111/69 (83) 98 03/30/17 23:41 96.7 99 17 108/56 (73) 96 03/30/17 20:00 96 03/30/17 19:00 96.6 96 17 99/68 (78) 99 03/30/17 16:00 97.1 86 19 109/64 (79) 96 I/O 03/30/17 03/30/17 03/30/17 03/31/17 03/31/17 03/31/17 07:00 15:00 23:00 07:00 15:00 23:00 Intake Total 220 ml 431 ml 480 ml 480 ml 200 ml Output Total 625 ml Balance 220 ml -194 ml 480 ml 480 ml 200 ml Intake Oral 220 ml 431 ml 480 ml 480 ml 200 ml Output Urine Total 625 ml # Voids 3 4 3 2 # Bowel Movements 0 0 0 Result Diagram: 03/30/1762503/30/17625 Objective Remarks GENERAL: NAD SKIN: Warm and dry. HEAD: Normocephalic. EYES: No scleral icterus. No injection or drainage. NECK: Supple, trachea midline. No JVD or lymphadenopathy. CARDIOVASCULAR: Irregular Regular rate and rhythm without murmurs, gallops, or rubs. RESPIRATORY: Breath sounds equal bilaterally. No accessory muscle use. GASTROINTESTINAL: Abdomen soft, non-tender, nondistended. MUSCULOSKELETAL: No cyanosis, or edema. BACK: Nontender without obvious deformity. No CVA tenderness. A/P Problem List: (1) GI bleed ICD Code: K92.2 - Gastrointestinal hemorrhage, unspecified Status: Acute (2) CHF (congestive heart failure) ICD Code: I50.9 - Heart failure, unspecified Status: Acute (3) Generalized weakness ICD Code: R53.1 - Weakness Status: Acute (4) Acute systolic (congestive) heart failure ICD Code: I50.21 - Acute systolic (congestive) heart failure Assessment and Plan 89-year-old female with GI bleed with Symptomatic Anemia - Patient received 2 units of PRBC. H&H improved and remained stable. -patient and her daughter have refused any procedure including panendoscopy -Abdominal CT revealed alex hepatitis and pericaval lymphadenopathy concerning for lymphoma. Extensive alex hepatitis and pericaval lymphadenopathy concerning for lymphoma: Appreciate input from Oncology Vomiting and patient have refused any biopsy of adenopathy. Palliative care medicine follow-up Consult hospice appreciated Acute systolic CHF Exacerbation Appreciate input from cardiology however patient is a poor candidate for revascularization, and they have refused any studies including Lexiscan 2D echo showed LVEF of 35-40%. Continue metoprolol, low dose Lasix and JOHN inhibitor. Possible early dementia: Patient appeared to still have capacity to designate a healthcare surrogate. Physical deconditioning, suspected related to anemia and CHF -PT following. -Case management following Hypothyroidism -Continued home medications levothyroxine Hypertension, chronic -Continued home medications metoprolol DVT prophylaxis: SCDs, hold chemical prophylaxis due to gi bleed GI prophylaxis: Protonix Problem Qualifiers (1) GI bleed: Qualified Codes: K92.2 - Gastrointestinal hemorrhage, unspecified (2) CHF (congestive heart failure): Qualified Codes: I50.9 - Heart failure, unspecified Alex Voss MD Mar 31, 2017 14:04
--- NOTE | 2017-03-31 15:10 | HHI.HCPN ---
Reason for visit a. To assist with evaluation and management of symptoms including: Debility. b. To assist medical decision maker(s) with: better understanding of current medical conditions; weighing benefits/burdens of medical treatment options; making medical treatment decisions. . Subjective/Interval History Mrs. Santos dates an 89-year-old female with a medical history of hypertension, hypothyroidism and anemia percentage to the emergency room on 03/23/17 for evaluation of generalized weakness/fatigue. As per patient, she has been reporting worsening weakness/debility for the past few days to weeks. Frequent falls at home. Reports of recent blood transfusion at [facility]. On admission Hgb 8.0, repeat Hgb 7.2. Patient received 2 units of PRBC. Patient was admitted for further management. Palliative care has been consulted for further clarifications of goals of care. Patient seen in her room. She was resting in bed in no acute distress. Denies pain, shortness of breath, nausea/vomiting or abdominal discomfort. Daughter Eve at bedside. Daughter reports that patient's appetite has improved. No new laboratory or imaging for review. Patient remains afebrile, stable hemodynamically. Tolerating room air with oxygen saturation in the high 90s. Met with patient, her daughter Eve, Dr. Voss and hospice admissions nurse Nichelle. Discussed hospice philosophy and benefits to include comfort-directed care services. All questions by daughter regarding hospice benefits and services have been answered in great detail. Daughter verbalized wishing to further discuss GOC with her brother Jameson who will be arriving to [place] tomorrow. She has requested for palliative care and hospice to continue to follow-up. . Family/friend interactions See interval note. . Advance Directives Living Will: Copy in medical record Health Care Surrogate: Copy in medical record Advance Directive Specifics Date completed: 03/27/17. Health Care Surrogate(s): Patient designated her daughter Eve Santos as healthcare surrogate decision- maker, alternate son Jameson Santos. . Documented care wishes: Living will with standard verbiage as it pertains to artificial means of life support. . Significant change in goals: No code. DNR/DNI. Continue conservative management short of no code. Patient and family receptive to continue blood transfusions as clinically indicated. Patient and family considering discharge with hospice. . Objective Vital Signs Date Time Temp Pulse Resp B/P (MAP) Pulse Ox O2 Delivery O2 Flow Rate FiO2 03/31/17 11:51 95.9 78 17 99/57 (71) 98 03/31/17 07:47 95.6 100 16 113/62 (79) 99 03/31/17 04:00 97.0 91 15 111/69 (83) 98 03/30/17 23:41 96.7 99 17 108/56 (73) 96 03/30/17 20:00 96 03/30/17 19:00 96.6 96 17 99/68 (78) 99 03/30/17 16:00 97.1 86 19 109/64 (79) 96 Intake & Output 03/31/17 03/31/17 07:00 19:00 Intake Total 960 ml 440 ml Balance 960 ml 440 ml Intake Oral 960 ml 440 ml # Voids 5 3 # Bowel Movements 0 1 Physical Exam CONSTITUTIONAL/GENERAL: This is a frail, elderly female sitting up in chair in no acute distress. TUBES/LINES/DRAINS: PIV. SKIN: No jaundice, rashes. Large areas of ecchymoses on all extremities. Scattered scabs on left upper arm and right lower leg. Skin temperature appropriate. Not diaphoretic. HEAD: Atraumatic. Normocephalic. Bilateral temporal wasting noted. EYES: Pupils equal and round and reactive. Extraocular motions intact. No scleral icterus. No injection or drainage. ENT: Hearing grossly normal. Nose without bleeding or purulent drainage. Moist oral mucosa. NECK: Trachea midline. Supple, nontender. CARDIOVASCULAR: Irregular rate and rhythm. No JVD. Peripheral pulses symmetric. RESPIRATORY/CHEST: Symmetric, unlabored respirations. Clear to auscultation. Breath sounds equal bilaterally. No wheezes, rales, or rhonchi. GASTROINTESTINAL: Abdomen soft, non-tender, nondistended. No guarding. Bowel sounds present. GENITOURINARY: Without palpable bladder distension. MUSCULOSKELETAL: Extremities without clubbing, cyanosis, or edema. Muscular atrophy to all 4 extremities. NEUROLOGICAL: Awake and alert x self, place and situation. Confused at times. Moves all extremities. Follows commands. PSYCHIATRIC: No obvious anxiety/depression. Pleasant and cooperative. . Diagnostic Tests Laboratory Laboratory Tests Test 03/28/17 19:19 03/29/17 05:38 03/29/17 16:00 03/30/17 06:26 White Blood Count 8.4 TH/MM3 (4.0-11.0) 8.2 TH/MM3 (4.0-11.0) 8.2 TH/MM3 (4.0-11.0) Red Blood Count 3.85 MIL/MM3 (4.00-5.30) 3.85 MIL/MM3 (4.00-5.30) 3.91 MIL/MM3 (4.00-5.30) Hemoglobin 10.4 GM/DL (11.6-15.3) 10.4 GM/DL (11.6-15.3) 10.6 GM/DL (11.6-15.3) Hematocrit 31.7 % (35.0-46.0) 31.5 % (35.0-46.0) 32.2 % (35.0-46.0) Mean Corpuscular Volume 82.3 FL (80.0-100.0) 81.8 FL (80.0-100.0) 82.4 FL (80.0-100.0) Mean Corpuscular Hemoglobin 27.1 PG (27.0-34.0) 27.1 PG (27.0-34.0) 27.2 PG (27.0-34.0) Mean Corpuscular Hemoglobin Concent 32.9 % (32.0-36.0) 33.1 % (32.0-36.0) 33.0 % (32.0-36.0) Red Cell Distribution Width 18.2 % (11.6-17.2) 18.1 % (11.6-17.2) 18.0 % (11.6-17.2) Platelet Count 354 TH/MM3 (150-450) 397 TH/MM3 (150-450) 384 TH/MM3 (150-450) Mean Platelet Volume 7.2 FL (7.0-11.0) 7.3 FL (7.0-11.0) 7.5 FL (7.0-11.0) Neutrophils (%) (Auto) 78.2 % (16.0-70.0) 75.2 % (16.0-70.0) 76.2 % (16.0-70.0) Lymphocytes (%) (Auto) 5.4 % (9.0-44.0) 4.8 % (9.0-44.0) 5.3 % (9.0-44.0) Monocytes (%) (Auto) 11.3 % (0.0-8.0) 12.3 % (0.0-8.0) 12.0 % (0.0-8.0) Eosinophils (%) (Auto) 4.1 % (0.0-4.0) 6.3 % (0.0-4.0) 5.7 % (0.0-4.0) Basophils (%) (Auto) 1.0 % (0.0-2.0) 1.4 % (0.0-2.0) 0.8 % (0.0-2.0) Neutrophils # (Auto) 6.6 TH/MM3 (1.8-7.7) 6.2 TH/MM3 (1.8-7.7) 6.3 TH/MM3 (1.8-7.7) Lymphocytes # (Auto) 0.5 TH/MM3 (1.0-4.8) 0.4 TH/MM3 (1.0-4.8) 0.4 TH/MM3 (1.0-4.8) Monocytes # (Auto) 1.0 TH/MM3 (0-0.9) 1.0 TH/MM3 (0-0.9) 1.0 TH/MM3 (0-0.9) Eosinophils # (Auto) 0.3 TH/MM3 (0-0.4) 0.5 TH/MM3 (0-0.4) 0.5 TH/MM3 (0-0.4) Basophils # (Auto) 0.1 TH/MM3 (0-0.2) 0.1 TH/MM3 (0-0.2) 0.1 TH/MM3 (0-0.2) CBC Comment DIFF FINAL DIFF FINAL DIFF FINAL Differential Comment Blood Urea Nitrogen 19 MG/DL (7-18) Creatinine 1.28 MG/DL (0.50-1.00) Random Glucose 90 MG/DL (74-106) Calcium Level 8.8 MG/DL (8.5-10.1) Magnesium Level 2.4 MG/DL (1.5-2.5) Sodium Level 130 MEQ/L (136-145) Potassium Level 3.9 MEQ/L (3.5-5.1) Chloride Level 94 MEQ/L (98-107) Carbon Dioxide Level 26.1 MEQ/L (21.0-32.0) Anion Gap 10 MEQ/L (5-15) Estimat Glomerular Filtration Rate 39 ML/MIN (>89) Result Diagram: 03/30/1762503/30/17625 Assessment and Plan Disease Oriented Problem List: (1) GI bleed (2) CHF (congestive heart failure) (3) Atrial fibrillation (4) Confusion (5) Frequent falls (6) Physical deconditioning Symptom Scale: (1) Debility 0-10 Scale: Unable to quantify Comment: Progressive. Worsened during the past 3 months. . Pertinent Non-Medical Issues Psychosocial: Patient originally from the [place]. Moved to [place] 59 years ago. In [place] for the past 37 years. Patient is , her 4 years ago. Patient has one daughter who lives in [place] and one son who lives in [facility]. 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 Spiritual: Legal: Advance directives reported as completed many years ago. Patient nor daughter have any copies. Patient interested in completion AD while inpatient. Ethical issues impacting care: Patient participating in medical decision-making , periods of confusion. Palliative care recommends shared decision-making with daughter. . Important Contacts Daughter Eve Santos [phone] Son Jameson Santos & . . Prognosis Mrs. Santos dates an 89-year-old female with a medical history of hypertension, hypothyroidism and anemia percentage to the emergency room on 03/23/17 for evaluation of generalized weakness/fatigue. As per patient, she has been reporting worsening weakness/debility for the past few days to weeks. Frequent falls at home. Reports of recent treatment at [facility] secondary to anemia where she received blood transfusion. Abdomen/pelvis CT revealing lymphadenopathy, concerns of lymphoma. Patient very high risk for further complications, continue decline and given progressive physical decline, chronic comorbidities and acute events. . Code Status: No Code Plan * CODE STATUS: Patient and daughter electing DNR/DNI. Community DNR introduced , patient to complete prior to discharge. * HEALTHCARE DECISION-MAKING: Patient participating in medical decision-making, periods of confusion. Concerns regarding patient's full understanding of her clinical condition and her ability to weight the risks and burdens of treatment options -questionable dementia. Patient designated her daughter Eve Santos as healthcare surrogate decision-maker, alternate son Jameson Santos. * Palliative care recommends shared decision-making with daughter Eve/DANIAL. * GOALS OF CARE: Continue conservative management short of no code. Patient electing to continue blood transfusions as clinically indicated. Hospice philosophy and benefits has been introduced, Patient and family considering discharge to [facility] with hospice. Son Jameson to arrive to [place] 04/01/17 for continuation of goals of care discussion. * SYMPTOMS: = Debility, progressive. Worsen for the past 3 months. Frequent recent falls at home. Patient verbalized not being able to return to independent living given generalized decline. SNF vs [facility] upon discharge. PT following. * Case discussed with Hospice admissions nurse Savi and Dr Voss. * Palliative care contact information has been provided to patient and daughter. * Palliative care will continue to follow-up for further clarifications of goals of care as pt's clinical course continues to evolve. . Time Spent Total Floor Time (mins): 41 (Total time to include review medical records, physical exam, goals of care discussion with patient and daughter, case discussion with material stress tester Nichelle.) >50% Counseling/Coord of Care: Yes Attestation To help prompt me to consider important information that might be impacting today's encounter and assessment, information from prior notes written by myself or my colleagues may have been "brought forward" into today's note. My signature on this note, however, is an attestation that I personally performed the exam, history, and/or decision-making noted today, and, unless otherwise indicated, the interactions with patient, family, and staff as well as the review of records all occurred today. I also attest that the listed assessment and stated plan reflect my best clinical judgment today based on the combination of historical information, prior notes, and today's exam/ interactions. When time spent is documented, it refers only to time spent today by the signer, or if indicated, combined time spent today by collaborating physician/nurse practitioner. Merle Tamayo Mar 31, 2017 15:10
[2017-03-31 15:55] VITALS: BP 90/56; PULSE 71; RESP 17; TEMP 95.6; O2SAT 97
[2017-03-31 19:29] VITALS: BP 115/58; PULSE 80; RESP 17; TEMP 96.7; O2SAT 92
[2017-03-31] MEDS: SODIUM CHLORIDE 0.9% FLUSH 10 ML FLUSH IV FLUSH SCH (20:35)
[2017-04-01 00:16] VITALS: BP 125/57; PULSE 83; RESP 17; TEMP 96.7; O2SAT 94
[2017-04-01 04:15] VITALS: BP 94/50; PULSE 87; RESP 18; TEMP 96.9; O2SAT 95
[2017-04-01] MEDS: LEVOTHYROXINE SODIUM 50 MCG TAB PO SCH (04:23)
[2017-04-01 08:00] VITALS: BP 101/56; PULSE 88; RESP 19; TEMP 95.9; O2SAT 99
[2017-04-01] MEDS: LISINOPRIL 5 MG TAB PO SCH (08:45)
[2017-04-01] MEDS: PANTOPRAZOLE SOD 40 MG DELAYED RELEASE TAB PO SCH (08:45)
[2017-04-01] MEDS: FUROSEMIDE 20 MG TAB PO SCH (08:45)
[2017-04-01] MEDS: METOPROLOL TARTRATE 50 MG TAB PO SCH ×2 (08:46→21:25)
[2017-04-01] MEDS: SODIUM CHLORIDE 0.9% FLUSH 10 ML FLUSH IV FLUSH SCH ×2 (08:48→20:11)
[2017-04-01 11:54] VITALS: BP 100/56; PULSE 78; RESP 19; TEMP 95.6; O2SAT 95
--- NOTE | 2017-04-01 12:40 | HHI.PR ---
Subjective Remarks Follow-up atrial fibrillation/systolic CHF exacerbation/GI bleed/questionable early dementia 03/30/17-patient seen and examined him alert and oriented. Patient still reported GI bleed however does not want any procedure to be performed. Her nurse report, overnight patient went to A. fib but did refuse her medications, however she took her medicines this morning. She denies any heart palpitation, chest pain or shortness of breath. Case was discussed with hematology 03/31/17-delay entry. Patient was seen and examined earlier this morning, no acute event overnight 04/01/17-patient seen and examined, no acute event overnight and stable. H&H stable and no report of GI bleed. Daughter is still considering hospice Objective Vitals Vital Signs Date Time Temp Pulse Resp B/P (MAP) Pulse Ox O2 Delivery O2 Flow Rate FiO2 04/01/17 11:54 95.6 78 19 100/56 (71) 95 04/01/17 08:00 95.9 88 19 101/56 (71) 99 04/01/17 04:15 96.9 87 18 94/50 (65) 95 04/01/17 00:16 96.7 83 17 125/57 (79) 94 03/31/17 19:29 96.7 80 17 115/58 (77) 92 03/31/17 15:55 95.6 71 17 90/56 (67) 97 I/O 03/31/17 03/31/17 03/31/17 04/01/17 04/01/17 04/01/17 07:00 15:00 23:00 07:00 15:00 23:00 Intake Total 480 ml 440 ml 200 ml 100 ml Output Total 200 ml Balance 480 ml 440 ml 0 ml 100 ml Intake Oral 480 ml 440 ml 200 ml 100 ml Output Urine Total 200 ml # Voids 2 3 2 2 # Bowel Movements 0 1 0 0 Result Diagram: 03/30/1762503/30/17625 Objective Remarks GENERAL: NAD SKIN: Warm and dry. HEAD: Normocephalic. EYES: No scleral icterus. No injection or drainage. NECK: Supple, trachea midline. No JVD or lymphadenopathy. CARDIOVASCULAR: Irregular Regular rate and rhythm without murmurs, gallops, or rubs. RESPIRATORY: Breath sounds equal bilaterally. No accessory muscle use. GASTROINTESTINAL: Abdomen soft, non-tender, nondistended. MUSCULOSKELETAL: No cyanosis, or edema. BACK: Nontender without obvious deformity. No CVA tenderness. A/P Problem List: (1) GI bleed ICD Code: K92.2 - Gastrointestinal hemorrhage, unspecified Status: Acute (2) CHF (congestive heart failure) ICD Code: I50.9 - Heart failure, unspecified Status: Acute (3) Generalized weakness ICD Code: R53.1 - Weakness Status: Acute (4) Acute systolic (congestive) heart failure ICD Code: I50.21 - Acute systolic (congestive) heart failure Assessment and Plan 89-year-old female with GI bleed with Symptomatic Anemia - Patient received 2 units of PRBC. H&H stable -patient and her daughter have refused any procedure including panendoscopy -Abdominal CT revealed alex hepatitis and pericaval lymphadenopathy concerning for lymphoma. Extensive alex hepatitis and pericaval lymphadenopathy concerning for lymphoma: Appreciate input from Oncology Vomiting and patient have refused any biopsy of adenopathy. Palliative care medicine follow-up Hospice consultation appreciated however daughter still undecided Acute systolic CHF Exacerbation Appreciate input from cardiology however patient is a poor candidate for revascularization, and they have refused any studies including Lexiscan 2D echo showed LVEF of 35-40%. Continue metoprolol, low dose Lasix and JOHN inhibitor. Possible early dementia: Patient appeared to still have capacity to designate a healthcare surrogate. Physical deconditioning, suspected related to anemia and CHF -PT following. Hypothyroidism -Continued home medications levothyroxine Hypertension, chronic -Continued home medications metoprolol DVT prophylaxis: SCDs, hold chemical prophylaxis due to gi bleed GI prophylaxis: Protonix Problem Qualifiers (1) GI bleed: Qualified Codes: K92.2 - Gastrointestinal hemorrhage, unspecified (2) CHF (congestive heart failure): Qualified Codes: I50.9 - Heart failure, unspecified Alex Voss MD Apr 01, 2017 12:40
--- NOTE | 2017-04-01 15:00 | HHI.HCPN ---
Reason for visit a. To assist with evaluation and management of symptoms including: Debility. b. To assist medical decision maker(s) with: better understanding of current medical conditions; weighing benefits/burdens of medical treatment options; making medical treatment decisions. . Subjective/Interval History Mrs. Santos dates an 89-year-old female with a medical history of hypertension, hypothyroidism and anemia percentage to the emergency room on 03/23/17 for evaluation of generalized weakness/fatigue. As per patient, she has been reporting worsening weakness/debility for the past few days to weeks. Frequent falls at home. Reports of recent blood transfusion at [facility]. On admission Hgb 8.0, repeat Hgb 7.2. Patient received 2 units of PRBC. Patient was admitted for further management. Palliative care has been consulted for further clarifications of goals of care. Patient seen in her room. She was resting in bed in no acute distress. Denies pain, shortness of breath, nausea/vomiting or abdominal discomfort. Patient pleasant and cooperative. Patient remains afebrile, stable hemodynamically. Tolerating room air with oxygen saturation in the high 90s. No new laboratory or imaging for review. Telephone conversation with patient's daughter Eve. She tells me that her brother Jameson has just arrived to [place] from [facility]. Ongoing goals of care discussion, currently considering hospice. However, would like to meet with palliative care tomorrow to further discuss. Daughter verbalize not wishing to discharge patient to [facility] or make a definitive goals of care decision at this time given [place] forecast. She has requested for palliative care and hospice to continue to follow-up. . Family/friend interactions See interval. . Advance Directives Living Will: Copy in medical record Health Care Surrogate: Copy in medical record Advance Directive Specifics Date completed: 03/27/17. Health Care Surrogate(s): Patient designated her daughter Eve Santos as healthcare surrogate decision- maker, alternate son Jameson Santos. . Documented care wishes: Living will with standard verbiage as it pertains to artificial means of life support. . Significant change in goals: No code. DNR/DNI. Continue current conservative management short of no code. . Objective Vital Signs Date Time Temp Pulse Resp B/P (MAP) Pulse Ox O2 Delivery O2 Flow Rate FiO2 04/01/17 11:54 95.6 78 19 100/56 (71) 95 04/01/17 08:00 95.9 88 19 101/56 (71) 99 04/01/17 04:15 96.9 87 18 94/50 (65) 95 04/01/17 00:16 96.7 83 17 125/57 (79) 94 03/31/17 19:29 96.7 80 17 115/58 (77) 92 03/31/17 15:55 95.6 71 17 90/56 (67) 97 Intake & Output 04/01/17 04/01/17 06:59 18:59 Intake Total 300 ml 220 ml Output Total 200 ml Balance 100 ml 220 ml Intake Oral 300 ml 220 ml Output Urine Total 200 ml # Voids 4 2 # Bowel Movements 0 Physical Exam CONSTITUTIONAL/GENERAL: This is a frail, elderly female sitting up in chair in no acute distress. TUBES/LINES/DRAINS: PIV. SKIN: No jaundice, rashes. Large areas of ecchymoses on all extremities. Scattered scabs on left upper arm and right lower leg. Skin temperature appropriate. Not diaphoretic. HEAD: Atraumatic. Normocephalic. Bilateral temporal wasting noted. EYES: Pupils equal and round and reactive. Extraocular motions intact. No scleral icterus. No injection or drainage. ENT: Hearing grossly normal. Nose without bleeding or purulent drainage. Moist oral mucosa. NECK: Trachea midline. Supple, nontender. CARDIOVASCULAR: Irregular rate and rhythm. No JVD. Peripheral pulses symmetric. RESPIRATORY/CHEST: Symmetric, unlabored respirations. Clear to auscultation. Breath sounds equal bilaterally. No wheezes, rales, or rhonchi. GASTROINTESTINAL: Abdomen soft, non-tender, nondistended. No guarding. Bowel sounds present. GENITOURINARY: Without palpable bladder distension. MUSCULOSKELETAL: Extremities without clubbing, cyanosis, or edema. Muscular atrophy to all 4 extremities. NEUROLOGICAL: Awake and alert x self, place and situation. Confused at times. Moves all extremities. Follows commands. PSYCHIATRIC: No obvious anxiety/depression. Pleasant and cooperative. . Diagnostic Tests Laboratory Laboratory Tests Test 03/29/17 16:00 03/30/17 06:26 White Blood Count 8.2 TH/MM3 (4.0-11.0) Red Blood Count 3.91 MIL/MM3 (4.00-5.30) Hemoglobin 10.6 GM/DL (11.6-15.3) Hematocrit 32.2 % (35.0-46.0) Mean Corpuscular Volume 82.4 FL (80.0-100.0) Mean Corpuscular Hemoglobin 27.2 PG (27.0-34.0) Mean Corpuscular Hemoglobin Concent 33.0 % (32.0-36.0) Red Cell Distribution Width 18.0 % (11.6-17.2) Platelet Count 384 TH/MM3 (150-450) Mean Platelet Volume 7.5 FL (7.0-11.0) Neutrophils (%) (Auto) 76.2 % (16.0-70.0) Lymphocytes (%) (Auto) 5.3 % (9.0-44.0) Monocytes (%) (Auto) 12.0 % (0.0-8.0) Eosinophils (%) (Auto) 5.7 % (0.0-4.0) Basophils (%) (Auto) 0.8 % (0.0-2.0) Neutrophils # (Auto) 6.3 TH/MM3 (1.8-7.7) Lymphocytes # (Auto) 0.4 TH/MM3 (1.0-4.8) Monocytes # (Auto) 1.0 TH/MM3 (0-0.9) Eosinophils # (Auto) 0.5 TH/MM3 (0-0.4) Basophils # (Auto) 0.1 TH/MM3 (0-0.2) CBC Comment DIFF FINAL Differential Comment Blood Urea Nitrogen 19 MG/DL (7-18) Creatinine 1.28 MG/DL (0.50-1.00) Random Glucose 90 MG/DL (74-106) Calcium Level 8.8 MG/DL (8.5-10.1) Magnesium Level 2.4 MG/DL (1.5-2.5) Sodium Level 130 MEQ/L (136-145) Potassium Level 3.9 MEQ/L (3.5-5.1) Chloride Level 94 MEQ/L (98-107) Carbon Dioxide Level 26.1 MEQ/L (21.0-32.0) Anion Gap 10 MEQ/L (5-15) Estimat Glomerular Filtration Rate 39 ML/MIN (>89) Result Diagram: 03/30/17 0626 03/30/17 0626 Assessment and Plan Disease Oriented Problem List: (1) GI bleed (2) CHF (congestive heart failure) (3) Atrial fibrillation (4) Confusion (5) Frequent falls (6) Physical deconditioning Symptom Scale: (1) Debility 0-10 Scale: Unable to quantify Comment: Progressive. Worsened during the past 3 months. . Pertinent Non-Medical Issues Psychosocial: Patient originally from the [place]. Moved to [place] 59 years ago. In [place] for the past 37 years. Patient is , her 4 years ago. Patient has one daughter who lives in [place] and one son who lives in [facility]. 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 Spiritual: Legal: Advance directives reported as completed many years ago. Patient nor daughter have any copies. Patient interested in completion AD while inpatient. Ethical issues impacting care: Patient participating in medical decision-making , periods of confusion. Palliative care recommends shared decision-making with daughter. . Important Contacts Daughter Eve Santos [phone] Son Jameson Santos & . . Prognosis Mrs. Santos dates an 89-year-old female with a medical history of hypertension, hypothyroidism and anemia percentage to the emergency room on 03/23/17 for evaluation of generalized weakness/fatigue. As per patient, she has been reporting worsening weakness/debility for the past few days to weeks. Frequent falls at home. Reports of recent treatment at [facility] secondary to anemia where she received blood transfusion. Abdomen/pelvis CT revealing lymphadenopathy, concerns of lymphoma. Patient very high risk for further complications, continue decline and given progressive physical decline, chronic comorbidities and acute events. . Code Status: No Code Plan * CODE STATUS: Patient and daughter electing DNR/DNI. Community DNR introduced , patient to complete prior to discharge. * HEALTHCARE DECISION-MAKING: Patient participating in medical decision-making, periods of confusion. Concerns regarding patient's full understanding of her clinical condition and her ability to weight the risks and burdens of treatment options -questionable dementia. Patient designated her daughter Eve Santos as healthcare surrogate decision-maker, alternate son Jameson Santos. * Palliative care recommends shared decision-making with daughter Eve/DANIAL. * GOALS OF CARE: Ongoing family goals of care conversation. Patient's daughter has verbalize that family has elected to continue conservative management short of no code while considering hospice. Hospice philosophy and benefits has been introduced. Patient's daughter has requested for palliative care to meet with her and her brother Lad tomorrow 04/02/17 for further goals of care discussion. * SYMPTOMS: = Debility, progressive. Worsen for the past 3 months. Frequent recent falls at home. Patient verbalized not being able to return to independent living given generalized decline. SNF vs [facility] upon discharge. PT following. * Case discussed with Hospice admissions nurse Viky. * Palliative care contact information has been provided to patient and daughter. * Palliative care will continue to follow-up for further clarifications of goals of care as pt's clinical course continues to evolve. . Time Spent Total Floor Time (mins): 24 (Total time to include review medical records, physical exam, telephone conversation with patient's daughter and case reviewed with hospice doughnut maker Viky. ) >50% Counseling/Coord of Care: Yes Attestation To help prompt me to consider important information that might be impacting today's encounter and assessment, information from prior notes written by myself or my colleagues may have been "brought forward" into today's note. My signature on this note, however, is an attestation that I personally performed the exam, history, and/or decision-making noted today, and, unless otherwise indicated, the interactions with patient, family, and staff as well as the review of records all occurred today. I also attest that the listed assessment and stated plan reflect my best clinical judgment today based on the combination of historical information, prior notes, and today's exam/ interactions. When time spent is documented, it refers only to time spent today by the signer, or if indicated, combined time spent today by collaborating physician/nurse practitioner. Merle Tamayo Apr 01, 2017 15:00
[2017-04-01 15:56] VITALS: BP 97/52; PULSE 80; RESP 19; TEMP 95.8; O2SAT 97
[2017-04-01 20:00] VITALS: BP 100/53; PULSE 101; RESP 17; TEMP 96.7; O2SAT 92
[2017-04-01] MEDS ORDERED: METOPROLOL TARTRATE 25 MG TAB PO ONE (21:00)
[2017-04-02] VITALS (8 sets, daily range): BP systolic 88–110; BP diastolic 50–154; PULSE 75–99; RESP 16–17; TEMP 96.1–98.2; O2SAT 86–100
[2017-04-02] MEDS: LEVOTHYROXINE SODIUM 50 MCG TAB PO SCH (04:43)
[2017-04-02] MEDS: FUROSEMIDE 20 MG TAB PO SCH ×2 (09:58→10:01)
[2017-04-02] MEDS: LISINOPRIL 5 MG TAB PO SCH (09:58)
[2017-04-02] MEDS: PANTOPRAZOLE SOD 40 MG DELAYED RELEASE TAB PO SCH ×2 (09:58→10:00)
[2017-04-02] MEDS: METOPROLOL TARTRATE 50 MG TAB PO SCH ×2 (09:59→20:50)
[2017-04-02] MEDS: SODIUM CHLORIDE 0.9% FLUSH 10 ML FLUSH IV FLUSH SCH ×2 (10:01→20:50)
--- NOTE | 2017-04-02 12:04 | HHI.PR ---
Subjective Remarks Follow-up atrial fibrillation/systolic CHF exacerbation/GI bleed/questionable early dementia 03/30/17-patient seen and examined him alert and oriented. Patient still reported GI bleed however does not want any procedure to be performed. Her nurse report, overnight patient went to A. fib but did refuse her medications, however she took her medicines this morning. She denies any heart palpitation, chest pain or shortness of breath. Case was discussed with hematology 03/31/17-delay entry. Patient was seen and examined earlier this morning, no acute event overnight 04/01/17-patient seen and examined, no acute event overnight and stable. H&H stable and no report of GI bleed. Daughter is still considering hospice 04/02/17-patient seen and examined, no acute event overnight. Denies any GI bleed. BP soft. Family is not considering hospice, will have a meeting with hospice staff this afternoon Objective Vitals Vital Signs Date Time Temp Pulse Resp B/P (MAP) Pulse Ox O2 Delivery O2 Flow Rate FiO2 04/02/17 08:00 96.3 84 17 88/53 (65) 96 04/02/17 04:19 97.2 80 16 95/50 (65) 98 04/02/17 00:47 97.0 75 16 99/54 (69) 100 04/01/17 20:00 96.7 101 17 100/53 (69) 92 04/01/17 15:56 95.8 80 19 97/52 (67) 97 I/O 04/01/17 04/01/17 04/01/17 04/02/17 04/02/17 04/02/17 07:00 15:00 23:00 07:00 15:00 23:00 Intake Total 100 ml 220 ml 480 ml 240 ml Balance 100 ml 220 ml 480 ml 240 ml Intake Oral 100 ml 220 ml 480 ml 240 ml # Voids 2 2 5 1 # Bowel Movements 0 0 0 Result Diagram: 03/30/1762503/30/17625 Objective Remarks GENERAL: NAD SKIN: Warm and dry. HEAD: Normocephalic. EYES: No scleral icterus. No injection or drainage. NECK: Supple, trachea midline. No JVD or lymphadenopathy. CARDIOVASCULAR: Irregular Regular rate and rhythm without murmurs, gallops, or rubs. RESPIRATORY: Breath sounds equal bilaterally. No accessory muscle use. GASTROINTESTINAL: Abdomen soft, non-tender, nondistended. MUSCULOSKELETAL: No cyanosis, or edema. BACK: Nontender without obvious deformity. No CVA tenderness. A/P Problem List: (1) GI bleed ICD Code: K92.2 - Gastrointestinal hemorrhage, unspecified Status: Acute (2) CHF (congestive heart failure) ICD Code: I50.9 - Heart failure, unspecified Status: Acute (3) Generalized weakness ICD Code: R53.1 - Weakness Status: Acute (4) Acute systolic (congestive) heart failure ICD Code: I50.21 - Acute systolic (congestive) heart failure Assessment and Plan 89-year-old female with GI bleed with Symptomatic Anemia - Patient received 2 units of PRBC. H&H stable -patient and her daughter have refused any procedure including panendoscopy -Abdominal CT revealed alex hepatitis and pericaval lymphadenopathy concerning for lymphoma. Extensive alex hepatitis and pericaval lymphadenopathy concerning for lymphoma: Appreciate input from Oncology Vomiting and patient have refused any biopsy of adenopathy. Palliative care medicine follow-up Hospice consultation appreciated, although the family to decide on hospice discharged today 04/02/17 Acute systolic CHF Exacerbation Appreciate input from cardiology however patient is a poor candidate for revascularization, and they have refused any studies including Lexiscan 2D echo showed LVEF of 35-40%. Continue metoprolol, low dose Lasix and JOHN inhibitor. Possible early dementia: Patient appeared to still have capacity to designate a healthcare surrogate. Physical deconditioning, suspected related to anemia and CHF -PT following. Hypothyroidism -Continued home medications levothyroxine Hypertension, chronic -Currently on Lopressor, however secondary to low BP will hold the medication with holding parameters DVT prophylaxis: SCDs, hold chemical prophylaxis due to gi bleed GI prophylaxis: Protonix Problem Qualifiers (1) GI bleed: Qualified Codes: K92.2 - Gastrointestinal hemorrhage, unspecified (2) CHF (congestive heart failure): Qualified Codes: I50.9 - Heart failure, unspecified Alex Voss MD Apr 02, 2017 12:04
[2017-04-02] MEDS ORDERED: ONDANSETRON HCL 4 MG/2 ML VIAL IV PRN (12:15)
--- NOTE | 2017-04-02 13:55 | HHI.HCPN ---
Reason for visit a. To assist with evaluation and management of symptoms including: Debility. b. To assist medical decision maker(s) with: better understanding of current medical conditions; weighing benefits/burdens of medical treatment options; making medical treatment decisions. . Subjective/Interval History Mrs. Santos dates an 89-year-old female with a medical history of hypertension, hypothyroidism and anemia percentage to the emergency room on 03/23/17 for evaluation of generalized weakness/fatigue. As per patient, she has been reporting worsening weakness/debility for the past few days to weeks. Frequent falls at home. Reports of recent blood transfusion at [facility]. On admission Hgb 8.0, repeat Hgb 7.2. Patient received 2 units of PRBC. Patient was admitted for further management. Palliative care has been consulted for further clarifications of goals of care. Patient seen in her room. She was resting in bed in no acute distress. Denies pain, shortness of breath, nausea/vomiting or abdominal discomfort. Verbalized feeling weak. Patient remains afebrile, hypotensive with SBP in the 90s. Tolerating room air with oxygen saturation in the high 90s. No new laboratory or imaging for review. Case discussed with Dr. Voss and bedside RN. . Family/friend interactions Family meeting. In attendance patient's daughter Eve, son Lad, palliative care team Merle DARNELL, CARIE Torres and homicide squad commanding officer Nichelle. Discussed patient's past medical history, clinical course and current medical management. Patient's daughter verbalized that patient has declined any further intervention, she wishes for no additional telemetry monitoring, oxygen , or any other medical intervention. Daughter tells me that the patient's wishes are for comfort-directed care, patient and family electing hospice services at this time. Discussed philosophy and benefits of hospice to include services provided. Discussed care center for symptom management given patient' s continued decline. Patient's life expectancy of days if illness runs its natural course. Family verbalized understanding. Patient's daughter wishing to discuss further with Dr. Voss for discharge planning to include continue hospitalization vs hospice care center. . Advance Directives Living Will: Copy in medical record Health Care Surrogate: Copy in medical record Advance Directive Specifics Date completed: 03/27/17. Health Care Surrogate(s): Patient designated her daughter Eve Santos as healthcare surrogate decision- maker, alternate son Jameson Santos. . Documented care wishes: Living will with standard verbiage as it pertains to artificial means of life support. . Significant change in goals: No code. DNR/DNI. Patient and family electing comfort-directed care. Considering hospice at this time. . Objective Vital Signs Date Time Temp Pulse Resp B/P (MAP) Pulse Ox O2 Delivery O2 Flow Rate FiO2 04/02/17 12:00 96.1 94 17 103/154 (137) 96 04/02/17 08:00 96.3 84 17 88/53 (65) 96 04/02/17 04:19 97.2 80 16 95/50 (65) 98 04/02/17 00:47 97.0 75 16 99/54 (69) 100 04/01/17 20:00 96.7 101 17 100/53 (69) 92 04/01/17 15:56 95.8 80 19 97/52 (67) 97 Intake & Output 04/02/17 04/02/17 07:00 19:00 Intake Total 720 ml Balance 720 ml Intake Oral 720 ml # Voids 6 # Bowel Movements 0 Physical Exam CONSTITUTIONAL/GENERAL: This is a frail, elderly female resting in bed in no acute distress. TUBES/LINES/DRAINS: PIV. SKIN: Pale. No jaundice, rashes. Large areas of ecchymoses on all extremities. Scattered scabs on left upper arm and right lower leg. Skin temperature appropriate. Not diaphoretic. HEAD: Atraumatic. Normocephalic. Bilateral temporal wasting noted. EYES: Pupils equal and round and reactive. Extraocular motions intact. No scleral icterus. No injection or drainage. ENT: Hearing grossly normal. Nose without bleeding or purulent drainage. Moist oral mucosa. NECK: Trachea midline. Supple, nontender. CARDIOVASCULAR: Irregular rate and rhythm. No JVD. Peripheral pulses symmetric. RESPIRATORY/CHEST: Symmetric, unlabored respirations. Clear to auscultation. Breath sounds equal bilaterally. No wheezes, rales, or rhonchi. GASTROINTESTINAL: Abdomen soft, non-tender, nondistended. No guarding. Bowel sounds present. GENITOURINARY: Without palpable bladder distension. MUSCULOSKELETAL: Extremities without clubbing, cyanosis, or edema. Muscular atrophy to all 4 extremities. NEUROLOGICAL: Awake and alert x self, place and situation. Confused at times. Moves all extremities. Follows commands. Weak. PSYCHIATRIC: No obvious anxiety/depression. Pleasant and cooperative. . Diagnostic Tests Result Diagram: 03/30/1762503/30/17625 Assessment and Plan Disease Oriented Problem List: (1) GI bleed (2) CHF (congestive heart failure) (3) Atrial fibrillation (4) Confusion (5) Frequent falls (6) Physical deconditioning Symptom Scale: (1) Debility 0-10 Scale: Unable to quantify Comment: Progressive. Worsened during the past 3 months. . Pertinent Non-Medical Issues Psychosocial: Patient originally from the [place]. Moved to [place] 59 years ago. In [place] for the past 37 years. Patient is , her 4 years ago. Patient has one daughter who lives in [place] and one son who lives in [facility]. 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 Spiritual: Legal: Advance directives reported as completed many years ago. Patient nor daughter have any copies. Patient interested in completion AD while inpatient. Ethical issues impacting care: Patient participating in medical decision-making , periods of confusion. Palliative care recommends shared decision-making with daughter. . Important Contacts Daughter Eve Santos [phone] Son Jameson Santos & . . Prognosis Mrs. Santos dates an 89-year-old female with a medical history of hypertension, hypothyroidism and anemia percentage to the emergency room on 03/23/17 for evaluation of generalized weakness/fatigue. As per patient, she has been reporting worsening weakness/debility for the past few days to weeks. Frequent falls at home. Reports of recent treatment at [facility] secondary to anemia where she received blood transfusion. Abdomen/pelvis CT revealing lymphadenopathy, concerns of lymphoma. Patient very high risk for further complications, continue decline and given progressive physical decline, chronic comorbidities and acute events. . Code Status: No Code Plan * CODE STATUS: Patient and daughter electing DNR/DNI. * HEALTHCARE DECISION-MAKING: Patient participating in medical decision-making, periods of confusion. Concerns regarding patient's full understanding of her clinical condition and her ability to weight the risks and burdens of treatment options -questionable dementia. Patient designated her daughter Eve Santos as healthcare surrogate decision-maker, alternate son Jameson Santos. * Palliative care recommends shared decision-making with daughter Eve/DANIAL. * GOALS OF CARE: Patient and family electing comfort-directed care. Patient has verbalized NOT wishing to continue with any further medical interventions. Patient and family currently considering hospice. Hospice philosophy and benefits has been introduced. Family to discuss further. * Family meeting. In attendance patient's daughter Eve, son Lad, palliative care team Merle DARNELL, CARIE Torres and homicide squad commanding officer Nichelle. Discussed patient's past medical history, clinical course and current medical management. Patient's daughter verbalized that patient has declined any further intervention, she wishes for no additional telemetry monitoring, oxygen , or any other medical intervention. Daughter tells me that the patient's wishes are for comfort-directed care, patient and family electing hospice services at this time. Discussed philosophy and benefits of hospice to include services provided. Discussed care center for symptom management given patient' s continued decline. Patient's life expectancy of days if illness runs its natural course. Family verbalized understanding. Patient's daughter wishing to discuss further with Dr. Voss for discharge planning to include continue hospitalization vs hospice care center. * SYMPTOMS: = Debility, progressive. Worsen for the past 3 months. Frequent recent falls at home. Likely to continue to worsen. * Case discussed with Dr. Voss, bedside RN and hospice admissions nurse Viky. * Palliative care contact information has been provided to patient and daughter. * Palliative care will continue to follow-up for further clarifications of goals of care as pt's clinical course continues to evolve. . Time Spent Total Floor Time (mins): 48 (Total time to include review medical records, physical exam, goals of care conversation with patient's family, case discussion with Dr. Voss, bedside RN and homicide squad commanding officer Nichelle.) >50% Counseling/Coord of Care: Yes Attestation To help prompt me to consider important information that might be impacting today's encounter and assessment, information from prior notes written by myself or my colleagues may have been "brought forward" into today's note. My signature on this note, however, is an attestation that I personally performed the exam, history, and/or decision-making noted today, and, unless otherwise indicated, the interactions with patient, family, and staff as well as the review of records all occurred today. I also attest that the listed assessment and stated plan reflect my best clinical judgment today based on the combination of historical information, prior notes, and today's exam/ interactions. When time spent is documented, it refers only to time spent today by the signer, or if indicated, combined time spent today by collaborating physician/nurse practitioner. Merle Tamayo Apr 02, 2017 13:54
[2017-04-03] VITALS: BP 90/52; PULSE 96; RESP 16; TEMP 98.7; O2SAT 99
[2017-04-03 04:43] VITALS: BP 105/55; PULSE 95; RESP 16; TEMP 98; O2SAT 97
[2017-04-03] MEDS: LEVOTHYROXINE SODIUM 50 MCG TAB PO SCH (05:55)
[2017-04-03 08:00] VITALS: BP 90/57; PULSE 111; RESP 17; TEMP 97.8; O2SAT 93
--- NOTE | 2017-04-03 09:48 | HHI.PR ---
Subjective Remarks Follow-up atrial fibrillation/systolic CHF exacerbation/GI bleed/questionable early dementia 03/30/17-patient seen and examined him alert and oriented. Patient still reported GI bleed however does not want any procedure to be performed. Her nurse report, overnight patient went to [facility] but did refuse her medications, however she took her medicines this morning. She denies any heart palpitation, chest pain or shortness of breath. Case was discussed with hematology 03/31/17-delay entry. Patient was seen and examined earlier this morning, no acute event overnight 04/01/17-patient seen and examined, no acute event overnight and stable. H&H stable and no report of GI bleed. Daughter is still considering hospice 04/02/17-patient seen and examined, no acute event overnight. Denies any GI bleed. BP soft. Family is not considering hospice, will have a meeting with hospice staff this afternoon 04/03/17-patient seen and examined, no change and stable. Discussed yesterday with daughter regarding possible discharge to hospice, however she would like her mom to remain hospitalized until a later date before making a final decision Objective Vitals Vital Signs Date Time Temp Pulse Resp B/P (MAP) Pulse Ox O2 Delivery O2 Flow Rate FiO2 04/03/17 08:00 97.8 111 17 90/57 (68) 93 04/03/17 04:43 98.0 95 16 105/55 (72) 97 04/03/17 00:00 98.7 96 16 90/52 (65) 99 04/02/17 20:57 98.2 99 16 109/70 (83) 100 04/02/17 16:00 98.2 96 17 110/61 (77) 86 04/02/17 12:00 96.1 94 17 103/54 (70) 96 04/02/17 10:08 98/54 (69) 04/02/17 09:58 86 I/O 04/02/17 04/02/17 04/02/17 04/03/17 04/03/17 04/03/17 07:00 15:00 23:00 07:00 15:00 23:00 Intake Total 240 ml 240 ml 240 ml 60 ml Balance 240 ml 240 ml 240 ml 60 ml Intake Oral 240 ml 240 ml 240 ml 60 ml # Voids 1 2 2 1 # Bowel Movements 0 0 0 0 Result Diagram: 03/30/1762503/30/17625 Objective Remarks GENERAL: NAD SKIN: Warm and dry. HEAD: Normocephalic. EYES: No scleral icterus. No injection or drainage. NECK: Supple, trachea midline. No JVD or lymphadenopathy. CARDIOVASCULAR: Irregular Regular rate and rhythm without murmurs, gallops, or rubs. RESPIRATORY: Breath sounds equal bilaterally. No accessory muscle use. GASTROINTESTINAL: Abdomen soft, non-tender, nondistended. MUSCULOSKELETAL: No cyanosis, or edema. BACK: Nontender without obvious deformity. No CVA tenderness. A/P Problem List: (1) GI bleed ICD Code: K92.2 - Gastrointestinal hemorrhage, unspecified Status: Acute (2) CHF (congestive heart failure) ICD Code: I50.9 - Heart failure, unspecified Status: Acute (3) Generalized weakness ICD Code: R53.1 - Weakness Status: Acute (4) Acute systolic (congestive) heart failure ICD Code: I50.21 - Acute systolic (congestive) heart failure Assessment and Plan 89-year-old female with GI bleed with Symptomatic Anemia - Patient received 2 units of PRBC. H&H stable -patient and her daughter have refused any procedure including panendoscopy -Abdominal CT revealed alex hepatitis and pericaval lymphadenopathy concerning for lymphoma. Extensive alex hepatitis and pericaval lymphadenopathy concerning for lymphoma: Appreciate input from Oncology Vomiting and patient have refused any biopsy of adenopathy. Palliative care medicine follow-up Hospice consultation appreciated; family still undecided on discharge to hospice Acute systolic CHF Exacerbation Appreciate input from cardiology however patient is a poor candidate for revascularization, and they have refused any studies including Lexiscan 2D echo showed LVEF of 35-40%. Continue metoprolol, low dose Lasix and JOHN inhibitor. Possible early dementia: Patient appeared to still have capacity to designate a healthcare surrogate. Physical deconditioning, suspected related to anemia and CHF -PT following. Hypothyroidism -Continued home medications levothyroxine Hypertension, chronic -Currently on Lopressor, however secondary to low BP will hold the medication with holding parameters DVT prophylaxis: SCDs, hold chemical prophylaxis due to gi bleed GI prophylaxis: Protonix Problem Qualifiers (1) GI bleed: Qualified Codes: K92.2 - Gastrointestinal hemorrhage, unspecified (2) CHF (congestive heart failure): Qualified Codes: I50.9 - Heart failure, unspecified Alex Voss MD Apr 03, 2017 09:48
[2017-04-03] MEDS: PANTOPRAZOLE SOD 40 MG DELAYED RELEASE TAB PO SCH (09:56)
[2017-04-03] MEDS: SODIUM CHLORIDE 0.9% FLUSH 10 ML FLUSH IV FLUSH SCH ×2 (09:56→20:00)
[2017-04-03] MEDS: METOPROLOL TARTRATE 50 MG TAB PO SCH ×2 (09:57→20:00)
[2017-04-03] MEDS: LISINOPRIL 5 MG TAB PO SCH (09:57)
[2017-04-03] MEDS: FUROSEMIDE 20 MG TAB PO SCH (09:57)
[2017-04-03 12:00] VITALS: BP 104/67; PULSE 97; RESP 17; TEMP 96.5; O2SAT 99
[2017-04-03 16:00] VITALS: BP 113/61; PULSE 94; RESP 17; TEMP 97.5; O2SAT 96
[2017-04-03 20:45] LABS: AUTOMATED NEUTROPHIL # 6.2 TH/MM3 (1.8-7.7); BASOPHIL # 0.1 TH/MM3 (0-0.2); BASOPHIL % 0.8 % (0.0-2.0); EOSINOPHIL # 0.4 TH/MM3 (0-0.4); HEMATOCRIT 30.7 % (35.0-46.0); HEMO FLAGS DIFF FINAL; LYMPH % 5.3 % (9.0-44.0); LYMPHOCYTE # 0.4 TH/MM3 (1.0-4.8); MEAN CELL VOLUME 82.9 FL (80.0-100.0); MEAN CORPUSCULAR HEMOGLOBIN 26.5 PG (27.0-34.0); MEAN CORPUSCULAR HGB CONC 31.9 % (32.0-36.0); NEUT % 76.9 % (16.0-70.0); PLATELET COUNT 528 TH/MM3 (150-450); RED BLOOD COUNT 3.71 MIL/MM3 (4.00-5.30); RED CELL DISTRIBUTION WIDTH 18.2 % (11.6-17.2); WHITE BLOOD COUNT 8.1 TH/MM3 (4.0-11.0)
[2017-04-03 20:49] VITALS: BP 94/50; PULSE 95; RESP 16; TEMP 98; O2SAT 98
[2017-04-03 22:15] LABS: BICARBONATE 26.6 MEQ/L (21.0-32.0); POTASSIUM 3.7 MEQ/L (3.5-5.1)
[2017-04-04] VITALS (7 sets, daily range): BP systolic 92–124; BP diastolic 47–72; PULSE 81–104; RESP 16–18; TEMP 96–97.7; O2SAT 96–99
[2017-04-04] MEDS: LEVOTHYROXINE SODIUM 50 MCG TAB PO SCH (05:26)
[2017-04-04] MEDS: PANTOPRAZOLE SOD 40 MG DELAYED RELEASE TAB PO SCH (08:26)
[2017-04-04] MEDS: LISINOPRIL 5 MG TAB PO SCH (08:26)
[2017-04-04] MEDS: METOPROLOL TARTRATE 50 MG TAB PO SCH ×2 (08:26→20:43)
[2017-04-04] MEDS: FUROSEMIDE 20 MG TAB PO SCH (08:26)
--- NOTE | 2017-04-04 11:46 | HHI.PR ---
Subjective Remarks Follow-up atrial fibrillation/systolic CHF exacerbation/GI bleed/questionable early dementia 03/30/17-patient seen and examined him alert and oriented. Patient still reported GI bleed however does not want any procedure to be performed. Her nurse report, overnight patient went to [facility] but did refuse her medications, however she took her medicines this morning. She denies any heart palpitation, chest pain or shortness of breath. Case was discussed with hematology 03/31/17-delay entry. Patient was seen and examined earlier this morning, no acute event overnight 04/01/17-patient seen and examined, no acute event overnight and stable. H&H stable and no report of GI bleed. Daughter is still considering hospice 04/02/17-patient seen and examined, no acute event overnight. Denies any GI bleed. BP soft. Family is not considering hospice, will have a meeting with hospice staff this afternoon 04/03/17-patient seen and examined, no change and stable. Discussed yesterday with daughter regarding possible discharge to hospice, however she would like her mom to remain hospitalized until a later date before making a final decision 04/04/17-patient seen and examined, patient is refusing her meds. no change Objective Vitals Vital Signs Date Time Temp Pulse Resp B/P (MAP) Pulse Ox O2 Delivery O2 Flow Rate FiO2 04/04/17 08:00 96.0 99 17 124/72 (89) 98 04/04/17 04:00 97.1 94 16 99/51 (67) 98 04/04/17 00:46 96.9 98 16 104/67 (79) 96 04/03/17 20:49 98.0 95 16 94/50 (65) 98 04/03/17 16:00 97.5 94 17 113/61 (78) 96 04/03/17 12:00 96.5 97 17 104/67 (79) 99 I/O 04/03/17 04/03/17 04/03/17 04/04/17 04/04/17 04/04/17 06:59 14:59 22:59 06:59 14:59 22:59 Intake Total 60 ml 400 ml 240 ml 120 ml Balance 60 ml 400 ml 240 ml 120 ml Intake Oral 60 ml 400 ml 240 ml 120 ml # Voids 1 1 1 2 # Bowel Movements 0 0 0 0 Result Diagram: 04/03/17201804/03/172018 Objective Remarks GENERAL: NAD SKIN: Warm and dry. HEAD: Normocephalic. EYES: No scleral icterus. No injection or drainage. NECK: Supple, trachea midline. No JVD or lymphadenopathy. CARDIOVASCULAR: Irregular Regular rate and rhythm without murmurs, gallops, or rubs. RESPIRATORY: Breath sounds equal bilaterally. No accessory muscle use. GASTROINTESTINAL: Abdomen soft, non-tender, nondistended. MUSCULOSKELETAL: No cyanosis, or edema. BACK: Nontender without obvious deformity. No CVA tenderness. A/P Problem List: (1) GI bleed ICD Code: K92.2 - Gastrointestinal hemorrhage, unspecified Status: Acute (2) CHF (congestive heart failure) ICD Code: I50.9 - Heart failure, unspecified Status: Acute (3) Generalized weakness ICD Code: R53.1 - Weakness Status: Acute (4) Acute systolic (congestive) heart failure ICD Code: I50.21 - Acute systolic (congestive) heart failure Assessment and Plan 89-year-old female with GI bleed with Symptomatic Anemia - Patient received 2 units of PRBC. H&H stable -patient and her daughter have refused any procedure including panendoscopy -Abdominal CT revealed alex hepatitis and pericaval lymphadenopathy concerning for lymphoma. Extensive alex hepatitis and pericaval lymphadenopathy concerning for lymphoma: Appreciate input from Oncology Vomiting and patient have refused any biopsy of adenopathy. Palliative care medicine follow-up Hospice consultation appreciated; family still undecided on discharge to hospice Acute systolic CHF Exacerbation Appreciate input from cardiology however patient is a poor candidate for revascularization, and they have refused any studies including Lexiscan 2D echo showed LVEF of 35-40%. Continue metoprolol, low dose Lasix and JOHN inhibitor. Possible early dementia Outpatient follow-up Physical deconditioning, suspected related to anemia and CHF -PT following. Hypothyroidism -Continued home medications levothyroxine Hypertension, chronic -Currently on Lopressor with holding parameters DVT prophylaxis: SCDs, hold chemical prophylaxis due to gi bleed GI prophylaxis: Protonix Problem Qualifiers (1) GI bleed: Qualified Codes: K92.2 - Gastrointestinal hemorrhage, unspecified (2) CHF (congestive heart failure): Qualified Codes: I50.9 - Heart failure, unspecified Alex Voss MD Apr 04, 2017 11:46
[2017-04-04] MEDS: SODIUM CHLORIDE 0.9% FLUSH 10 ML FLUSH IV FLUSH SCH (20:44)
[2017-04-05] MEDS: ACETAMINOPHEN 325 MG TAB PO PRN (02:42)
[2017-04-05] MEDS: LEVOTHYROXINE SODIUM 50 MCG TAB PO SCH ×2 (02:44→08:27)
[2017-04-05 04:50] VITALS: BP 100/61; PULSE 93; RESP 16; TEMP 97.4; O2SAT 100
[2017-04-05 08:00] VITALS: BP 113/70; PULSE 89; RESP 18; TEMP 95.3; O2SAT 99
[2017-04-05] MEDS: METOPROLOL TARTRATE 50 MG TAB PO SCH ×2 (08:27→20:58)
[2017-04-05] MEDS: FUROSEMIDE 20 MG TAB PO SCH (09:00)
[2017-04-05] MEDS: SODIUM CHLORIDE 0.9% FLUSH 10 ML FLUSH IV FLUSH SCH ×2 (09:00→20:58)
[2017-04-05] MEDS: PANTOPRAZOLE SOD 40 MG DELAYED RELEASE TAB PO SCH (09:00)
[2017-04-05] MEDS: LISINOPRIL 5 MG TAB PO SCH (09:00)
--- NOTE | 2017-04-05 10:35 | HHI.PR ---
Subjective Remarks Follow-up atrial fibrillation/systolic CHF exacerbation/GI bleed/questionable early dementia 03/30/17-patient seen and examined him alert and oriented. Patient still reported GI bleed however does not want any procedure to be performed. Her nurse report, overnight patient went to [facility] but did refuse her medications, however she took her medicines this morning. She denies any heart palpitation, chest pain or shortness of breath. Case was discussed with hematology 03/31/17-delay entry. Patient was seen and examined earlier this morning, no acute event overnight 04/01/17-patient seen and examined, no acute event overnight and stable. H&H stable and no report of GI bleed. Daughter is still considering hospice 04/02/17-patient seen and examined, no acute event overnight. Denies any GI bleed. BP soft. Family is not considering hospice, will have a meeting with hospice staff this afternoon 04/03/17-patient seen and examined, no change and stable. Discussed yesterday with daughter regarding possible discharge to hospice, however she would like her mom to remain hospitalized until a later date before making a final decision 04/04/17-patient seen and examined, patient is refusing her meds. no change 04/05/17-patient seen and examined, per nurse report patient has taken some of her medicines morning. No other issues. Pleasant. Alert and oriented 3. Objective Vitals Vital Signs Date Time Temp Pulse Resp B/P (MAP) Pulse Ox O2 Delivery O2 Flow Rate FiO2 04/05/17 08:00 95.3 89 18 113/70 (84) 99 04/05/17 04:50 97.4 93 16 100/61 (74) 100 04/04/17 23:00 97.3 81 16 105/56 (72) 98 04/04/17 20:45 96.9 90 16 92/58 (69) 99 04/04/17 16:00 97.7 90 18 115/67 (83) 96 04/04/17 12:00 96.3 104 18 95/47 (63) 98 I/O 04/04/17 04/04/17 04/04/17 04/05/17 04/05/17 04/05/17 06:59 14:59 22:59 06:59 14:59 22:59 Intake Total 120 ml 360 ml 120 ml 60 ml Balance 120 ml 360 ml 120 ml 60 ml Intake Oral 120 ml 360 ml 120 ml 60 ml # Voids 2 3 2 2 # Bowel Movements 0 0 0 0 Result Diagram: 04/03/17201804/03/172018 Objective Remarks GENERAL: NAD SKIN: Warm and dry. HEAD: Normocephalic. EYES: No scleral icterus. No injection or drainage. NECK: Supple, trachea midline. No JVD or lymphadenopathy. CARDIOVASCULAR: Irregular Regular rate and rhythm without murmurs, gallops, or rubs. RESPIRATORY: Breath sounds equal bilaterally. No accessory muscle use. GASTROINTESTINAL: Abdomen soft, non-tender, nondistended. MUSCULOSKELETAL: No cyanosis, or edema. BACK: Nontender without obvious deformity. No CVA tenderness. A/P Problem List: (1) GI bleed ICD Code: K92.2 - Gastrointestinal hemorrhage, unspecified Status: Acute (2) CHF (congestive heart failure) ICD Code: I50.9 - Heart failure, unspecified Status: Acute (3) Generalized weakness ICD Code: R53.1 - Weakness Status: Acute (4) Acute systolic (congestive) heart failure ICD Code: I50.21 - Acute systolic (congestive) heart failure Assessment and Plan 89-year-old female with GI bleed with Symptomatic Anemia-stable - Patient received 2 units of PRBC. H&H stable -patient and her daughter have refused any procedure including panendoscopy -Abdominal CT revealed alex hepatitis and pericaval lymphadenopathy concerning for lymphoma. Extensive alex hepatitis and pericaval lymphadenopathy concerning for lymphoma: Appreciate input from Oncology Vomiting and patient have refused any biopsy of adenopathy. Palliative care medicine follow-up Hospice consultation appreciated; family still undecided on discharge to hospice Acute systolic CHF Exacerbation Appreciate input from cardiology however patient is a poor candidate for revascularization, and they have refused any studies including Lexiscan 2D echo showed LVEF of 35-40%. Continue metoprolol, low dose Lasix and JOHN inhibitor. Possible early dementia Outpatient follow-up Physical deconditioning, suspected related to anemia and CHF -PT following. Hypothyroidism -Continued home medications levothyroxine Hypertension, chronic -Currently on Lopressor with holding parameters DVT prophylaxis: SCDs, hold chemical prophylaxis due to gi bleed GI prophylaxis: Protonix Discharge Planning Likely discharge next week Problem Qualifiers (1) GI bleed: Qualified Codes: K92.2 - Gastrointestinal hemorrhage, unspecified (2) CHF (congestive heart failure): Qualified Codes: I50.9 - Heart failure, unspecified Alex Voss MD Apr 05, 2017 10:35
[2017-04-05 12:00] VITALS: BP 96/60; PULSE 75; RESP 18; TEMP 95.2; O2SAT 100
[2017-04-05 16:00] VITALS: BP 103/60; PULSE 75; RESP 18; TEMP 97.7; O2SAT 99
[2017-04-05] MEDS ORDERED: LACTULOSE SYRUP 20 GM/30 ML CUP PO PRN (19:30)
[2017-04-05] MEDS ORDERED: SENNOSIDES 8.6 MG TAB PO PRN (19:30)
[2017-04-05] MEDS ORDERED: BISACODYL 10 MG SUPP RECTAL PRN (19:30)
[2017-04-05 20:30] VITALS: BP 99/47; PULSE 89; RESP 16; TEMP 98.3; O2SAT 98
[2017-04-05] MEDS: DOCUSATE SODIUM 100 MG CAP PO SCH (20:58)
[2017-04-06 00:20] VITALS: BP 119/51; PULSE 85; RESP 16; TEMP 96.6; O2SAT 95
[2017-04-06 04:30] VITALS: BP 101/59; PULSE 75; RESP 15; TEMP 97.3; O2SAT 97
[2017-04-06] MEDS: FUROSEMIDE 20 MG TAB PO SCH (08:37)
[2017-04-06] MEDS: METOPROLOL TARTRATE 50 MG TAB PO SCH ×2 (08:37→21:00)
[2017-04-06] MEDS: LISINOPRIL 5 MG TAB PO SCH (08:37)
[2017-04-06] MEDS: DOCUSATE SODIUM 100 MG CAP PO SCH ×2 (08:37→21:19)
[2017-04-06] MEDS: PANTOPRAZOLE SOD 40 MG DELAYED RELEASE TAB PO SCH (08:37)
[2017-04-06] MEDS: SODIUM CHLORIDE 0.9% FLUSH 10 ML FLUSH IV FLUSH SCH ×2 (08:38→21:20)
[2017-04-06 08:39] VITALS: BP 121/62; PULSE 92; RESP 17; TEMP 95.8; O2SAT 96
--- NOTE | 2017-04-06 09:02 | HHI.PR ---
Subjective Remarks Follow-up atrial fibrillation/systolic CHF exacerbation/GI bleed/questionable early dementia 03/30/17-patient seen and examined him alert and oriented. Patient still reported GI bleed however does not want any procedure to be performed. Her nurse report, overnight patient went to [facility] but did refuse her medications, however she took her medicines this morning. She denies any heart palpitation, chest pain or shortness of breath. Case was discussed with hematology 03/31/17-delay entry. Patient was seen and examined earlier this morning, no acute event overnight 04/01/17-patient seen and examined, no acute event overnight and stable. H&H stable and no report of GI bleed. Daughter is still considering hospice 04/02/17-patient seen and examined, no acute event overnight. Denies any GI bleed. BP soft. Family is not considering hospice, will have a meeting with hospice staff this afternoon 04/03/17-patient seen and examined, no change and stable. Discussed yesterday with daughter regarding possible discharge to hospice, however she would like her mom to remain hospitalized until a later date before making a final decision 04/04/17-patient seen and examined, patient is refusing her meds. no change 04/05/17-patient seen and examined, per nurse report patient has taken some of her medicines morning. No other issues. Pleasant. Alert and oriented 3. 04/06/17-patient seen and examined, stable and no change overnight. Objective Vitals Vital Signs Date Time Temp Pulse Resp B/P (MAP) Pulse Ox O2 Delivery O2 Flow Rate FiO2 04/06/17 08:39 95.8 92 17 121/62 (81) 96 04/06/17 04:30 97.3 75 15 101/59 (73) 97 04/06/17 00:20 96.6 85 16 119/51 (73) 95 04/05/17 20:30 98.3 89 16 99/47 (64) 98 04/05/17 16:00 97.7 75 18 103/60 (74) 99 04/05/17 12:00 95.2 75 18 96/60 (72) 100 I/O 04/05/17 04/05/17 04/05/17 04/06/17 04/06/17 04/06/17 07:00 15:00 23:00 07:00 15:00 23:00 Intake Total 60 ml 480 ml 120 ml 100 ml Balance 60 ml 480 ml 120 ml 100 ml Intake Oral 60 ml 480 ml 120 ml 100 ml # Voids 2 1 2 1 # Bowel Movements 0 0 0 0 Result Diagram: 04/03/17201804/03/172018 Objective Remarks GENERAL: NAD SKIN: Warm and dry. HEAD: Normocephalic. EYES: No scleral icterus. No injection or drainage. NECK: Supple, trachea midline. No JVD or lymphadenopathy. CARDIOVASCULAR: Irregular Regular rate and rhythm without murmurs, gallops, or rubs. RESPIRATORY: Breath sounds equal bilaterally. No accessory muscle use. GASTROINTESTINAL: Abdomen soft, non-tender, nondistended. MUSCULOSKELETAL: No cyanosis, or edema. BACK: Nontender without obvious deformity. No CVA tenderness. A/P Problem List: (1) GI bleed ICD Code: K92.2 - Gastrointestinal hemorrhage, unspecified Status: Acute (2) CHF (congestive heart failure) ICD Code: I50.9 - Heart failure, unspecified Status: Acute (3) Generalized weakness ICD Code: R53.1 - Weakness Status: Acute (4) Acute systolic (congestive) heart failure ICD Code: I50.21 - Acute systolic (congestive) heart failure Assessment and Plan 89-year-old female with GI bleed with Symptomatic Anemia-stable - Patient received 2 units of PRBC. H&H stable -patient and her daughter have refused any procedure including panendoscopy -Abdominal CT revealed alex hepatitis and pericaval lymphadenopathy concerning for lymphoma. Extensive alex hepatitis and pericaval lymphadenopathy concerning for lymphoma: Appreciate input from Oncology Vomiting and patient have refused any biopsy of adenopathy. Palliative care medicine follow-up Hospice consultation appreciated; family still undecided on discharge to hospice, however may be discharged this week Acute systolic CHF Exacerbation Appreciate input from cardiology however patient is a poor candidate for revascularization, and they have refused any studies including Lexiscan 2D echo showed LVEF of 35-40%. Continue metoprolol, low dose Lasix and JOHN inhibitor. Possible early dementia Outpatient follow-up Physical deconditioning, suspected related to anemia and CHF -PT following. Hypothyroidism -Continued home medications levothyroxine Hypertension, chronic -Currently on Lopressor with holding parameters DVT prophylaxis: SCDs, hold chemical prophylaxis due to gi bleed GI prophylaxis: Protonix Discharge Planning Likely discharge this week Problem Qualifiers (1) GI bleed: Qualified Codes: K92.2 - Gastrointestinal hemorrhage, unspecified (2) CHF (congestive heart failure): Qualified Codes: I50.9 - Heart failure, unspecified Alex Voss MD Apr 06, 2017 09:02
[2017-04-06 12:15] VITALS: BP 90/53; PULSE 79; RESP 18; TEMP 98.3; O2SAT 97
[2017-04-06 16:00] VITALS: BP 104/53; PULSE 85; RESP 18; TEMP 98.6; O2SAT 97
[2017-04-06 20:03] VITALS: BP 103/59; PULSE 80; RESP 16; TEMP 97; O2SAT 98
[2017-04-07] VITALS: BP 102/58; PULSE 85; RESP 16; TEMP 96.9; O2SAT 96
[2017-04-07] MEDS: LEVOTHYROXINE SODIUM 50 MCG TAB PO SCH (05:07)
[2017-04-07 08:00] VITALS: BP 106/63; PULSE 87; RESP 18; TEMP 97.5; O2SAT 99
[2017-04-07] MEDS: SODIUM CHLORIDE 0.9% FLUSH 10 ML FLUSH IV FLUSH SCH (09:00)
[2017-04-07] MEDS: LISINOPRIL 5 MG TAB PO SCH (09:00)
[2017-04-07] MEDS: METOPROLOL TARTRATE 50 MG TAB PO SCH (09:00)
[2017-04-07] MEDS: DOCUSATE SODIUM 100 MG CAP PO SCH (09:04)
[2017-04-07] MEDS: PANTOPRAZOLE SOD 40 MG DELAYED RELEASE TAB PO SCH (09:04)
[2017-04-07] MEDS: FUROSEMIDE 20 MG TAB PO SCH (09:05)
--- NOTE | 2017-04-07 09:13 | HHI.PR ---
Subjective Remarks Follow-up atrial fibrillation/systolic CHF exacerbation/GI bleed/questionable early dementia 03/30/17-patient seen and examined him alert and oriented. Patient still reported GI bleed however does not want any procedure to be performed. Her nurse report, overnight patient went to [facility] but did refuse her medications, however she took her medicines this morning. She denies any heart palpitation, chest pain or shortness of breath. Case was discussed with hematology 03/31/17-delay entry. Patient was seen and examined earlier this morning, no acute event overnight 04/01/17-patient seen and examined, no acute event overnight and stable. H&H stable and no report of GI bleed. Daughter is still considering hospice 04/02/17-patient seen and examined, no acute event overnight. Denies any GI bleed. BP soft. Family is not considering hospice, will have a meeting with hospice staff this afternoon 04/03/17-patient seen and examined, no change and stable. Discussed yesterday with daughter regarding possible discharge to hospice, however she would like her mom to remain hospitalized until a later date before making a final decision 04/04/17-patient seen and examined, patient is refusing her meds. no change 04/05/17-patient seen and examined, per nurse report patient has taken some of her medicines morning. No other issues. Pleasant. Alert and oriented 3. 04/06/17-patient seen and examined, stable and no change overnight. 04/07/17-patient seen and examined, she states now she feels hungry and she would have to eat because she has the stomach which can take up food Objective Vitals Vital Signs Date Time Temp Pulse Resp B/P (MAP) Pulse Ox O2 Delivery O2 Flow Rate FiO2 04/07/17 08:00 97.5 87 18 106/63 (77) 99 04/07/17 00:00 96.9 85 16 102/58 (73) 96 04/06/17 20:03 97.0 80 16 103/59 (74) 98 04/06/17 16:00 98.6 85 18 104/53 (70) 97 04/06/17 12:15 98.3 79 18 90/53 (65) 97 I/O 04/06/17 04/06/17 04/06/17 04/07/17 04/07/17 04/07/17 06:59 14:59 22:59 06:59 14:59 22:59 Intake Total 100 ml 360 ml 240 ml 60 ml Balance 100 ml 360 ml 240 ml 60 ml Intake Oral 100 ml 360 ml 240 ml 60 ml # Voids 1 3 1 1 # Bowel Movements 0 1 0 0 Result Diagram: 04/03/17201804/03/172018 Objective Remarks GENERAL: NAD SKIN: Warm and dry. HEAD: Normocephalic. EYES: No scleral icterus. No injection or drainage. NECK: Supple, trachea midline. No JVD or lymphadenopathy. CARDIOVASCULAR: Irregular Regular rate and rhythm without murmurs, gallops, or rubs. RESPIRATORY: Breath sounds equal bilaterally. No accessory muscle use. GASTROINTESTINAL: Abdomen soft, non-tender, nondistended. MUSCULOSKELETAL: No cyanosis, or edema. BACK: Nontender without obvious deformity. No CVA tenderness. A/P Problem List: (1) GI bleed ICD Code: K92.2 - Gastrointestinal hemorrhage, unspecified Status: Acute (2) CHF (congestive heart failure) ICD Code: I50.9 - Heart failure, unspecified Status: Acute (3) Generalized weakness ICD Code: R53.1 - Weakness Status: Acute (4) Acute systolic (congestive) heart failure ICD Code: I50.21 - Acute systolic (congestive) heart failure Assessment and Plan 89-year-old female with GI bleed with Symptomatic Anemia-stable - Patient received 2 units of PRBC. H&H stable -patient and her daughter have refused any procedure including panendoscopy -Abdominal CT revealed alex hepatitis and pericaval lymphadenopathy concerning for lymphoma. Extensive alex hepatitis and pericaval lymphadenopathy concerning for lymphoma: Appreciate input from Oncology Vomiting and patient have refused any biopsy of adenopathy. Palliative care medicine follow-up Hospice consultation appreciated; family still undecided on discharge to hospice, however may be discharged this week Acute systolic CHF Exacerbation Appreciate input from cardiology however patient is a poor candidate for revascularization, and they have refused any studies including Lexiscan 2D echo showed LVEF of 35-40%. Continue metoprolol, low dose Lasix and JOHN inhibitor. Possible early dementia Outpatient follow-up Physical deconditioning, suspected related to anemia and CHF -PT following. Hypothyroidism -Continued home medications levothyroxine Hypertension, chronic -Currently on Lopressor with holding parameters DVT prophylaxis: SCDs, hold chemical prophylaxis due to gi bleed GI prophylaxis: Protonix Discharge Planning Likely discharge this week Problem Qualifiers (1) GI bleed: Qualified Codes: K92.2 - Gastrointestinal hemorrhage, unspecified (2) CHF (congestive heart failure): Qualified Codes: I50.9 - Heart failure, unspecified Alex Voss MD Apr 07, 2017 09:13
[2017-04-07 11:51] VITALS: BP 107/88; PULSE 102; RESP 18; TEMP 97.8; O2SAT 98
--- NOTE | 2017-04-07 12:24 | HHI.HCPN ---
Reason for visit a. To assist with evaluation and management of symptoms including: Debility. b. To assist medical decision maker(s) with: better understanding of current medical conditions; weighing benefits/burdens of medical treatment options; making medical treatment decisions. . Subjective/Interval History Mrs. Santos is an 89-year-old female with a medical history of hypertension, hypothyroidism and anemia percentage to the emergency room on 03/23/17 for evaluation of generalized weakness/fatigue. As per patient, she has been reporting worsening weakness/debility for the past few days to weeks. Frequent falls at home. Reports of recent blood transfusion at [facility]. On admission Hgb 8.0, repeat Hgb 7.2. Patient received 2 units of PRBC. Patient was admitted for further management. Palliative care has been consulted for further clarifications of goals of care. Patient seen in her room. She was sitting up in recliner chair in no acute distress. Patient denies pain, shortness of breath, nausea/vomiting or abdominal discomfort. Endorsing overall weakness. Appetite is somewhat improved since last week. Last bowel movement yesterday. Patient remains afebrile, stable hemodynamically. Tolerating room air. Oxygen saturation in the high 90s. No new imaging or laboratory available for review. Meeting with patient, daughter Eve, palliative care and workforce staffing advisor Nichelle. Daughter tells me that patient has been accepted and is ready for discharge to [facility]. Patient on daughter electing to discharge with hospice services for comfort-directed care. Hospice philosophy and benefits were again discussed with daughter. Daughter in agreement of comfort-directed management. All questions where answered in great detail. . Family/friend interactions See interval note. . Advance Directives Living Will: Copy in medical record Health Care Surrogate: Copy in medical record Advance Directive Specifics Date completed: 03/27/17. Health Care Surrogate(s): Patient designated her daughter Eve Santos as healthcare surrogate decision- maker, alternate son Jameson Santos. . Documented care wishes: Living will with standard verbiage as it pertains to artificial means of life support. . Significant change in goals: Patient and daughter electing to discharge to [facility] with hospice services. . Objective Vital Signs Date Time Temp Pulse Resp B/P (MAP) Pulse Ox O2 Delivery O2 Flow Rate FiO2 04/07/17 11:51 97.8 102 18 107/88 (94) 98 04/07/17 08:00 97.5 87 18 106/63 (77) 99 04/07/17 00:00 96.9 85 16 102/58 (73) 96 04/06/17 20:03 97.0 80 16 103/59 (74) 98 04/06/17 16:00 98.6 85 18 104/53 (70) 97 Intake & Output 04/07/17 04/07/17 07:00 19:00 Intake Total 300 ml Balance 300 ml Intake Oral 300 ml # Voids 2 # Bowel Movements 0 Physical Exam CONSTITUTIONAL/GENERAL: This is a frail, elderly female resting in bed in no acute distress. TUBES/LINES/DRAINS: PIV. SKIN: Pale. No jaundice, rashes. Large areas of ecchymoses on all extremities. Scattered scabs on left upper arm and right lower leg. Skin temperature appropriate. Not diaphoretic. HEAD: Atraumatic. Normocephalic. Bilateral temporal wasting noted. EYES: Pupils equal and round and reactive. Extraocular motions intact. No scleral icterus. No injection or drainage. ENT: Hearing grossly normal. Nose without bleeding or purulent drainage. Moist oral mucosa. NECK: Trachea midline. Supple, nontender. CARDIOVASCULAR: Irregular rate and rhythm. No JVD. Peripheral pulses symmetric. RESPIRATORY/CHEST: Symmetric, unlabored respirations. Clear to auscultation. Breath sounds equal bilaterally. No wheezes, rales, or rhonchi. GASTROINTESTINAL: Abdomen soft, non-tender, nondistended. No guarding. Bowel sounds present. GENITOURINARY: Without palpable bladder distension. MUSCULOSKELETAL: Extremities without clubbing, cyanosis, or edema. Muscular atrophy to all 4 extremities. NEUROLOGICAL: Awake and alert x self, place and situation. Confused at times. Moves all extremities. Follows commands. Weak. PSYCHIATRIC: No obvious anxiety/depression. Pleasant and cooperative. . Diagnostic Tests Result Diagram: 04/03/17201804/03/172018 Assessment and Plan Disease Oriented Problem List: (1) GI bleed (2) CHF (congestive heart failure) (3) Atrial fibrillation (4) Confusion (5) Frequent falls (6) Physical deconditioning Symptom Scale: (1) Debility 0-10 Scale: Unable to quantify Comment: Progressive. Worsened during the past 3 months. . Pertinent Non-Medical Issues Psychosocial: Patient originally from the [place]. Moved to [place] 59 years ago. In [place] for the past 37 years. Patient is , her 4 years ago. Patient has one daughter who lives in [place] and one son who lives in [facility]. 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 Spiritual: Legal: Advance directives reported as completed many years ago. Patient nor daughter have any copies. Patient interested in completion AD while inpatient. Ethical issues impacting care: Patient participating in medical decision-making , periods of confusion. Palliative care recommends shared decision-making with daughter. . Important Contacts Daughter Eve Santos [phone] Son Jameson Santos & . . Prognosis Mrs. Santos dates an 89-year-old female with a medical history of hypertension, hypothyroidism and anemia percentage to the emergency room on 03/23/17 for evaluation of generalized weakness/fatigue. As per patient, she has been reporting worsening weakness/debility for the past few days to weeks. Frequent falls at home. Reports of recent treatment at [facility] secondary to anemia where she received blood transfusion. Abdomen/pelvis CT revealing lymphadenopathy, concerns of lymphoma. Patient very high risk for further complications, continue decline and given progressive physical decline, chronic comorbidities and acute events. . Code Status: No Code Plan * CODE STATUS: DNR/DNI. * HEALTHCARE DECISION-MAKING: Patient participating in medical decision-making, periods of confusion. Concerns regarding patient's full understanding of her clinical condition and her ability to weight the risks and burdens of treatment options -questionable dementia. Patient designated her daughter Eve Santos as healthcare surrogate decision-maker, alternate son Jameson Santos. * Palliative care recommends shared decision-making with daughter Eve/DANIAL. * GOALS OF CARE: 04/07/17 -Patient and daughter electing patient to discharge to [facility] with hospice services. Hospice philosophy and benefits readdressed, patient and daughter in agreement with comfort-directed care. * SYMPTOMS: = Debility, progressive. Worsen for the past 3 months. Frequent recent falls at home. Likely to continue to worsen. * Case discussed with hospice admissions nurse Nichelle. * Palliative care contact information has been provided to patient and daughter. * Palliative care will continue to follow-up for further clarifications of goals of care as pt's clinical course continues to evolve. . Time Spent Total Floor Time (mins): 33 (Total time to include review medical records, vesicle exam, goals of care conversation with patient and daughter, case discussion with workforce staffing advisor Nichelle.) >50% Counseling/Coord of Care: Yes Attestation To help prompt me to consider important information that might be impacting today's encounter and assessment, information from prior notes written by myself or my colleagues may have been "brought forward" into today's note. My signature on this note, however, is an attestation that I personally performed the exam, history, and/or decision-making noted today, and, unless otherwise indicated, the interactions with patient, family, and staff as well as the review of records all occurred today. I also attest that the listed assessment and stated plan reflect my best clinical judgment today based on the combination of historical information, prior notes, and today's exam/ interactions. When time spent is documented, it refers only to time spent today by the signer, or if indicated, combined time spent today by collaborating physician/nurse practitioner. Merle Tamayo Apr 07, 2017 12:24
[2017-04-07] MEDS ORDERED: FURO20TA PO (13:05)
[2017-04-07] MEDS ORDERED: PANT40TA3 PO (13:05)
[2017-04-07] MEDS ORDERED: LISI-519 PO (13:05)
[2017-04-07] MEDS ORDERED: ACET1TAB86 PO (13:05)
--- NOTE | 2017-04-07 13:07 | HHI.DS ---
Discharge Summary Admission Date Mar 23, 2017 at 23:38 Discharge Date: Apr 07, 2017 Admitting Diagnosis GI bleed, generalized weakness, CHF (1) GI bleed ICD Code: K92.2 - Gastrointestinal hemorrhage, unspecified Status: Acute (2) CHF (congestive heart failure) ICD Code: I50.9 - Heart failure, unspecified Status: Acute (3) Generalized weakness ICD Code: R53.1 - Weakness Status: Acute (4) Acute systolic (congestive) heart failure ICD Code: I50.21 - Acute systolic (congestive) heart failure Procedures none Brief History - From Admission Written by CARIE Barillas acting as scribe for [Irina] on 03/23/17 at 23: 16. 89 y/o female with a history of hypothyroid, HTN, anemia, and questionable dementia presented to the ED with complaints of weakness. Patient states she has been very fatigued, and having increased weakness which is causing her to fall. She states yesterday she was falling all day intermittently. She denies any LOC or hitting her head. She denies any chest pain, sob, fever, chills, or dizziness. Also denies any blood in stool or urine. She states 2 weeks ago she was given a blood transfusion at [facility], admitted for 3 days, and was told her blood count was low. She denies ever having a colonoscopy or EGD in the past, but she is unable to remember the surgeries she has had in the past. She states for the last 3 years she has lost 50 lbs, and has no appetite. Her weight loss began when she was taking care of her who 3 years ago. PCP is Ruel Echeverria, Dr. Robles CBC/BMP: 04/03/17 2019 04/03/17 2019 Imaging Last Impressions Chest CT 03/26/17 0000 Signed Impressions: Service Date/Time: February 17:06 - CONCLUSION: 1. Small left pleural effusion. 2. Moderate cardiomegaly with no perihilar edema. 3. No evidence of mediastinal or hilar adenopathy. Jonathan Whittaker MD Abdomen/Pelvis CT 03/25/17 0000 Signed Impressions: Service Date/Time: Saturday, March 25, 2017 12:57 - CONCLUSION: Extensive alex hepatis and pericaval adenopathy that would be difficult to address percutaneously given its location without biopsy through the right lobe of the liver or vena cava. Mundo Fernando MD FACR Tibia/Fibula X-Ray 03/23/17 1834 Signed Impressions: Service Date/Time: Thursday, March 23, 2017 19:14 - CONCLUSION: No acute abnormality is seen. Anand Cook MD Head CT 03/23/171827 Signed Impressions: Service Date/Time: Thursday, March 23, 2017 19:18 - CONCLUSION: 1. No acute abnormality is seen. 2. Atrophy. Anand Cook MD Chest X-Ray 03/23/171827 Signed Impressions: Service Date/Time: Thursday, March 23, 2017 19:05 - CONCLUSION: Cardiomegaly with prominence of the interstitial markings diffusely representing pulmonary venous hypertension or mild edema. Anand Cook MD Lumbar Spine X-Ray 03/23/17 0000 Signed Impressions: Service Date/Time: Thursday, March 23, 2017 19:09 - CONCLUSION: Mild degenerative change. Anand Cook MD PE at Discharge GENERAL: NAD SKIN: Warm and dry. HEAD: Normocephalic. EYES: No scleral icterus. No injection or drainage. NECK: Supple, trachea midline. No JVD or lymphadenopathy. CARDIOVASCULAR: Irregular Regular rate and rhythm without murmurs, gallops, or rubs. RESPIRATORY: Breath sounds equal bilaterally. No accessory muscle use. GASTROINTESTINAL: Abdomen soft, non-tender, nondistended. MUSCULOSKELETAL: No cyanosis, or edema. BACK: Nontender without obvious deformity. No CVA tenderness. Hospital Course Prior to discharge to [facility] with Hospice, patient was treated for GI bleed with Symptomatic Anemia-stable - Patient received 2 units of PRBC. H&H stable -patient and her daughter have refused any procedure including panendoscopy -Abdominal CT revealed alex hepatitis and pericaval lymphadenopathy concerning for lymphoma. Extensive alex hepatitis and pericaval lymphadenopathy concerning for lymphoma: Appreciate input from Oncology patient refused any biopsy of adenopathy. Acute systolic CHF Exacerbation Cardiology was consulted however patient refused any studies including Lexiscan 2D echo showed LVEF of 35-40%. She was treated with metoprolol, low dose Lasix and JOHN inhibitor. Physical deconditioning, suspected related to anemia and CHF -PT was consulted. Hypothyroidism -Continued home medications levothyroxine Hypertension, chronic -Treated with Lopressor with holding parameters DVT prophylaxis: SCDs, hold chemical prophylaxis due to gi bleed GI prophylaxis: Protonix Pt Condition on Discharge: Fair Discharge Disposition: [facility] Discharge Time: > 30 minutes Discharge Instructions DIET: Follow Instructions for: Heart Healthy Diet Activities you can perform: Regular-No Restrictions Follow up Referrals: Gastroenterology Oncology PCP Follow-up - 1 Week New Medications: Acetaminophen (Eq Acetaminophen) 325 Mg Tab 650 MG PO Q4H PRN for Temp > 100.4, #30 TAB Furosemide (Furosemide) 20 Mg Tab 20 MG PO DAILY for Prevent Heart Failure, #30 TAB 3 Refills Lisinopril (Lisinopril) 5 Mg Tab 5 MG PO DAILY for Blood Pressure Management, #30 TAB Pantoprazole (Pantoprazole) 40 Mg Tab 40 MG PO DAILY for Prevent Stress Ulcers, #30 TAB Continued Medications: Levothyroxine (Levoxyl) 50 Mcg Tab 50 MCG PO DAILY for Thyroid, #30 TAB 0 Refills Metoprolol Tartrate (Metoprolol Tartrate) 50 Mg Tab 50 MG PO BID, #60 TAB 0 Refills Alex Voss MD Apr 07, 2017 13:07
== END 2017-04-07 20:27 | disposition hospice, home (50) | DRG 377 ==
LOC: NEPC 17:15 → NEDA 20:35 → NEPHCDU 22:53 → OBSVTOIN 23:38 → N06A 03-26 06:00
PROVIDERS: ADMIT Family Medicine; ATTEND Family Medicine
PROC: 30233N1 Transfusion of Nonautologous Red Blood Cells into Peripheral Vein, Percutaneous Approach (ICD-10-PCS; principal; 2017-03-24)
DX: K92.2 Gastrointestinal hemorrhage, unspecified (principal); I50.23 Acute on chronic systolic (congestive) heart failure; I42.9 Cardiomyopathy, unspecified; F03.90 Unspecified dementia, unspecified severity, without behavioral disturbance, psychotic disturbance, mood disturbance, and anxiety; I48.91 Unspecified atrial fibrillation; R59.0 Localized enlarged lymph nodes; R53.1 Weakness; E03.9 Hypothyroidism, unspecified; I10 Essential (primary) hypertension; R29.6 Repeated falls; D50.0 Iron deficiency anemia secondary to blood loss (chronic); N28.9 Disorder of kidney and ureter, unspecified
CPT/HCPCS: 36430; 70450; 71010; 71250; 72110; 73590; 74177; 80048; 80053; 81001; 82550; 82728; 83540; 83550; 83615; 83735; 83880; 84443; 84484; 85014; 85018; 85025; 85027; 85044; 85610; 85730; 86850; 86900; 86901; 86920; 87040; 87338; 93005; 93306; 99285; C9113; J1940; J7040; P9016; Q9963; Q9967

== ENCOUNTER 2017-05-01 09:46 | Emergency (ER) | payer MEDICARE, OTHER ==
[~2017-05-01 09:46] MED LIST changes: +ACET1TAB86 PO; +FURO20TA PO; +LEVO50TA53 PO; +LISI-519 PO; +METO50TA PO; +PANT40TA3 PO; -Z.0.NO CURRENT MEDS
[2017-05-01 09:52] VITALS: BP 112/65; PULSE 97; RESP 16; TEMP 97.9; O2SAT 95
[2017-05-01] MEDS ORDERED: CITA20TA4 PO (10:09)
[2017-05-01] MEDS ORDERED: SENE8.6T3 PO (10:09)
[2017-05-01] MEDS ORDERED: OMEP20TA PO (10:09)
[2017-05-01 10:52] LABS: BLOOD, URINE NEG (NEG); GLUCOSE,URINE NEG (NEG); KETONE, URINE NEG (NEG); NITRITE,URINE NEG (NEG)
[2017-05-01 11:13] VITALS: BP 115/50; PULSE 83; RESP 20; O2SAT 96
--- NOTE | 2017-05-01 11:13 | RADRPT ---
EXAM DATE/TIME: 05/01/2017 10:52 [facility] COMPARISON: CT BRAIN W/O CONTRAST, March 23, 2017, 19:18. INDICATIONS : Fall laceration to back of head. RADIATION DOSE: 62.51 CTDIvol (mGy) MEDICAL HISTORY : Unable to obtain SURGICAL HISTORY : Unable to obtain. ENCOUNTER: Initial ACUITY: 1 day PAIN SCALE: 8/10 LOCATION: cranial TECHNIQUE: Multiple contiguous axial images were obtained of the head. Using automated exposure control and adj ustment of the mA and/or kV according to patient size, radiation dose was kept as low as reasonably a chievable to obtain optimal diagnostic quality images. DICOM format image data is available electro nically for review and comparison. FINDINGS: CEREBRUM: Moderate diffuse cerebral atrophy. The ventricles are normal for degree of atrophy. No evidence of m idline shift, mass lesion, hemorrhage or acute infarction. No extra-axial fluid collections are seen . POSTERIOR FOSSA: The cerebellum and brainstem are intact. The 4th ventricle is midline. The cerebellopontine angle i s unremarkable. EXTRACRANIAL: The visualized portion of the orbits is intact. Small soft tissue hematoma in the left posterior michael etal scalp region. SKULL: The calvaria is intact. No evidence of skull fracture. CONCLUSION: 1. Small left posterior parietal scalp hematoma. 2. Senescent changes. 3. No acute intracranial normality. Xander Hilliard MD on May 01, 2017 at 11:09 Board Certified Radiologist. This report was verified electronically.
--- NOTE | 2017-05-01 11:19 | PD ---
HPI Chief Complaint: Fall Time Seen by Provider: 10:14 Travel History International Travel<30 days: No Contact w/Intl Traveler<30days: No Traveled to known affect area: No History of Present Illness HPI Patient is 89 year old female presents to the ER for evaluation of fall and head laceration. Apparently fell early this morning in the bathroom and had head laceration. She is on hospice for failure to thrive and probable abdominal cancer. Apparently admitted in february and diagnosed with GI bleed and abdominal lymphadenopathy which was thought to be cancer. Patient fairly lucid had apparently revoked her DNR but is somewhat confused today. She understands that she fell but is unable to discuss her PMH or other aspects of her care. [facility] she was completely oriented when left NH but on arrival, despite being oriented she is very difficult to get history from. PFSH Past Medical History Arthritis: No Asthma: No Autoimmune Disease: No Blood Disorders: No Anxiety: No Depression: No Heart Rhythm Problems: No Cancer: No Cardiovascular Problems: No High Cholesterol: No Chemotherapy: No Chest Pain: No Congestive Heart Failure: No COPD: No Cerebrovascular Accident: No Diabetes: No Endocrine: No Gastrointestinal Disorders: Yes GERD: No Glaucoma: No Genitourinary: No Headaches: No Hepatitis: No Hiatal Hernia: No Hypertension: Yes Immune Disorder: No Kidney Stones: No Musculoskeletal: Yes (weak and tired for a month) Neurologic: No Psychiatric: No Reproductive: No Respiratory: No Migraines: No Myocardial Infarction: No Radiation Therapy: No Renal Failure: No Seizures: No Sickle Cell Disease: No Sleep Apnea: No Thyroid Disease: Yes Ulcer: No ?: Not Past Surgical History Abdominal Surgery: Yes (two abdominal and pelvic scars all healed) AICD: No Appendectomy: No Arteriovenous Shunt: No Cardiac Surgery: No Cholecystectomy: No Ear Surgery: No Endocrine Surgery: No Eye Surgery: No Genitourinary Surgery: No Gynecologic Surgery: No Hysterectomy: Yes Insulin Pump: No Joint Replacement: No Oral Surgery: No Pacemaker: No Thoracic Surgery: No Other Surgery: Yes (two abdominal scars, she forgot surgery type) Social History Alcohol Use: No Tobacco Use: No Substance Use: No Allergies-Medications (Allergen,Severity, Reaction): Coded Allergies: No Known Allergies (Verified , 05/01/17) Reported Meds & Prescriptions Reported Meds & Active Scripts Active Reported Senexon (Sennosides) 8.6 Mg Tab 5 Mg PO BID Omeprazole 20 Mg Tab 20 Mg PO DAILY Citalopram (Citalopram Hydrobromide) 20 Mg Tab 20 Mg PO DAILY Levoxyl (Levothyroxine Sodium) 50 Mcg Tab 50 Mcg PO DAILY Metoprolol Tartrate 50 Mg Tab 25 Mg PO DAILY Review of Systems ROS Limitations: Altered Mental Status Physical Exam Narrative GENERAL: WD/WN in nad. Pleasantly confused. SKIN: Warm and dry. HEAD: No battles sign/no racoons eyes. There is a parietal laceration on the left, approximately 2cm. Normocephalic. EYES: Pupils equal and round. No scleral icterus. No injection or drainage. ENT: No nasal bleeding or discharge. Mucous membranes pink and moist. NECK: Trachea midline. No JVD. CARDIOVASCULAR: Regular rate and rhythm. RESPIRATORY: No accessory muscle use. Clear to auscultation. Breath sounds equal bilaterally. GASTROINTESTINAL: Abdomen soft, non-tender, nondistended. Hepatic and splenic margins not palpable. MUSCULOSKELETAL: Extremities without clubbing, cyanosis, or edema. No obvious deformities. NEUROLOGICAL: Awake and alert. No obvious cranial nerve deficits. Motor grossly within normal limits. Five out of 5 muscle strength in the arms and legs. Normal speech. PSYCHIATRIC: Pleasantly confused, oriented to person, place, and atleast partially to situation (understands current fall but does not recall last admission for GI bleeding). Data Data Last Documented VS Vital Signs Date Time Temp Pulse Resp B/P (MAP) Pulse Ox O2 Delivery O2 Flow Rate FiO2 05/01/17 14:09 05/01/17 11:13 83 20 96 05/01/17 09:[address] Brain W/O Iv Contrast(Rout) (05/01/17 ) Ct Cerv Spine W/O Contrast (05/01/17 ) Urinalysis - C+S If Indicated (05/01/17 10:32) Cath For Specimen (05/01/17 10:32) Lidocaine Pf 2% Inj (Xylocaine-Mpf 2% In (05/01/17 12:00) Labs Laboratory Tests Test 05/01/17 10:35 Urine Collection Type CATH Urine Color YELLOW Urine Turbidity CLEAR Urine pH 6.0 Urine Specific Mears 1.022 Urine Protein NEG mg/dL Urine Glucose (UA) NEG mg/dL Urine Ketones NEG mg/dL Urine Occult Blood NEG Urine Nitrite NEG Urine Bilirubin NEG Urine Leukocyte Esterase NEG Urine RBC 0-3 /hpf Urine WBC 0-2 /hpf Urine Squamous Epithelial Cells 0-5 /hpf Microscopic Urinalysis Comment CATH-CULT NOT IND Urine Collection Time 10:35 MDM Medical Decision Making Medical Screen Exam Complete: Yes Emergency Medical Condition: Yes Differential Diagnosis Head injury, neck injury, altered mental status, UTI. Narrative Course Had an at length conversation with the patient's daughter who is shared POA with her brother. Patient would not want agressive intervention and therefore no indcation for blood work. Daughter would like to forego blood work at this time. Requests cath for UA and agrees for CT. Last [address] 05/01/17 0000 Signed Impressions: Service Date/Time: Monday, May 01, 2017 10:52 - CONCLUSION: 1. Small left posterior parietal scalp hematoma. 2. Senescent changes. 3. No acute intracranial normality. Xander Hilliard MD Cervical Spine CT 05/01/17 0000 Signed Impressions: Service Date/Time: Monday, May 01, 2017 10:52 - CONCLUSION: 1. Mild anterior superior endplate compression fracture of the T4 vertebral body, new since 03/26/2017 examination. No evidence for retropulsed fragments. Bony central canal is patent. Xander Hilliard MD XR results discussed with Dr. Arguelles through his NECK CUTTER, no intervention necessary. Patient is stable for discharge. Diagnosis Primary Impression: Laceration of scalp Additional Impressions: Fall T4 vertebral fracture Referrals: Marcellus Arguelles MD Additional Instructions: Patient has superior endplate fracture of T4, discussed with Dr. Arguelles's NECK CUTTER who has reviewed the films with Dr. Arguelles and no intervention necessary. Can follow-up as needed. No urinary tract infection. [place] out in 5-7 days, can return to the emergency department for this or can be done with primary care physician. Disposition: 01 DISCHARGE HOME Condition: Stable Jamari Henning MD May 01, 2017 11:19
[2017-05-01 11:27] LABS: METHOD OF COLLECTION CATH; URINE COLOR YELLOW (YELLW/STRAW)
[2017-05-01 11:28] LABS: COMMENT (UR) CATH-CULT NOT IND; CULTURE IF INDICATED CATH CULTURE NOT IND; RBC, URINE 0-3 /hpf (0-3); SQUAMOUS EPITHELIAL CELL URINE 0-5 /hpf (0-5); WBC, URINE 0-2 /hpf (0-5)
--- NOTE | 2017-05-01 11:31 | RADRPT ---
EXAM DATE/TIME: 05/01/2017 10:52 [facility] COMPARISON: CT THORAX W/O CONTRAST, March 26, 2017, 17:06. INDICATIONS : Fall. RADIATION DOSE: 26.78 CTDIvol (mGy) MEDICAL HISTORY : unobtainable SURGICAL HISTORY : unobtainable ENCOUNTER: Initial ACUITY: 1 day PAIN SCALE: LOCATION: neck TECHNIQUE: Volumetric scanning of the cervical spine was performed. Multiplanar reconstructions in the sagittal, coronal and oblique axial planes were performed. Using automated exposure control and adjustment o f the mA and/or kV according to patient size, radiation dose was kept as low as reasonably achievable to obtain optimal diagnostic quality images. DICOM format image data is available electronically f or review and comparison. FINDINGS: There is mild anterior superior endplate compression deformity of the T4 vertebral body. This appears new since 03/26/2017 examination. There is no retropulsed fragments. Bony central canal is patent. Re maining vertebral body heights are intact. Remaining osseous structures are intact without evidence f or acute bony fracture. Dens is intact. Sagittal alignment is maintained. There is a normal C1-2 rela tionship. Facets are normally aligned. Visualized lung apices are clear without significant pneumotho rax. There are simple appearing bilateral small pleural effusions partially imaged. Degenerative spon dylosis of the lower cervical spine most prominently at C5-7. Thoracic arch is mildly ectatic measuri ng up to 3.1 cm. CONCLUSION: 1. Mild anterior superior endplate compression fracture of the T4 vertebral body, new since 7 examination. No evidence for retropulsed fragments. Bony central canal is patent. Xander Hilliard MD on May 01, 2017 at 11:22 Board Certified Radiologist. This report was verified electronically.
[2017-05-01] MEDS ORDERED: LIDOCAINE HCL 2% PF 5 ML VIAL INFIL ONE (12:00)
[2017-05-01] MEDS ORDERED: LIDOCAINE HCL 2% 20 ML VIAL INFIL ONE (12:00)
== END 2017-05-01 14:15 | disposition home or self-care (01) ==
LOC: PHED 09:46
DX: S01.91XA Laceration without foreign body of unspecified part of head, initial encounter (principal); S22.049A Unspecified fracture of fourth thoracic vertebra, initial encounter for closed fracture; S00.03XA Contusion of scalp, initial encounter; I10 Essential (primary) hypertension; W18.30XA Fall on same level, unspecified, initial encounter; Z79.899 Other long term (current) drug therapy
CPT/HCPCS: 70450; 72125; 81001; 99285; P9612